=== PATIENT | female | born 1990 | race African-American/Black ===

== ENCOUNTER 2016-11-20 16:36 | Emergency (ER) | payer MEDICAID ==
--- NOTE | 2016-11-20 16:57 | ER Document Report ---
ED Medical Screen (RME) - General Stated Complaint: ABDOMINAL PAIN Mode of Arrival: Ambulatory Information source: Patient Notes: 25 y/o F presents to ED c/o right lower abd/pelvic pain over the last 2 days. Reports had positive home urine test approximately 1 week ago. LMP 10/21, . Denies fever, dysuria, vaginal bleeding or discharge. I have greeted and performed a rapid initial assessment of this patient. A comprehensive ED assessment and evaluation of the patient, analysis of test results and completion of the medical decision making process will be conducted by additional ED providers. TRAVEL OUTSIDE OF THE [place] IN LAST 30 DAYS: No - Related Data Allergies/Adverse Reactions: No Known Allergies Allergy (Verified 11/20/16 16:56) Past Medical History - Social History Chew tobacco use (# tins/day): No Frequency of alcohol use: None Drug Abuse: None Renal/ Medical History: Reports: Hx Ovarian Cysts, Hx Pelvic Inflammatory Disease. Denies: Hx Peritoneal Dialysis - Immunizations Immunizations up to date: No Hx Diphtheria, Pertussis, Tetanus Vaccination: Yes Physical Exam - General General appearance: Appears well, Alert In distress: None - Respiratory Respiratory status: No respiratory distress
[2016-11-20 17:21] LABS: ABSOLUTE BASOPHILS # (AUTO) 0.1 10^3/uL (0.0-0.2); ABSOLUTE EOSINOPHILS # (AUTO) 0.1 10^3/uL (0.0-0.6); ABSOLUTE LYMPHOCYTES (AUTO) 2.8 10^3/uL (0.5-4.7); ABSOLUTE MONOCYTES (AUTO) 0.8 10^3/uL (0.1-1.4); ABSOLUTE NEUT (AUTO) 8.4 10^3/uL (1.7-8.2); BASOPHILS % (AUTO) 0.5 % (0-2); EOSINOPHILS % (AUTO) 0.8 % (0-6); HEMATOCRIT 34.8 % (36.0-47.0); HEMOGLOBIN 11.4 g/dL (12.0-15.5); HGB HCT DIFFERENCE -0.6; LYMPHOCYTES % (AUTO) 22.9 % (13-45); MEAN CORPUSCULAR HEMOGLOBIN 25.8 pg (27.0-33.4); MEAN CORPUSCULAR HGB CONC 32.7 g/dL (32.0-36.0); MEAN CORPUSCULAR VOLUME 79 fl (80-97); MONOCYTES % (AUTO) 6.3 % (3-13); RED BLOOD COUNT 4.41 10^6/uL (3.72-5.28); RED CELL DISTRIBUTION WIDTH 15.2 % (11.5-14.0); SEGMENTED NEUTROPHILS % (AUTO) 69.5 % (42-78); WHITE BLOOD COUNT 12.1 10^3/uL (4.0-10.5)
[2016-11-20 17:33] LABS: APPEARANCE,URINE CLEAR; BILIRUBIN,URINE NEGATIVE (NEGATIVE); GLUCOSE, URINE NEGATIVE (NEGATIVE); KETONES,URINE NEGATIVE (NEGATIVE); LEUKOCYTE ESTERASE,URINE TRACE (NEGATIVE); NITRITE,URINE NEGATIVE (NEGATIVE); PROTEIN,URINE NEGATIVE (NEGATIVE); URINE SPECIFIC GRAVITY 1.028; UROBILINOGEN,URINE NEGATIVE mg/dL (<2.0)
[2016-11-20 17:43] LABS: ALANINE AMINOTRANSFERASE 21 U/L (9-52); ALBUMIN 4.4 g/dL (3.5-5.0); ALKALINE PHOSPHATASE 53 U/L (38-126); ANION GAP 12 (5-19); ASPARTATE AMINO TRANSFERASE 14 U/L (14-36); BILIRUBIN,TOTAL 0.3 mg/dL (0.2-1.3); BLOOD UREA NITROGEN 12 mg/dL (7-20); CALCIUM 9.9 mg/dL (8.4-10.2); CARBON DIOXIDE 24 mmol/L (22-30); CHLORIDE 102 mmol/L (98-107); GLUCOSE 82 mg/dL (75-110); LIPASE 349.6 U/L (23-300); POTASSIUM 4.1 mmol/L (3.6-5.0); SODIUM 137.5 mmol/L (137-145); TOTAL PROTEIN 7.9 g/dL (6.3-8.2)
[2016-11-20] MEDS ORDERED: NORMAL SALINE 1000 ML 1,000 ML IV ONE (18:18)
--- NOTE | 2016-11-20 18:35 | ER Document Report ---
ED GI/ - General Mode of Arrival: Ambulatory Information source: Patient TRAVEL OUTSIDE OF THE [place] IN LAST 30 DAYS: No - HPI Patient complains to provider of: Other - see narrative Onset: Other Quality of pain: Cramping Associated symptoms: Other - positive at home test Similar symptoms previously: No Recently seen / treated by doctor: No <NISHA TELLO - Last Filed: 11/20/16 21:38> <VILLA GONG - Last Filed: 11/20/16 22:32> - General Chief Complaint: Abdominal Pain Stated Complaint: ABDOMINAL PAIN Notes: Patient is a 25 year old female that presents to the emergency department today with complaints of a positive at home test and RLQ abdominal pain. Patient states that she recently took a test which was positive. Patient states her last menstrual period was October 21. Patient states she is dizzy. Patient denies any vaginal bleeding, vomiting, diarrhea, fevers, or urinary symptoms. (NISHA TELLO) - Related Data Allergies/Adverse Reactions: No Known Allergies Allergy (Verified 11/20/16 16:56) Past Medical History - General Information source: Patient - Social History Smoking Status: Never Smoker Cigarette use (# per day): No Chew tobacco use (# tins/day): No Frequency of alcohol use: None Drug Abuse: None Lives with: Family Family History: Reviewed & Not Pertinent, Hypertension, Malignancy Patient has suicidal ideation: No Patient has homicidal ideation: No Renal/ Medical History: Reports: Hx Ovarian Cysts, Hx Pelvic Inflammatory Disease Surgical Hx: Negative - Immunizations Immunizations up to date: No Hx Diphtheria, Pertussis, Tetanus Vaccination: Yes <NISHA TELLO - Last Filed: 11/20/16 21:38> Review of Systems - Review of Systems Constitutional: denies: Fever EENT: No symptoms reported Cardiovascular: See HPI, Dizziness Respiratory: No symptoms reported Gastrointestinal: See HPI, Abdominal pain - RLQ. denies: Diarrhea, Vomiting Genitourinary: denies: Dysuria Female Genitourinary: See HPI, . denies: Vaginal bleeding Musculoskeletal: No symptoms reported Skin: No symptoms reported Hematologic/Lymphatic: No symptoms reported Neurological/Psychological: No symptoms reported -: Yes All other systems reviewed and negative <NISHA TELLO - Last Filed: 11/20/16 21:38> Physical Exam - Vital signs Interpretation: Normal - General General appearance: Appears well, Alert - HEENT Head: Normocephalic, Atraumatic Eyes: Normal Pupils: PERRL - Respiratory Respiratory status: No respiratory distress Chest status: Nontender Breath sounds: Normal Chest palpation: Normal - Cardiovascular Rhythm: Regular Heart sounds: Normal auscultation Murmur: No - Abdominal Inspection: Normal Distension: No distension Bowel sounds: Normal Tenderness: Nontender Organomegaly: No organomegaly - Back Back: Normal, Nontender - Extremities General upper extremity: Normal inspection, Nontender, Normal color, Normal ROM , Normal temperature General lower extremity: Normal inspection, Nontender, Normal color, Normal ROM , Normal temperature, Normal weight bearing. No: Elizabeth's sign - Neurological Neuro grossly intact: Yes Cognition: Normal Orientation: AAOx4 Vicky Coma Scale Eye Opening: Spontaneous Vicky Coma Scale Verbal: Oriented Vicky Coma Scale Motor: Obeys Commands [place] Coma Scale Total: 15 Speech: Normal Motor strength normal: LUE, RUE, LLE, RLE Sensory: Normal - Psychological Associated symptoms: Normal affect, Normal mood - Skin Skin Temperature: Warm Skin Moisture: Dry Skin Color: Normal <VILLA GONG - Last Filed: 11/20/16 22:32> - Vital signs Vitals: Temp Pulse Resp BP Pulse Ox 98.3 F 96 18 124/94 H 100 11/20/16 16:56 11/20/16 16:56 11/20/16 16:56 11/20/16 16:56 11/20/16 16:56 Course - Laboratory Result Diagrams: 11/20/16 17:00 11/20/16 17:00 <NISHA TELLO - Last Filed: 11/20/16 21:38> - Laboratory Result Diagrams: 11/20/16 17:00 11/20/16 17:00 - Diagnostic Test Radiology reviewed: Reports reviewed <VILLA GONG - Last Filed: 11/20/16 22:32> - Re-evaluation Re-evalutation: 11/20/16 Patient with slightly elevated hCG. Last period was one month ago. No evidence for ectopic at this time. Blood work and urine within normal limits. 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 Return if any worsening or concerning symptoms. Understands agrees with plan. Stable for discharge. (WODOWSKI,VILLA MARVIN) - Vital Signs Vital signs: Temp Pulse Resp BP Pulse Ox 98 F 99 16 119/79 98 11/20/16 20:51 11/20/16 20:51 11/20/16 20:51 11/20/16 20:51 11/20/16 20:51 - Laboratory Laboratory results interpreted by me: 11/20/16 11/20/16 11/20/16 17:00 17:00 17:00 WBC 12.1 H Hgb 11.4 L Hct 34.8 L MCV 79 L MCH 25.8 L RDW 15.2 H Absolute Neutrophils 8.4 H Lipase 349.6 H Beta HCG, Quant 943.05 H Ur Leukocyte Esterase TRACE H Urine Ascorbic Acid 20 H Discharge <NISHA TELLO - Last Filed: 11/20/16 21:38> <VILLA GONG - Last Filed: 11/20/16 22:32> - Discharge Clinical Impression: Qualifiers: Weeks of gestation: less than 8 weeks Qualified Code(s): Z3A.01 - Less than 8 weeks gestation of Condition: Stable Disposition: HOME, SELF-CARE Instructions: (OM) Additional Instructions: Please follow-up with an MECHANICAL COMMISSIONING ENGINEER next week. Referrals: [facility] [Provider Group] - 11/25/16 Scribe Attestation: 11/20/16 22:32 I personally performed the services described in the documentation, reviewed and edited the documentation which was dictated to the scribe in my presence, and it accurately records my words and actions. (VILLA GONG) Scribe Documentation - Scribe Written by Scribe:: Yeni De Los Santos, 11/20/2016 2144 acting as scribe for :: Napoleon <NISHA TELLO - Last Filed: 11/20/16 21:38>
[2016-11-20 20:51] VITALS: BP 119/79
== END 2016-11-20 21:27 | disposition home or self-care (01) ==
LOC: ER 16:36
DX: O26.91 Pregnancy related conditions, unspecified, first trimester (principal); R10.31 Right lower quadrant pain; R42 Dizziness and giddiness; Z3A.01 Less than 8 weeks gestation of pregnancy
CPT/HCPCS: 99284; 96360; 36415; 84702; 83690; 85025; 80053; 81001; 76817; J7030

== ENCOUNTER 2016-12-02 17:32 | Emergency (ER) | payer MEDICAID ==
--- NOTE | 2016-12-02 18:09 | ER Document Report ---
ED Medical Screen (RME) - General Stated Complaint: FEVER,THROAT PAIN Time seen by provider: 18:07 Mode of Arrival: Ambulatory Information source: Patient Notes: 25-year-old female presents to ED for flulike symptoms with a sore throat and fever started this morning. Last menstrual period October 21. States she was seen November 20 and told she was 4 weeks. States she is having body aches. I have greeted and performed a rapid initial assessment of this patient. A comprehensive ED assessment and evaluation of the patient, analysis of test results and completion of medical decision making process will be conducted by an additional ED providers. TRAVEL OUTSIDE OF THE [place] IN LAST 30 DAYS: No - Related Data Allergies/Adverse Reactions: No Known Allergies Allergy (Verified 12/02/16 18:05) Past Medical History Renal/ Medical History: Reports: Hx Ovarian Cysts, Hx Pelvic Inflammatory Disease. Denies: Hx Peritoneal Dialysis - Immunizations Immunizations up to date: No Hx Diphtheria, Pertussis, Tetanus Vaccination: Yes
--- NOTE | 2016-12-02 22:35 | ER Document Report ---
ED Flu Like - General Chief Complaint: Cold Symptoms Stated Complaint: FEVER,THROAT PAIN Mode of Arrival: Ambulatory Information source: Patient Notes: 25 y/o M presents to ED c/o sore throat, body aches, and chest wall pain over the last 2 days. Reports children in home have had similar symptoms over the last week. Reports associated chills with unmeasured temperature at home. States had headache yesterday which has resolved. Reports is approximately 6 weeks , . Denies abd pain, n/v, vaginal bleeding or discharge, sob , hemoptysis. TRAVEL OUTSIDE OF THE [place] IN LAST 30 DAYS: No - HPI Onset: Yesterday Timing/Duration: Intermittent, Persistent Quality of pain: Achy Severity: Mild Pain Level: 2 Similar symptoms previously: Yes Recently seen / treated by doctor: No - Related Data Allergies/Adverse Reactions: No Known Allergies Allergy (Verified 12/02/16 18:05) Past Medical History - General Information source: Patient - Social History Smoking Status: Never Smoker Chew tobacco use (# tins/day): No Frequency of alcohol use: None Drug Abuse: None Lives with: Family Family History: Reviewed & Not Pertinent, Hypertension, Malignancy Patient has suicidal ideation: No Patient has homicidal ideation: No Renal/ Medical History: Reports: Hx Ovarian Cysts, Hx Pelvic Inflammatory Disease. Denies: Hx Peritoneal Dialysis Surgical Hx: Negative - Immunizations Hx Diphtheria, Pertussis, Tetanus Vaccination: Yes Review of Systems - Review of Systems Constitutional: See HPI EENT: See HPI Cardiovascular: No symptoms reported Respiratory: See HPI Gastrointestinal: No symptoms reported Genitourinary: No symptoms reported Female Genitourinary: No symptoms reported Musculoskeletal: No symptoms reported Skin: No symptoms reported Hematologic/Lymphatic: No symptoms reported Neurological/Psychological: No symptoms reported -: Yes All other systems reviewed and negative Physical Exam - Vital signs Vitals: Temp Pulse Resp BP Pulse Ox 98.8 F 102 H 20 125/77 100 12/02/16 17:48 12/02/16 17:48 12/02/16 17:48 12/02/16 17:48 12/02/16 17:48 Interpretation: Normal - General General appearance: Appears well, Alert In distress: None - HEENT Head: Normocephalic, Atraumatic Eyes: Normal Conjunctiva: Normal Eyelashes: Normal Pupils: PERRL Ears: Normal External canal: Normal Tympanic membrane: Normal Sinus: Normal Nasal: Normal Mouth/Lips: Normal Mucous membranes: Normal, Moist Pharynx: Erythema. No: Normal, Blood in hypopharynx, Exudate, Peritonsillar abscess, Post nasal drainage, Retropharyngeal abscess, Tonsillar hypertrophy, Uvular edema, Potential airway comprom., Other Neck: Normal. No: Anterior cervical chain, Posterior cervical chain, Lymphadenopathy, Meningismus, Subcutaneous emphysema - Respiratory Respiratory status: No respiratory distress. No: Labored, Tachypnea Chest status: Tender - mild tenderness with palpation to left upper anterior chest wall and left upper back worse when engaging left shoulder joint. No instability, crepitus, swelling, erythema, or warmth.. No: Nontender, Chest mass, Ecchymosis, No pleuritic chest pain, Pain on movement, Pain with cough, Pain with deep breathing, Wounds, Accessory muscle use, Prolonged expirations, Splinting, Other Breath sounds: Normal - CTAB. No: Rhonchi, Wheezing Chest palpation: Tender. No: Normal, Flail segment, [place] frothy sputum, Purulent sputum, Subcutaneous emphysema, Sucking chest wound, Ecchymosis, Wounds , Other - Cardiovascular Rhythm: Regular Heart sounds: Normal auscultation Murmur: No Pulses: Normal: Radial Normal capillary refill: Yes - Abdominal Inspection: Normal Distension: No distension Bowel sounds: Normal Tenderness: Nontender. No: Tender, McBurney's point, Sims's sign, Guarding, Rebound, Other Organomegaly: No organomegaly - Back Back: Normal, Nontender. No: Tender, Deformity/step-off, CVA tenderness, Vertebra tenderness, Scars, Scoliosis, Wounds, Other - Extremities General upper extremity: Normal inspection, Nontender, Normal color, Normal ROM , Normal temperature General lower extremity: Normal inspection, Nontender, Normal color, Normal ROM , Normal temperature, Normal weight bearing. No: Elizabeth's sign - Neurological Neuro grossly intact: Yes Cognition: Normal Orientation: AAOx4 Vicky Coma Scale Eye Opening: Spontaneous [place] Coma Scale Verbal: Oriented Vicky Coma Scale Motor: Obeys Commands [place] Coma Scale Total: 15 Speech: Normal Motor strength normal: LUE, RUE, LLE, RLE Sensory: Normal - Psychological Associated symptoms: Normal affect, Normal mood - Skin Skin Temperature: Warm Skin Moisture: Dry Skin Color: Normal Course - Re-evaluation Re-evalutation: 12/02/16 22:37 Patient hemodynamically stable, in no distress, afebrile, nontoxic, and appears well-hydrated. Rapid strep and influenza screen negative. Patient physical exam unremarkable with no suggestion of emergent infectious or cardiopulmonary etiology at this time. Will treat for likely uncomplicated viral illness at this time. Patient appears stable for discharge and agrees with home care, follow-up, and ED return precautions. - Vital Signs Vital signs: Temp Pulse Resp BP Pulse Ox 98.8 F 92 18 129/77 H 99 12/02/16 17:48 12/02/16 22:48 12/02/16 22:48 12/02/16 22:48 12/02/16 22:48 Discharge - Discharge Clinical Impression: Nonspecific syndrome suggestive of viral illness Condition: Stable Disposition: HOME, SELF-CARE Instructions: Acetaminophen, Chest Wall Pain ([facility]), Sore Throat ([facility]), Viral Syndrome ([facility]), Warm Packs ([facility]), Family Physicians / Practices Additional Instructions: Your rapid strep throat test and influenza screen were negative today. A culture of your throat has been obtained. If bacterial growth is noted that requires treatment with antibiotic, you will be contacted within 2 days with instructions on treatment. If you do not receive a call, please call back for results. Drink plenty of fluids, at least 2-3 liters of water per day. Continue taking a daily vitamin. Follow-up with your primary care provider this week. Return to the emergency department for any worsening symptoms or concerns. Referrals: [facility] [NO [facility]AL MD] - Follow up tomorrow
[2016-12-02 22:52] VITALS: BP 129/77
== END 2016-12-02 22:51 | disposition home or self-care (01) ==
LOC: ER 17:32
DX: B34.9 Viral infection, unspecified (principal); R50.9 Fever, unspecified; R07.0 Pain in throat; R52 Pain, unspecified; R07.89 Other chest pain; Z3A.01 Less than 8 weeks gestation of pregnancy
CPT/HCPCS: 87070; 87804; 87880; 99283

== ENCOUNTER 2017-01-11 21:42 | Emergency (ER) | payer MEDICAID ==
[2017-01-12] MEDS ORDERED: ACETAMINOPHEN 325 MG TABLET PO ONE (02:40)
[2017-01-12 03:13] LABS: APPEARANCE,URINE CLEAR; BILIRUBIN,URINE NEGATIVE (NEGATIVE); GLUCOSE, URINE NEGATIVE (NEGATIVE); KETONES,URINE NEGATIVE (NEGATIVE); LEUKOCYTE ESTERASE,URINE TRACE (NEGATIVE); NITRITE,URINE NEGATIVE (NEGATIVE); PROTEIN,URINE NEGATIVE (NEGATIVE); URINE SPECIFIC GRAVITY 1.011; UROBILINOGEN,URINE NEGATIVE mg/dL (<2.0)
--- NOTE | 2017-01-12 04:39 | ER Document Report ---
ED General Pain - General Chief Complaint: Back and L side pain, nausea Stated Complaint: LEFT PAIN ALL DOWN SIDE GOING INTO BACK/NAUSEA Notes: Patient is a 12 week 26-year-old female presents emergency Department complaining of suprapubic discomfort and nausea. Patient states she has followed with OBGYN, Has had US to confirm IUP. She states this pain is constant and worse along the left side of her belly with associated nausea. she has had this discomfort for three days. She has not taken any medication for it. She denies pyuria, hematuria, urinary frequency, urgency, vaginal pain/ discomfort/discharge/bleeding. [facility] TRAVEL OUTSIDE OF THE [place] IN LAST 30 DAYS: No - Related Data Allergies/Adverse Reactions: No Known Allergies Allergy (Verified 12/02/16 18:05) Past Medical History - Social History Smoking Status: Never Smoker Frequency of alcohol use: None Drug Abuse: None Family History: Reviewed & Not Pertinent, Hypertension, Malignancy Renal/ Medical History: Reports: Hx Ovarian Cysts, Hx Pelvic Inflammatory Disease. Denies: Hx Peritoneal Dialysis Surgical Hx: Negative - Immunizations Immunizations up to date: No Hx Diphtheria, Pertussis, Tetanus Vaccination: Yes Review of Systems - Review of Systems Gastrointestinal: See HPI -: Yes All other systems reviewed and negative Physical Exam - Vital signs Vitals: Temp Pulse Resp BP Pulse Ox 98.5 F 93 19 111/69 98 01/11/17 22:06 01/11/17 22:06 01/11/17 22:06 01/11/17 22:06 01/11/17 22:06 - Notes Notes: PHYSICAL EXAM GENERAL: Alert, interacts well. HEAD: Normocephalic, atraumatic. EYES: Pupils equal, round, and reactive to light. Extraocular movements intact. ENT: Oral mucosa moist, tongue midline. NECK: Full range of motion. Supple. Trachea midline. LUNGS: Clear to auscultation bilaterally, no wheezes, rales, or rhonchi. No respiratory distress. HEART: Regular rate and rhythm. No murmurs, gallops, or rubs. ABDOMEN: Soft, nondistended, mild tenderness in suprapubic area. No guarding, rebound, or rigidity.. Bowel sounds present in all 4 quadrants. Female exam deferred EXTREMITIES: Moves all 4 extremities spontaneously. No edema, radial and dorsalis pedis pulses 2/4 bilaterally. No cyanosis. NEUROLOGICAL: Alert and oriented x4. Normal speech. PSYCH: Normal affect, normal mood. SKIN: Warm, dry, normal turgor. No rashes or lesions noted. Course - Re-evaluation Re-evalutation: 01/12/17 07:43 Patient is a 26-year-old female presents emergency Department complaining of suprapubic pain with nausea. Patient responded well to Zofran and Tylenol. No evidence of urinary tract infection on UA. Patient asymptomatic for any concerns for bacterial vaginosis, yeast infection. Transvaginal ultrasound reveals a 12 week living IUP as well as fibroid uterus. Discussed with patient the use of Tylenol and can follow-up with OB - Vital Signs Vital signs: Temp Pulse Resp BP Pulse Ox 98.0 F 92 16 120/81 99 01/12/17 06:29 01/12/17 06:29 01/12/17 06:29 01/12/17 06:29 01/12/17 06:29 - Laboratory Laboratory results interpreted by me: 01/12/17 01/12/17 01:50 02:59 Beta HCG, Quant 06642.00 H Ur Leukocyte Esterase TRACE H Urine Ascorbic Acid 40 H - Diagnostic Test Radiology reviewed: Reports reviewed Discharge - Discharge Clinical Impression: Abdominal pain affecting Condition: Good Disposition: HOME, SELF-CARE Instructions: Abdominal Pain ([facility]), Acetaminophen Additional Instructions: Please be sure to follow up with OBGYN this week if your symptoms are not improving with [id number] remedies. Prescriptions: Ondansetron [Zofran Odt 4 mg Tablet] 1 - 2 tab PO Q4H PRN #15 tab.rapdis PRN Reason: For Nausea/Vomiting Forms: Parent Work Note, Return to Work
[2017-01-12] MEDS ORDERED: ONDANSETRON 4 MG TAB.RAPDIS PO ONE (05:07)
[2017-01-12 06:39] VITALS: BP 120/81
== END 2017-01-12 06:29 | disposition home or self-care (01) ==
LOC: ER 21:42
DX: O26.91 Pregnancy related conditions, unspecified, first trimester (principal); R10.9 Unspecified abdominal pain; R11.0 Nausea; R10.2 Pelvic and perineal pain; D25.9 Leiomyoma of uterus, unspecified; Z3A.12 12 weeks gestation of pregnancy
CPT/HCPCS: 99284; 86900; 86901; 36415; 84702; 81001; 76817; 93976; J3490; S0119

== ENCOUNTER 2017-01-13 21:29 | Inpatient (IN) | payer MEDICAID ==
[2017-01-13 22:18] LABS: ABSOLUTE BASOPHILS # (AUTO) 0.1 10^3/uL (0.0-0.2); ABSOLUTE LYMPHOCYTES (AUTO) 1.6 10^3/uL (0.5-4.7); ABSOLUTE MONOCYTES (AUTO) 0.7 10^3/uL (0.1-1.4); BASOPHILS % (AUTO) 0.4 % (0-2); EOSINOPHILS % (AUTO) 0.1 % (0-6); HEMATOCRIT 33.4 % (36.0-47.0); HGB HCT DIFFERENCE -0.4; LYMPHOCYTES % (AUTO) 10.7 % (13-45); MEAN CORPUSCULAR HEMOGLOBIN 25.3 pg (27.0-33.4); MEAN CORPUSCULAR VOLUME 77 fl (80-97); MONOCYTES % (AUTO) 4.3 % (3-13); RED BLOOD COUNT 4.35 10^6/uL (3.72-5.28); RED CELL DISTRIBUTION WIDTH 14.5 % (11.5-14.0); SEGMENTED NEUTROPHILS % (AUTO) 84.5 % (42-78); WHITE BLOOD COUNT 15.3 10^3/uL (4.0-10.5)
[2017-01-13 22:30] LABS: ALANINE AMINOTRANSFERASE 17 U/L (9-52); ALBUMIN 4.3 g/dL (3.5-5.0); ALKALINE PHOSPHATASE 56 U/L (38-126); ANION GAP 17 (5-19); ASPARTATE AMINO TRANSFERASE 17 U/L (14-36); BILIRUBIN,DIRECT 0.3 mg/dL (0.0-0.4); BILIRUBIN,TOTAL 0.8 mg/dL (0.2-1.3); BLOOD UREA NITROGEN 8 mg/dL (7-20); CARBON DIOXIDE 18 mmol/L (22-30); CHLORIDE 103 mmol/L (98-107); CREATININE RESULT 0.62 mg/dL (0.52-1.25); GLUCOSE 93 mg/dL (75-110); LIPASE 119.6 U/L (23-300); SODIUM 137.6 mmol/L (137-145)
[2017-01-14] MEDS ORDERED: ONDANSETRON HCL INJ/PF 4 MG/2 ML SDV IV ONE ×2 (00:06→02:26)
[2017-01-14] MEDS ORDERED: MORPHINE SULFATE 10 MG/ML INJ IV ONE ×2 (00:06→00:37)
[2017-01-14] MEDS ORDERED: NORMAL SALINE 1000 ML 1,000 ML IV ONE ×2 (00:07→03:06)
--- NOTE | 2017-01-14 00:09 | ER Document Report ---
ED GI/ - General Chief Complaint: Shortness Of Breath Stated Complaint: ABDOMINAL PAIN Time seen by provider: 00:05 Notes: Patient is a 26-year-old female, A3 at 12 weeks gestation by first trimester ultrasound, that comes to the emergency department for chief complaint of lower abdominal pain and nausea, she states she has had intermittent pains since Wednesday but today she had persistent worsening pain which was different. She also reports left flank pain (she points to the lower buttocks). She denies vomiting, fever, vaginal bleeding, dysuria, discharge. Patient states that she was seen by SCREEN PRINTING PASTER yesterday and told she had a fibroid in her uterus near her cervix. Patient denies any other medical history. TRAVEL OUTSIDE OF THE [place] IN LAST 30 DAYS: No - Related Data Allergies/Adverse Reactions: No Known Allergies Allergy (Verified 12/02/16 18:05) Past Medical History - General Information source: Patient - Social History Smoking Status: Never Smoker Frequency of alcohol use: None Drug Abuse: None Lives with: Family Family History: Reviewed & Not Pertinent, Hypertension, Malignancy Patient has suicidal ideation: No Patient has homicidal ideation: No Renal/ Medical History: Reports: Hx Ovarian Cysts, Hx Pelvic Inflammatory Disease. Denies: Hx Peritoneal Dialysis Surgical Hx: Negative - Immunizations Immunizations up to date: No Hx Diphtheria, Pertussis, Tetanus Vaccination: Yes Review of Systems - Review of Systems Constitutional: See HPI EENT: No symptoms reported Cardiovascular: No symptoms reported Respiratory: No symptoms reported Gastrointestinal: See HPI Genitourinary: See HPI Female Genitourinary: See HPI Musculoskeletal: No symptoms reported Skin: No symptoms reported Hematologic/Lymphatic: No symptoms reported Neurological/Psychological: No symptoms reported Physical Exam - Vital signs Vitals: Temp Pulse Resp BP Pulse Ox 99.1 F 120 H 24 H 125/76 99 01/13/17 21:53 01/13/17 21:53 01/13/17 21:53 01/13/17 21:53 01/13/17 21:53 Interpretation: Normal - General General appearance: Anxious In distress: Moderate - Patient appears to be very uncomfortable, has difficulty staying still on the bed - HEENT Head: Normocephalic, Atraumatic Eyes: Normal Pupils: PERRL - Respiratory Respiratory status: No respiratory distress Chest status: Nontender Breath sounds: Normal Chest palpation: Normal - Cardiovascular Rhythm: Regular, Tachycardia Heart sounds: Normal auscultation, S1 appreciated, S2 appreciated Murmur: No - Abdominal Inspection: Normal Distension: No distension Bowel sounds: Normal Tenderness: Tender - Patient is very tender in the mid to lower abdomen, worse in the right lower quadrant but also present in the left lower quadrant Organomegaly: No organomegaly - Back Back: Normal, Nontender, CVA tenderness - Left-sided - Extremities General upper extremity: Normal inspection, Nontender, Normal color, Normal ROM , Normal temperature General lower extremity: Normal inspection, Nontender, Normal color, Normal ROM , Normal temperature, Normal weight bearing. No: Elizabeth's sign - Neurological Neuro grossly intact: Yes Cognition: Normal Orientation: AAOx4 [place] Coma Scale Eye Opening: Spontaneous [place] Coma Scale Verbal: Oriented Vicky Coma Scale Motor: Obeys Commands [place] Coma Scale Total: 15 Speech: Normal Motor strength normal: LUE, RUE, LLE, RLE Sensory: Normal - Psychological Associated symptoms: Anxious - Anxious and somewhat tearful - Skin Skin Temperature: Warm Skin Moisture: Dry Skin Color: Normal Course - Re-evaluation Re-evalutation: Patient tachycardic, obviously in pain, pain actually appears to be the worst in the right lower quadrant on initial examination, leukocytosis of 15,000 with elevated neutrophils, chills but does not have fever. Difficult to examine patient because of her discomfort. Patient given morphine, Zofran, IV fluids. Ultrasound performed, no evidence of appendicitis, ultrasound shows enlargement fibroid uterus with an IUP with a heart beat present. On reexamination patient' s pain appears to be in the mid to left lower quadrant now, much less so in the right lower quadrant, nonspecific or suggestive of appendicitis. Easier to examine now, has obvious left-sided CVA tenderness. Urine shows bacteria, white blood cells, red blood cells. Giving dose of Rocephin. Patient denying any vaginal bleeding or discharge. Patient has recently had a pelvic exam per patient. No free fluid on ultrasound suggesting PID. Patient was discussed with Dr. Alonzo, recommends consultation with SCREEN PRINTING PASTER and admission for pyelonephritis. Discussed with Dr. Mccartney, albumin reinforced concrete inspector, she recommends that patient probably has a combination of pain from growing fibroid and from pyelonephritis , recommends that she will consult on the patient. Discussed with Dr. Lyman, patient will be admitted to the medical floor. - Vital Signs Vital signs: Temp Pulse Resp BP Pulse Ox 98.9 F 101 H 19 135/71 H 98 01/14/17 00:25 01/14/17 00:25 01/14/17 00:25 01/14/17 00:25 01/14/17 00:25 - Laboratory Result Diagrams: 01/13/17 22:00 01/13/17 22:00 Laboratory results interpreted by me: 01/13/17 01/13/17 01/14/17 22:00 22:00 01:29 WBC 15.3 H Hgb 11.0 L Hct 33.4 L MCV 77 L MCH 25.3 L RDW 14.5 H Seg Neutrophils % 84.5 H Lymphocytes % 10.7 L Absolute Neutrophils 13.0 H Carbon Dioxide 18 L Beta HCG, Quant 73647.00 H Urine Ketones 80 H Urine Blood SMALL H Ur Leukocyte Esterase LARGE H Discharge - Discharge Clinical Impression: Flank pain, Tachycardia Abdominal pain Qualifiers: Abdominal location: lower abdomen, unspecified Qualified Code(s): R10.30 - Lower abdominal pain, unspecified Fibroid uterus Qualifiers: Uterine leiomyoma location: unspecified location Qualified Code(s): D25.9 - Leiomyoma of uterus, unspecified Urinary tract infection Qualifiers: Urinary tract infection type: site unspecified Hematuria presence: without hematuria Qualified Code(s): N39.0 - Urinary tract infection, site not specified Leukocytosis Qualifiers: Leukocytosis type: unspecified Qualified Code(s): D72.829 - Elevated white blood cell count, unspecified Admitting Provider: Hospitalist Unit Admitted: Surgical Floor
[2017-01-14 01:56] LABS: APPEARANCE,URINE CLOUDY; BILIRUBIN,URINE NEGATIVE (NEGATIVE); GLUCOSE, URINE NEGATIVE (NEGATIVE); KETONES,URINE 80 mg/dL (NEGATIVE); LEUKOCYTE ESTERASE,URINE LARGE (NEGATIVE); NITRITE,URINE NEGATIVE (NEGATIVE); PROTEIN,URINE NEGATIVE (NEGATIVE); URINE SPECIFIC GRAVITY 1.009; UROBILINOGEN,URINE NEGATIVE mg/dL (<2.0)
[2017-01-14] MEDS ORDERED: CEFTRIAXONE 1 GM/D5W RTU 50 ML IV ONE (02:17)
[2017-01-14] MEDS ORDERED: DIPHENHYDRAMINE HCL 50 MG/ML VIAL IV ONE ×2 (02:26→21:30)
[2017-01-14] MEDS ORDERED: CALCIUM CARBONATE 500 MG TABLET PO PRN (05:45)
[2017-01-14] MEDS ORDERED: IPRATROPIUM/ALBUTEROL 0.5-2.5 MG/3 ML AMPUL NEB PRN (05:45)
[2017-01-14] MEDS ORDERED: ACETAMINOPHEN 325 MG TABLET PO PRN ×2 (05:46→18:58)
[2017-01-14] MEDS ORDERED: ONDANSETRON HCL INJ/PF 4 MG/2 ML SDV IV PRN (05:46)
[2017-01-14] MEDS ORDERED: ACYCLOVIR 200 MG CAPSULE PO SCH (06:00)
[2017-01-14] MEDS ORDERED: HEPARIN SOD (PORCINE) 5,000 UNIT/ML 1 ML SYRINGE SUBCUT SCH (06:00)
[2017-01-14] MEDS ORDERED: NORMAL SALINE 1000 ML 1,000 ML IV SCH (06:00)
[2017-01-14] MEDS ORDERED: CALCIUM CARBONATE 500 MG TAB.CHEW PO PRN ×2 (06:04→06:05)
[2017-01-14 06:14] LABS: ABSOLUTE LYMPHOCYTES (AUTO) 1.7 10^3/uL (0.5-4.7); ABSOLUTE MONOCYTES (AUTO) 0.6 10^3/uL (0.1-1.4); ABSOLUTE NEUT (AUTO) 8.9 10^3/uL (1.7-8.2); BASOPHILS % (AUTO) 0.3 % (0-2); EOSINOPHILS % (AUTO) 0.1 % (0-6); LYMPHOCYTES % (AUTO) 14.8 % (13-45); MEAN CORPUSCULAR HEMOGLOBIN 25.7 pg (27.0-33.4); MEAN CORPUSCULAR HGB CONC 33.2 g/dL (32.0-36.0); MEAN CORPUSCULAR VOLUME 77 fl (80-97); MONOCYTES % (AUTO) 5.5 % (3-13); RED BLOOD COUNT 3.88 10^6/uL (3.72-5.28); RED CELL DISTRIBUTION WIDTH 14.7 % (11.5-14.0); SEGMENTED NEUTROPHILS % (AUTO) 79.3 % (42-78); WHITE BLOOD COUNT 11.2 10^3/uL (4.0-10.5)
[2017-01-14] MEDS ORDERED: LACTULOSE SYRUP 20 GM/30 ML UDCUP PO ONE (06:15)
[2017-01-14] MEDS ORDERED: MINERAL OIL ENEMA 133 ML PR PRN ×2 (06:23→16:30)
[2017-01-14 06:26] LABS: ANION GAP 12 (5-19); BLOOD UREA NITROGEN 5 mg/dL (7-20); CALCIUM 9.1 mg/dL (8.4-10.2); CARBON DIOXIDE 20 mmol/L (22-30); CHLORIDE 108 mmol/L (98-107); CREATININE RESULT 0.64 mg/dL (0.52-1.25); GLUCOSE 88 mg/dL (75-110); SODIUM 139.8 mmol/L (137-145)
--- NOTE | 2017-01-14 06:34 | PDOC H&P ---
History of Present Illness Admission Date/PCP: 01/14/17 05:57 Patient complains of: Abdominal pain History of Present Illness: MAR DUKE is a 26 year old female with a past medical history of 12 weeks , complicated by miscarriage 3 and uterine fibroids. Who's had exceptional abdominal pain over a 6 day associated with nausea vomiting and at least 5 days of severe constipation. She denies dysuria malodorous urine or discharge. In the emergency room she's found to have leukocytosis and a urinalysis somewhat suggestive of urinary tract infection, ultrasound of the kidneys are reassuring and without suggestion of hydronephrosis or pyelonephritis. she started on empiric antibiotics and referred to the hospitalist for admission. Past Medical History Renal/ Medical History: Reports: Other - Uterine fibroids Hematology: Reports: Anemia Social History Information Source: Patient, Relative Lives with: Family Smoking Status: Never Smoker Frequency of Alcohol Use: None Hx Recreational Drug Use: No Hx Prescription Drug Abuse: No - Advance Directive Resuscitation Status: Full Code Family History Family History: DM, Hypertension, Malignancy Parental Family History Reviewed: Yes Children Family History Reviewed: Yes Sibling(s) Family History Reviewed.: Yes Medication/Allergy Home Medications: Hydrocodone/Acetaminophen [Vicodin 5-300 mg Tablet] 1 - 2 tab PO ASDIR PRN #15 tab 03/30/15 Oxycodone HCl/Acetaminophen [Percocet 5-325 mg Tablet] 1 - 2 tab PO ASDIR PRN # 15 tablet 04/03/15 Hydrocodone Bit/Acetaminophen [Hydrocodon-Acetaminophen 5-325] 1 each PO Q4HP PRN #15 tablet 04/16/15 Acyclovir [Zovirax 200 mg Capsule] 200 mg PO Q4H #50 capsule 06/30/15 Metronidazole 500 mg PO BID #14 tablet 06/30/15 Oxycodone HCl/Acetaminophen [Percocet 5-325 mg Tablet] 1 - 2 tab PO Q4H PRN #25 tablet 06/30/15 Metronidazole [Flagyl 500 mg Tablet] 500 mg PO Q6H #28 tablet 08/17/15 Hydrocodone/Acetaminophen [[place] 5-325 mg Tablet] 1 tab PO Q6H PRN #8 tablet 08/05 Ondansetron [Zofran Odt 4 mg Tablet] 1 - 2 tab PO Q4H PRN #15 tab.rapdis Allergies/Adverse Reactions: No Known Allergies Allergy (Verified 12/02/16 18:05) Review of Systems Constitutional: PRESENT: anorexia. ABSENT: chills, fever(s), headache(s), weight gain, weight loss Eyes: ABSENT: visual disturbances Ears: ABSENT: hearing changes Cardiovascular: ABSENT: chest pain, dyspnea on exertion, edema, orthropnea, palpitations Respiratory: ABSENT: cough, hemoptysis Gastrointestinal: PRESENT: abdominal pain, bloating, constipation, nausea. ABSENT: diarrhea, hematemesis, hematochezia, vomiting Genitourinary: ABSENT: dysuria, hematuria Musculoskeletal: ABSENT: joint swelling Integumentary: ABSENT: rash, wounds Neurological: ABSENT: abnormal gait, abnormal speech, confusion, dizziness, focal weakness, syncope Psychiatric: ABSENT: anxiety, depression, homidical ideation, suicidal ideation Endocrine: ABSENT: cold intolerance, heat intolerance, polydipsia, polyuria Hematologic/Lymphatic: ABSENT: easy bleeding, easy bruising Physical Exam Vital Signs: Temp Pulse Resp BP Pulse Ox 98.9 F 101 H 19 135/71 H 98 01/14/17 00:25 01/14/17 00:25 01/14/17 00:25 01/14/17 00:25 01/14/17 00:25 General appearance: PRESENT: cooperative, mild distress Head exam: PRESENT: atraumatic, normocephalic Eye exam: PRESENT: conjunctiva pink, EOMI, PERRLA. ABSENT: scleral icterus Ear exam: PRESENT: normal external ear exam Mouth exam: PRESENT: moist, tongue midline Neck exam: ABSENT: carotid bruit, JVD, lymphadenopathy, thyromegaly Respiratory exam: PRESENT: clear to auscultation rene. ABSENT: rales, rhonchi, wheezes Cardiovascular exam: PRESENT: RRR. ABSENT: diastolic murmur, rubs, systolic murmur Pulses: PRESENT: normal dorsalis pedis pul Vascular exam: PRESENT: normal capillary refill GI/Abdominal exam: PRESENT: firm, hypoactive bowel sounds, tenderness - Left lower quadrant pain with palpation to the sigmoid. ABSENT: distended, guarding , mass, Sims's sign, organolmegaly, rebound Rectal exam: PRESENT: deferred Extremities exam: PRESENT: full ROM. ABSENT: calf tenderness, clubbing, pedal edema Neurological exam: PRESENT: alert, awake, oriented to person, oriented to place , oriented to time, oriented to situation, CN II-XII grossly intact. ABSENT: motor sensory deficit Psychiatric exam: PRESENT: appropriate affect, normal mood. ABSENT: homicidal ideation, suicidal ideation Skin exam: PRESENT: dry, intact, warm. ABSENT: cyanosis, rash Results Laboratory Results: 01/14/17 06:02 01/14/17 06:02 WBC 11.2 H RBC 3.88 Hgb 10.0 L Hct 30.0 L MCV 77 L MCH 25.7 L MCHC 33.2 RDW 14.7 H Plt Count 186 Seg Neutrophils % 79.3 H Lymphocytes % 14.8 Monocytes % 5.5 Eosinophils % 0.1 Basophils % 0.3 Absolute Neutrophils 8.9 H Absolute Lymphocytes 1.7 Absolute Monocytes 0.6 Absolute Eosinophils 0.0 Absolute Basophils 0.0 Impressions: Obstetrics Ultrasound 01/14/17 00:20 IMPRESSION: LIVING INTRAUTERINE , at-risk due to a fibroid uterus including large lower uterine/cervical fibroids measuring 10 cm and 4.3 cm. EGA 12w 4d Trimester of : First - 0 to 13 weeks. Abdomen Ultrasound 01/14/17 00:21 IMPRESSION: As above. Renal Ultrasound 01/14/17 03:44 IMPRESSION: No acute or suspicious findings of the renal system.Known gravid uterus and fibroid uterus reported separately on Ob pelvic ultrasound from the same day. Assessment & Plan - Diagnosis (1) Fecal impaction Is this a current diagnosis for this admission?: YesPlan: This is clear by history and exam I'll avoid radiation exposure to the fetus she will receive lactulose by mouth and mineral oil enema, consider manual disimpaction if unsuccessful (2) Abdominal pain Qualifiers: Abdominal location: lower abdomen, unspecified Qualified Code(s): R10.30 - Lower abdominal pain, unspecified Is this a current diagnosis for this admission?: YesPlan: Patient be treated with narcotics which has exacerbated the issue and I will not reorder (3) Fibroid uterus Qualifiers: Uterine leiomyoma location: unspecified location Qualified Code(s): D25.9 - Leiomyoma of uterus, unspecified Is this a current diagnosis for this admission?: YesPlan: Unclear complicating factor will obtain [employer] consultation for evaluation (4) Leukocytosis Qualifiers: Leukocytosis type: unspecified Qualified Code(s): D72.829 - Elevated white blood cell count, unspecified Is this a current diagnosis for this admission?: YesPlan: Possibly urinary tract infection empiric antibiotics, though clearly the stress of severe pain and fecal impaction is a plausible cause. Will reevaluate with CBC (5) Urinary tract infection Qualifiers: Urinary tract infection type: site unspecified Hematuria presence: without hematuria Qualified Code(s): N39.0 - Urinary tract infection, site not specified Is this a current diagnosis for this admission?: YesPlan: Urine culture obtained and pending receiving empiric antibiotics and IV fluids - Time Time Spent: 50 to 70 Minutes - Inpatient Certification Medical Necessity: Need Close Monitoring Due to Risk of Patient Decompensation
[2017-01-14] MEDS ORDERED: MINERAL OIL ENEMA 133 ML PR ONE (07:00)
[2017-01-14] MEDS: CEFTRIAXONE 1 GM/D5W RTU 1 GM/50 ML RTUPB IV SCH (10:53)
--- NOTE | 2017-01-14 11:17 | PDOC CONSULTATION ---
History of Present Illness Admission Date/PCP: 01/14/17 05:46 Past Medical History Renal/ Medical History: Reports: Other - Uterine fibroids Social History Lives with: Family Smoking Status: Never Smoker Frequency of Alcohol Use: None Hx Recreational Drug Use: No Hx Prescription Drug Abuse: No - Advance Directive Resuscitation Status: Full Code Family History Family History: DM, Hypertension, Malignancy Parental Family History Reviewed: Yes Children Family History Reviewed: Yes Sibling(s) Family History Reviewed.: Yes Medication/Allergy Home Medications: Acetaminophen [Tylenol Extra Strength 500 mg Tablet] 1 tab PO Q6HP PRN 01/14/17 Allergies/Adverse Reactions: No Known Allergies Allergy (Verified 12/02/16 18:05) Physical Exam - Physical Exam Vital Signs: Temp Pulse Resp BP Pulse Ox 99.2 F 77 20 111/67 97 01/14/17 07:33 01/14/17 09:10 01/14/17 09:10 01/14/17 07:33 01/14/17 09:10 Intake & Output 01/13/17 01/14/17 01/15/17 06:59 06:59 06:59 Weight 85.9 kg General appearance: PRESENT: no acute distress, cooperative GI/Abdominal exam: PRESENT: hyperactive bowel sounds, soft - nontender Result Laboratory Results: 01/14/17 06:02 01/14/17 06:02 01/14/17 01/14/17 06:02 06:02 WBC 11.2 H RBC 3.88 Hgb 10.0 L Hct 30.0 L MCV 77 L MCH 25.7 L MCHC 33.2 RDW 14.7 H Plt Count 186 Seg Neutrophils % 79.3 H Lymphocytes % 14.8 Monocytes % 5.5 Eosinophils % 0.1 Basophils % 0.3 Absolute Neutrophils 8.9 H Absolute Lymphocytes 1.7 Absolute Monocytes 0.6 Absolute Eosinophils 0.0 Absolute Basophils 0.0 Sodium 139.8 Potassium 4.0 Chloride 108 H Carbon Dioxide 20 L Anion Gap 12 BUN 5 L Creatinine 0.64 Est GFR ( Amer) > 60 Est GFR (Non-Af Amer) > 60 Glucose 88 Calcium 9.1 Impressions: Obstetrics Ultrasound 01/14/17 00:20 IMPRESSION: LIVING INTRAUTERINE , at-risk due to a fibroid uterus including large lower uterine/cervical fibroids measuring 10 cm and 4.3 cm. EGA 12w 4d Trimester of : First - 0 to 13 weeks. Abdomen Ultrasound 01/14/17 00:21 IMPRESSION: As above. Renal Ultrasound 01/14/17 03:44 IMPRESSION: No acute or suspicious findings of the renal system.Known gravid uterus and fibroid uterus reported separately on Ob pelvic ultrasound from the same day. Assessment & Plan - Diagnosis (1) Flank pain Is this a current diagnosis for this admission?: Yes (2) Leukocytosis Qualifiers: Leukocytosis type: unspecified Qualified Code(s): D72.829 - Elevated white blood cell count, unspecified Is this a current diagnosis for this admission?: Yes (3) Abdominal pain affecting Is this a current diagnosis for this admission?: Yes - Plan Summary Plan Summary: IUP @ 12 wks, complicated UTI and fibroid uterus. D/W pt that fibroids may improve with , enlarge or remain the same. May make pains of worse but most likely with normalize. Recommend continuing with plans for enema for constipation and relief of gas pain. Thank you for allowing us to participate in the care of the patient. At this gestational age , no interventions are needed. Will follow up outpatient at scheduled appointment.
[2017-01-14] MEDS ORDERED: POLYETHYLENE GLYCOL 3350 POWDER 17 GM/1 PACKET PO PRN (16:23)
--- NOTE | 2017-01-14 16:23 | PDOC PROGRESS REPORT ---
Subjective Progress Note for:: 01/14/17 Subjective:: The patient is a 26-year-old -[place] female who is had 3 miscarriages in the past. She has large fibroid uterus and currently is 12 weeks . She has not yet been seen by CHIEF SCIENTIST. She presented to the emergency room with increasing abdominal pain. She had not had a bowel movement in the past 5 or 6 days and had developed nausea and vomiting. She had a renal ultrasound, abdominal ultrasound and OB ultrasound that were negative for anything acute. She did not have evidence of pyelonephritis. There was no urinary obstruction or evidence of stones. She was found to have evidence of a possible urinary tract infection and referred for admission. At the time of admission it was felt the patient was significantly constipated and she was given lactulose, MiraLAX and currently has received 3 enemaswith only minimal results. She has been seen by CHIEF SCIENTIST who has started her on IV fluids and recommends continuing the Rocephin for now. When I saw the patient this afternoon she is acutely uncomfortable. She states her abdominal pain has resolved however the pain is now in her rectum. She is doubled over and appears to be acutely uncomfortable. She denies fever or chills. No chest pain, shortness of breath or heart palpitations. No nausea or vomiting today. She has passed some gas but has been unable in spite of 3 enemas, lactulose and MiraLAX to have a bowel movement. She feels as if there is a large ball of stool stuck in her rectum. Physical Exam Vital Signs: Temp Pulse Resp BP Pulse Ox 98.9 F 87 20 105/59 L 96 01/14/17 15:41 01/14/17 15:41 01/14/17 15:41 01/14/17 15:41 01/14/17 15:41 Intake & Output 01/13/17 01/14/17 01/15/17 06:59 06:59 06:59 Weight 85.9 kg General appearance: PRESENT: mild distress, well-developed, well-nourished - She is extremely uncomfortable and unable to sit up straight. Head exam: PRESENT: atraumatic, normocephalic Mouth exam: PRESENT: moist, tongue midline Respiratory exam: PRESENT: clear to auscultation rene. ABSENT: rales, rhonchi, wheezes Cardiovascular exam: PRESENT: +S1, +S2, tachycardia GI/Abdominal exam: PRESENT: hyperactive bowel sounds, tenderness - She is tender to palpation in left lower quadrant. Psychiatric exam: PRESENT: anxious - She appears to be in pain Results Laboratory Results: 01/14/17 06:02 01/14/17 06:02 01/14/17 01/14/17 06:02 06:02 WBC 11.2 H RBC 3.88 Hgb 10.0 L Hct 30.0 L MCV 77 L MCH 25.7 L MCHC 33.2 RDW 14.7 H Plt Count 186 Seg Neutrophils % 79.3 H Lymphocytes % 14.8 Monocytes % 5.5 Eosinophils % 0.1 Basophils % 0.3 Absolute Neutrophils 8.9 H Absolute Lymphocytes 1.7 Absolute Monocytes 0.6 Absolute Eosinophils 0.0 Absolute Basophils 0.0 Sodium 139.8 Potassium 4.0 Chloride 108 H Carbon Dioxide 20 L Anion Gap 12 BUN 5 L Creatinine 0.64 Est GFR ( Amer) > 60 Est GFR (Non-Af Amer) > 60 Glucose 88 Calcium 9.1 Impressions: Obstetrics Ultrasound 01/14/17 00:20 IMPRESSION: LIVING INTRAUTERINE , at-risk due to a fibroid uterus including large lower uterine/cervical fibroids measuring 10 cm and 4.3 cm. EGA 12w 4d Trimester of : First - 0 to 13 weeks. Abdomen Ultrasound 01/14/17 00:21 IMPRESSION: As above. Renal Ultrasound 01/14/17 03:44 IMPRESSION: No acute or suspicious findings of the renal system.Known gravid uterus and fibroid uterus reported separately on Ob pelvic ultrasound from the same day. Assessment & Plan - Diagnosis (1) Fecal impaction Is this a current diagnosis for this admission?: YesPlan: The patient has failed 3 enemas, lactulose and MiraLAX. I am going to give the patient a SMOG (saline, mineral oil and glycerin) enema to see if we can get some results. Hopefully we can get the impaction low enough where we could manually disimpact her. I did speak to Dr. Mccartney who has no contraindication to her having more MiraLAX or lactulose. If the enema is not successful we could try MiraLAX every hour until she has a bowel movement. (2) 12 weeks gestation of Plan: This is a higher risk due to her fibroid uterus. She has been seen by CHIEF SCIENTIST who has discussed this with her. She will follow up with him as an outpatient. (3) Urinary tract infection Qualifiers: Urinary tract infection type: site unspecified Hematuria presence: without hematuria Qualified Code(s): N39.0 - Urinary tract infection, site not specified Is this a current diagnosis for this admission?: YesPlan: The patient had evidence of a urinary tract infection. She will continue IV Rocephin. This is the first day of treatment. Her urine has been sent for culture. If her culture is negative we can likely discontinue antibiotic therapy. (4) Abdominal pain Qualifiers: Abdominal location: lower abdomen, unspecified Qualified Code(s): R10.30 - Lower abdominal pain, unspecified Is this a current diagnosis for this admission?: YesPlan: Improving. The patient's pain has now migrated to her rectum. (5) Leukocytosis Qualifiers: Leukocytosis type: unspecified Qualified Code(s): D72.829 - Elevated white blood cell count, unspecified Is this a current diagnosis for this admission?: YesPlan: Possibly secondary to urinary tract infection. Certainly it could be reactive to pain. She will have a CBC drawn in the morning. (6) Fibroid uterus Qualifiers: Uterine leiomyoma location: unspecified location Qualified Code(s): D25.9 - Leiomyoma of uterus, unspecified Is this a current diagnosis for this admission?: YesPlan: Unfortunately there is nothing to do about this. Dr. Mccartney did indicate that it this in a good location within the uterus. She will follow-up with RATE QUOTING OPERATOR as an outpatient. - Time Time Spent with patient: 25-34 minutes - 25 minutes
[2017-01-14] MEDS ORDERED: GLYCERIN 99.5% (ANHYDROUS) 177 ML PR PRN (16:36)
[2017-01-14] MEDS: POLYETHYLENE GLYCOL 3350 POWDER 17 GM/1 PACKET PO PRN ×3 (19:53→21:59)
[2017-01-14 23:24] LABS: ABSOLUTE LYMPHOCYTES (AUTO) 1.4 10^3/uL (0.5-4.7); ABSOLUTE MONOCYTES (AUTO) 0.8 10^3/uL (0.1-1.4); BASOPHILS % (AUTO) 0.3 % (0-2); EOSINOPHILS % (AUTO) 0.3 % (0-6); HEMATOCRIT 29.5 % (36.0-47.0); HEMOGLOBIN 9.8 g/dL (12.0-15.5); HGB HCT DIFFERENCE -0.1; LYMPHOCYTES % (AUTO) 10.4 % (13-45); MEAN CORPUSCULAR HEMOGLOBIN 25.6 pg (27.0-33.4); MEAN CORPUSCULAR HGB CONC 33.4 g/dL (32.0-36.0); MEAN CORPUSCULAR VOLUME 77 fl (80-97); MONOCYTES % (AUTO) 6.4 % (3-13); RED BLOOD COUNT 3.84 10^6/uL (3.72-5.28); RED CELL DISTRIBUTION WIDTH 14.7 % (11.5-14.0); SEGMENTED NEUTROPHILS % (AUTO) 82.6 % (42-78); WHITE BLOOD COUNT 13.4 10^3/uL (4.0-10.5)
[2017-01-14 23:37] LABS: ANION GAP 13 (5-19); BLOOD UREA NITROGEN 6 mg/dL (7-20); CALCIUM 9.8 mg/dL (8.4-10.2); CARBON DIOXIDE 22 mmol/L (22-30); CHLORIDE 104 mmol/L (98-107); CREATININE RESULT 0.68 mg/dL (0.52-1.25); GLUCOSE 109 mg/dL (75-110); POTASSIUM 4.1 mmol/L (3.6-5.0); SODIUM 138.8 mmol/L (137-145)
[2017-01-15] MEDS: POLYETHYLENE GLYCOL 3350 POWDER 17 GM/1 PACKET PO PRN ×4 (00:31→06:02)
[2017-01-15 07:18] LABS: ABSOLUTE LYMPHOCYTES (AUTO) 1.5 10^3/uL (0.5-4.7); ABSOLUTE MONOCYTES (AUTO) 0.8 10^3/uL (0.1-1.4); ABSOLUTE NEUT (AUTO) 9.9 10^3/uL (1.7-8.2); BASOPHILS % (AUTO) 0.4 % (0-2); EOSINOPHILS % (AUTO) 0.2 % (0-6); HEMATOCRIT 29.6 % (36.0-47.0); HEMOGLOBIN 9.8 g/dL (12.0-15.5); HGB HCT DIFFERENCE -0.2; LYMPHOCYTES % (AUTO) 12.2 % (13-45); MEAN CORPUSCULAR HEMOGLOBIN 25.5 pg (27.0-33.4); MEAN CORPUSCULAR HGB CONC 33.2 g/dL (32.0-36.0); MEAN CORPUSCULAR VOLUME 77 fl (80-97); MONOCYTES % (AUTO) 6.2 % (3-13); RED BLOOD COUNT 3.86 10^6/uL (3.72-5.28); RED CELL DISTRIBUTION WIDTH 14.8 % (11.5-14.0); WHITE BLOOD COUNT 12.2 10^3/uL (4.0-10.5)
[2017-01-15 07:34] LABS: ANION GAP 14 (5-19); BLOOD UREA NITROGEN 6 mg/dL (7-20); CALCIUM 9.7 mg/dL (8.4-10.2); CARBON DIOXIDE 21 mmol/L (22-30); CHLORIDE 103 mmol/L (98-107); CREATININE RESULT 0.59 mg/dL (0.52-1.25); GLUCOSE 90 mg/dL (75-110); SODIUM 137.9 mmol/L (137-145)
[2017-01-15] MEDS ORDERED: DICYCLOMINE HCL 20 MG TABLET PO ONE (10:00)
[2017-01-15] MEDS ORDERED: TRAMADOL HCL 50 MG TABLET PO ONE (10:00)
[2017-01-15] MEDS: CEFTRIAXONE 1 GM/D5W RTU 1 GM/50 ML RTUPB IV SCH (10:04)
--- NOTE | 2017-01-15 16:06 | PDOC DISCHARGE SUMMARY ---
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 She will continue a bowel regimen at discharge (2) 12 weeks gestation of Summary: She will follow up with [facility] next week (3) Urinary tract infection Is this a current diagnosis for this admission?: YesSummary: She received 2 days of IV Rocephin. Urine culture had normal kyree and some Clare. No further treatment is needed. She is asymptomatic. (4) Rectal pain Summary: This morning the patient was having intractable rectal pain. She was given 1 dose of Bentyl and a tramadol with almost complete resolution. She is still having some pain at the time of discharge but it is much improved. She will follow up with [facility] as an outpatient. (5) Abdominal pain Is this a current diagnosis for this admission?: YesSummary: Secondary to fecal impaction. Resolved (6) Leukocytosis Is this a current diagnosis for this admission?: YesSummary: Improving. Likely reactive to fecal impaction and acute pain (7) Fibroid uterus Is this a current diagnosis for this admission?: YesSummary: The patient has a large fibroid in her uterus making this a high risk . She will follow up with [facility] next week. She has had 3 miscarriages in the past. - Additional Information Resuscitation Status: Full Code Discharge Diet: Regular Discharge Activity: Activity As Tolerated, Balance Activity w/Rest, Slowly Increase Activity Home Medications: Acetaminophen [Tylenol 325 mg Tablet] 650 mg PO Q6HP PRN tablet 01/15/17 Dicyclomine HCl [Bentyl 10 mg Capsule] 1 cap PO TID PRN #10 cap 01/15/17 Polyethylene Glycol 3350 [Miralax Powder 17 gm/Packet] 17 gm PO DAILY #1 bottle 01/15/17 Tramadol HCl 50 mg PO BIDP PRN #10 tablet 01/15/17 History of Present Illness History of Present Illness: MAR DUKE is a 26 year old female who presented to the emergency room with severe abdominal pain. Hospital Course Hospital Course: The patient is a 26-year-old -[place]ammar[place] female who is had 3 miscarriages in the past. She has large fibroid uterus and currently is 12 weeks . She presented to the emergency room with increasing abdominal pain. She had not had a bowel movement in the past 5 or 6 days and had developed nausea and vomiting. She had a renal ultrasound, abdominal ultrasound and OB ultrasound that were negative for anything acute. She did not have evidence of pyelonephritis. There was no urinary obstruction or evidence of stones. She was found to have evidence of a possible urinary tract infection and referred for admission. At the time of admission it was felt the patient was significantly constipated with fecal impaction and she was given lactulose, MiraLAX and had 2 soapsuds enemas, one mineral oil enema and her constipation was finally relieved with a smog enema. She was seen by [facility] who plans to follow her as an outpatient. This morning the patient's abdominal pain totally resolved but she was having intractable rectal pain. Her pain was so severe that she was unable to walk. She was given 1 dose of Bentyl and 1 tramadol with very good results. This afternoon the patient has been up ambulating in the halls. She is feeling much better and desires to go home. She will follow- up with [facility] next week. Physical Exam Vital Signs: Temp Pulse Resp BP Pulse Ox 98.1 F 105 H 16 119/69 100 01/15/17 11:11 01/15/17 11:11 01/15/17 11:11 01/15/17 11:11 01/15/17 11:11 Intake & Output 01/14/17 01/15/17 01/16/17 06:59 06:59 06:59 Intake Total 950 Balance 950 Weight 85.5 kg General appearance: PRESENT: no acute distress, obese, well-developed, well- nourished Head exam: PRESENT: atraumatic, normocephalic Mouth exam: PRESENT: moist, tongue midline Respiratory exam: PRESENT: clear to auscultation rene. ABSENT: rales, rhonchi, wheezes Cardiovascular exam: PRESENT: RRR. ABSENT: diastolic murmur, rubs, systolic murmur GI/Abdominal exam: PRESENT: normal bowel sounds, soft. ABSENT: distended, guarding, mass, organolmegaly, rebound, tenderness Extremities exam: PRESENT: full ROM. ABSENT: calf tenderness, clubbing, pedal edema Neurological exam: PRESENT: alert, awake, oriented to person, oriented to place , oriented to time, oriented to situation, CN II-XII grossly intact. ABSENT: motor sensory deficit Psychiatric exam: PRESENT: appropriate affect, normal mood. ABSENT: homicidal ideation, suicidal ideation Skin exam: PRESENT: dry, intact, warm. ABSENT: cyanosis, rash Results Laboratory Results: 01/15/17 06:33 01/15/17 06:33 01/14/17 01/14/17 01/15/17 23:06 23:06 06:33 WBC 13.4 H 12.2 H RBC 3.84 3.86 Hgb 9.8 L 9.8 L Hct 29.5 L 29.6 L MCV 77 L 77 L MCH 25.6 L 25.5 L MCHC 33.4 33.2 RDW 14.7 H 14.8 H Plt Count 196 191 Seg Neutrophils % 82.6 H 81.0 H Lymphocytes % 10.4 L 12.2 L Monocytes % 6.4 6.2 Eosinophils % 0.3 0.2 Basophils % 0.3 0.4 Absolute Neutrophils 11.0 H 9.9 H Absolute Lymphocytes 1.4 1.5 Absolute Monocytes 0.8 0.8 Absolute Eosinophils 0.0 0.0 Absolute Basophils 0.0 0.0 Sodium 138.8 Potassium 4.1 Chloride 104 Carbon Dioxide 22 Anion Gap 13 BUN 6 L Creatinine 0.68 Est GFR ( Amer) > 60 Est GFR (Non-Af Amer) > 60 Glucose 109 Calcium 9.8 01/15/17 06:33 WBC RBC Hgb Hct MCV MCH MCHC RDW Plt Count Seg Neutrophils % Lymphocytes % Monocytes % Eosinophils % Basophils % Absolute Neutrophils Absolute Lymphocytes Absolute Monocytes Absolute Eosinophils Absolute Basophils Sodium 137.9 Potassium 4.0 Chloride 103 Carbon Dioxide 21 L Anion Gap 14 BUN 6 L Creatinine 0.59 Est GFR ( Amer) > 60 Est GFR (Non-Af Amer) > 60 Glucose 90 Calcium 9.7 Impressions: Obstetrics Ultrasound 01/14/17 00:20 IMPRESSION: LIVING INTRAUTERINE , at-risk due to a fibroid uterus including large lower uterine/cervical fibroids measuring 10 cm and 4.3 cm. EGA 12w 4d Trimester of : First - 0 to 13 weeks. Abdomen Ultrasound 01/14/17 00:21 IMPRESSION: As above. Renal Ultrasound 01/14/17 03:44 IMPRESSION: No acute or suspicious findings of the renal system.Known gravid uterus and fibroid uterus reported separately on Ob pelvic ultrasound from the same day. Qualifiers PATEINT BEING DISCHARGED WITH ANY OF THE FOLLOWING DIAGNOSIS?: No Plan Discharge Plan: Follow up with [facility] next week Time Spent: Greater than 30 Minutes
[2017-01-15 16:30] VITALS: BP 111/67
== END 2017-01-15 21:32 | disposition home or self-care (01) | DRG 781 ==
LOC: ER 21:29 → EH 01-14 05:46 → UNDOADMIN 01-14 05:57 → EH 01-14 05:57 → 2N 01-14 07:08 → UNDODISIN 01-15 21:28
PROVIDERS: ADMIT Internal Medicine; ATTEND Internal Medicine
PROC: 3E0F73Z Introduction of Anti-inflammatory into Respiratory Tract, Via Natural or Artificial Opening (ICD-10-PCS; principal; 2017-01-14)
DX: O23.41 Unspecified infection of urinary tract in pregnancy, first trimester (principal); O26.891 Other specified pregnancy related conditions, first trimester; K56.41 Fecal impaction; Z3A.12 12 weeks gestation of pregnancy; O34.11 Maternal care for benign tumor of corpus uteri, first trimester; D25.9 Leiomyoma of uterus, unspecified; Z83.3 Family history of diabetes mellitus; Z80.9 Family history of malignant neoplasm, unspecified; Z82.49 Family history of ischemic heart disease and other diseases of the circulatory system
CPT/HCPCS: 36415; 76705; 76770; 76801; 80048; 80053; 81001; 83690; 84702; 85025; 87086; 93976; J0696; J1200; J1644; J2270; J2405; J3490; J7030

== ENCOUNTER 2017-03-05 10:56 | Emergency (ER) | payer OTHER, MEDICAID ==
[2017-03-05] MEDS ORDERED: ACETAMINOPHEN 325 MG TABLET PO ONE (11:38)
--- NOTE | 2017-03-05 11:39 | ER Document Report ---
ED Medical Screen (RME) - General Chief Complaint: OB Problem (<20wks) Stated Complaint: VAGINAL PRESSURE Time Seen by Provider: 03/05/17 11:34 Mode of Arrival: Ambulatory Information source: Patient TRAVEL OUTSIDE OF THE [place] IN LAST 30 DAYS: No - HPI Patient complains to provider of: Abdominal pain Onset: This morning Onset/Duration: Sudden Quality of pain: Achy, Sharp Severity: Moderate Pain Level: 3 Associated Symptoms: Nausea Notes: 03/05/17 11:38 Patient is a 26-year-old female who is at 3 prior miscarriages who is currently 19 weeks , presenting to the emergency room complaining of right-sided abdominal/pelvic pain which radiates into her back that started early this morning, she reports associated nausea, and white vaginal discharge, she denies any bleeding, no dysuria or hematuria, had a normal bowel movement earlier today without blood, pain started shortly after her bowel movement - Related Data Allergies/Adverse Reactions: No Known Allergies Allergy (Verified 03/05/17 11:00) Past Medical History - General Last Menstrual Period: 10/21/2016 - Social History Chew tobacco use (# tins/day): No Frequency of alcohol use: None Drug Abuse: None Renal/ Medical History: Reports: Hx Ovarian Cysts, Hx Pelvic Inflammatory Disease. Denies: Hx Peritoneal Dialysis Psychiatric Medical History: Reports: Hx Depression Surgical Hx: Negative - Immunizations Immunizations up to date: No Hx Diphtheria, Pertussis, Tetanus Vaccination: Yes Physical Exam - Vital signs Vitals: Temp Pulse Resp BP Pulse Ox 98.2 F 95 20 115/77 98 03/05/17 11:00 03/05/17 11:03/05/17 11:03/05/17 11:03/05/17 11:00 Course - Vital Signs Vital signs: Temp Pulse Resp BP Pulse Ox 98.2 F 95 20 115/77 98 03/05/17 11:00 03/05/17 11:00 03/05/17 11:03/05/17 11:00 03/05/17 11:00
[2017-03-05 11:57] LABS: ABSOLUTE EOSINOPHILS # (AUTO) 0.1 10^3/uL (0.0-0.6); ABSOLUTE LYMPHOCYTES (AUTO) 1.6 10^3/uL (0.5-4.7); ABSOLUTE MONOCYTES (AUTO) 0.4 10^3/uL (0.1-1.4); ABSOLUTE NEUT (AUTO) 9.5 10^3/uL (1.7-8.2); BASOPHILS % (AUTO) 0.3 % (0-2); EOSINOPHILS % (AUTO) 0.5 % (0-6); HEMATOCRIT 33.3 % (36.0-47.0); HEMOGLOBIN 10.5 g/dL (12.0-15.5); HGB HCT DIFFERENCE -1.8; LYMPHOCYTES % (AUTO) 13.5 % (13-45); MEAN CORPUSCULAR HEMOGLOBIN 24.8 pg (27.0-33.4); MEAN CORPUSCULAR HGB CONC 31.4 g/dL (32.0-36.0); MEAN CORPUSCULAR VOLUME 79 fl (80-97); MONOCYTES % (AUTO) 3.9 % (3-13); RED BLOOD COUNT 4.22 10^6/uL (3.72-5.28); RED CELL DISTRIBUTION WIDTH 16.6 % (11.5-14.0); SEGMENTED NEUTROPHILS % (AUTO) 81.8 % (42-78); WHITE BLOOD COUNT 11.6 10^3/uL (4.0-10.5)
[2017-03-05 12:13] LABS: ALANINE AMINOTRANSFERASE 21 U/L (9-52); ALBUMIN 4.2 g/dL (3.5-5.0); ALKALINE PHOSPHATASE 54 U/L (38-126); ANION GAP 13 (5-19); ASPARTATE AMINO TRANSFERASE 13 U/L (14-36); BILIRUBIN,DIRECT 0.3 mg/dL (0.0-0.4); BILIRUBIN,TOTAL 0.6 mg/dL (0.2-1.3); BLOOD UREA NITROGEN 7 mg/dL (7-20); CALCIUM 9.9 mg/dL (8.4-10.2); CARBON DIOXIDE 21 mmol/L (22-30); CHLORIDE 105 mmol/L (98-107); CREATININE RESULT 0.67 mg/dL (0.52-1.25); GLUCOSE 77 mg/dL (75-110); LIPASE 150.3 U/L (23-300); POTASSIUM 4.3 mmol/L (3.6-5.0); SODIUM 138.5 mmol/L (137-145); TOTAL PROTEIN 7.7 g/dL (6.3-8.2)
[2017-03-05 13:22] LABS: APPEARANCE,URINE CLOUDY; BILIRUBIN,URINE NEGATIVE (NEGATIVE); GLUCOSE, URINE NEGATIVE (NEGATIVE); KETONES,URINE 80 mg/dL (NEGATIVE); LEUKOCYTE ESTERASE,URINE LARGE (NEGATIVE); NITRITE,URINE NEGATIVE (NEGATIVE); PROTEIN,URINE 30 mg/dL (NEGATIVE); URINE SPECIFIC GRAVITY 1.023; UROBILINOGEN,URINE NEGATIVE mg/dL (<2.0)
[2017-03-05] MEDS ORDERED: CEPHALEXIN 500 MG CAPSULE PO ONE (13:41)
--- NOTE | 2017-03-05 13:54 | ER Document Report ---
ED GI/ - General Chief Complaint: OB Problem (<20wks) Stated Complaint: VAGINAL PRESSURE Time Seen by Provider: 03/05/17 11:34 Mode of Arrival: Ambulatory Information source: Patient Notes: 26-year-old female 20 weeks complaining of right low abdominal pain since this morning after BM. Started in right flank and was associated with nausea, caused her to drop to the floor. No it is intermittent in the RLQ worse with movement. No history of abdominal surgery or kidney stone. No fever or chills. TRAVEL OUTSIDE OF THE [place] IN LAST 30 DAYS: No - Related Data Allergies/Adverse Reactions: No Known Allergies Allergy (Verified 03/05/17 11:00) Past Medical History - General Information source: Patient Last Menstrual Period: 10/21/2016 - Social History Smoking Status: Never Smoker Chew tobacco use (# tins/day): No Frequency of alcohol use: None Drug Abuse: None Family History: DM, Hypertension, Malignancy Patient has suicidal ideation: No Patient has homicidal ideation: No Renal/ Medical History: Reports: Hx Ovarian Cysts, Hx Pelvic Inflammatory Disease. Denies: Hx Peritoneal Dialysis Psychiatric Medical History: Reports: Hx Depression Surgical Hx: Negative - Immunizations Immunizations up to date: No Hx Diphtheria, Pertussis, Tetanus Vaccination: Yes Review of Systems - Review of Systems Constitutional: No symptoms reported EENT: No symptoms reported Cardiovascular: No symptoms reported Respiratory: No symptoms reported Gastrointestinal: See HPI Genitourinary: No symptoms reported Female Genitourinary: No symptoms reported Musculoskeletal: No symptoms reported Skin: No symptoms reported Hematologic/Lymphatic: No symptoms reported Neurological/Psychological: No symptoms reported Physical Exam - Vital signs Vitals: Temp Pulse Resp BP Pulse Ox 98.2 F 95 20 115/77 98 03/05/17 11:00 03/05/17 11:00 03/05/17 11:00 03/05/17 11:00 03/05/17 11:00 Interpretation: Normal - General General appearance: Appears well, Alert - HEENT Head: Normocephalic, Atraumatic Eyes: Normal Pupils: PERRL Neck: Supple - Respiratory Respiratory status: No respiratory distress Chest status: Nontender Breath sounds: Normal Chest palpation: Normal - Cardiovascular Rhythm: Regular Heart sounds: Normal auscultation Murmur: No - Abdominal Inspection: Normal Distension: No distension Bowel sounds: Normal Tenderness: Tender - rlq lateral and inferior to the uterus Organomegaly: Other - gravid uterus - Back Back: Normal, Nontender. No: CVA tenderness - Extremities General upper extremity: Normal inspection, Nontender, Normal color, Normal ROM , Normal temperature General lower extremity: Normal inspection, Nontender, Normal color, Normal ROM , Normal temperature, Normal weight bearing. No: Elizabeth's sign - Neurological Neuro grossly intact: Yes Cognition: Normal Orientation: AAOx4 [place] Coma Scale Eye Opening: Spontaneous [place] Coma Scale Verbal: Oriented [place] Coma Scale Motor: Obeys Commands [place] Coma Scale Total: 15 Speech: Normal Motor strength normal: LUE, RUE, LLE, RLE Sensory: Normal - Psychological Associated symptoms: Normal affect, Normal mood - Skin Skin Temperature: Warm Skin Moisture: Dry Skin Color: Normal Course - Re-evaluation Re-evalutation: 03/05/17 13:42 U/A shows 14 WBCs and 1+ bacteria I will treat her for urinary tract infection. urine culture is pending 03/05/17 17:11 ultrasounds OK, no hydro, appendix not seen. wbc 11.6 81% neutrophils. pain very minimal after the tylenol "kicked in" 03/05/17 17:[address] Luna who is on-call for [facility]. She recommends that the patient strain her urine and if she has any gravel that comes out she can put it in a specimen cup which I will give to her. She also said to advise the patient about appendix. - Vital Signs Vital signs: Temp Pulse Resp BP Pulse Ox 98.2 F 81 16 121/88 H 100 03/05/17 17:49 03/05/17 17:49 03/05/17 17:49 03/05/17 17:49 03/05/17 17:49 - Laboratory Result Diagrams: 03/05/17 11:40 03/05/17 11:40 Laboratory results interpreted by me: 03/05/17 03/05/17 03/05/17 11:40 11:40 12:38 WBC 11.6 H Hgb 10.5 L Hct 33.3 L MCV 79 L MCH 24.8 L MCHC 31.4 L RDW 16.6 H Seg Neutrophils % 81.8 H Absolute Neutrophils 9.5 H Carbon Dioxide 21 L AST 13 L Urine Protein 30 H Urine Ketones 80 H Ur Leukocyte Esterase LARGE H Discharge - Discharge Clinical Impression: RLQ abdominal pain, viable 20 week with fibroids Condition: Good Disposition: HOME, SELF-CARE Instructions: Abdominal Pain ([facility]), Observation for Appendicitis ([facility]), Urinary Tract Infection ([facility]), Cephalexin ([facility]) Additional Instructions: warm compress to er if worse pain, vaginal bleeding, fever, vomiting strain your urine and collect into speciman cup if you get any gravel of stones in urine Please complete the patient satisfaction survey if you get one, and return it.. If you do not receive a survey, then you can go to the [facility] website, [email or web address] and place your comments about your very good care. Thank you very much. It was a pleasure being your medical provider today. Prescriptions: Cephalexin Monohydrate [Keflex 500 mg Capsule] 500 mg PO QID #28 capsule Forms: Parent Work Note Referrals: CLARK LEÓN MD [Primary Care Provider] - 03/08/17
--- NOTE | 2017-03-05 16:40 | RADIOLOGY REPORT (SQ) ---
EXAM DESCRIPTION: U/S OB LIMITED COMPLETED DATE/TIME: 03/05/2017 4:12 pm REASON FOR STUDY: right lower quadrant tender, 20 week COMPARISON: 11/20/2016 TECHNIQUE: Limited transabdominal grayscale ultrasound for evaluation of specific requested obstetri arelis parameters. LIMITATIONS: None. FINDINGS: IGNACIA: 6.9 cm. FHR: 155 beats per minute. PRESENTATION: Transverse OTHER: The previously described uterine fibroids are again identified. An anterior and fundal placen ta is identified. IMPRESSION: LIMITED OBSTETRICAL ULTRASOUND WITH MEASURED PARAMETERS DELINEATED ABOVE. Trimester of : Second trimester - 13 weeks 1 day to 27 weeks 6 days. TECHNICAL DOCUMENTATION: JOB ID: [id number] [employer]- All Rights Reserved
--- NOTE | 2017-03-05 16:46 | RADIOLOGY REPORT (SQ) ---
EXAM DESCRIPTION: U/S ABDOMEN COMPLETE W/O DOP COMPLETED DATE/TIME: 03/05/2017 4:17 pm REASON FOR STUDY: right lower quadrant tender, 20 week COMPARISON: 01/14/2017 TECHNIQUE: Dynamic and static grayscale images acquired of the abdomen and recorded on PACS. Juan Danielo sally selected color Doppler and spectral images recorded. LIMITATIONS: None. FINDINGS: PANCREAS: No masses in the head of the pancreas. The body and tail were obscured by gas. LIVER: 13.4 cm. Normal echotexture. LIVER VASCULATURE: Normal directional flow of the main portal vein and hepatic veins. GALLBLADDER: No stones. Normal wall thickness. No pericholecystic fluid. ULTRASOUND-DETECTED AGEE'S SIGN: Negative. INTRAHEPATIC DUCTS AND COMMON DUCT: Common bile duct is normal at 3 mm. INFERIOR VENA CAVA: Normal flow. AORTA: No aneurysm. RIGHT KIDNEY: Normal size, 11.2 cm. Normal echogenicity. No solid or suspicious masses. No hyd ronephrosis. No calcifications. LEFT KIDNEY: Normal size, 10.9 cm. Normal echogenicity. No solid or suspicious masses. No hydr onephrosis. No calcifications. SPLEEN: Normal size, 11.4 cm. No masses. PERITONEAL AND PLEURAL SPACES: No ascites or effusions. OTHER: No other significant finding. IMPRESSION: NORMAL ABDOMINAL ULTRASOUND. TECHNICAL DOCUMENTATION: JOB ID: [id number] [employer]- All Rights Reserved
[2017-03-05 17:50] VITALS: BP 121/88
== END 2017-03-05 17:50 | disposition home or self-care (01) ==
LOC: ER 10:56
DX: O34.12 Maternal care for benign tumor of corpus uteri, second trimester (principal); D25.9 Leiomyoma of uterus, unspecified; O26.92 Pregnancy related conditions, unspecified, second trimester; R11.0 Nausea; R10.2 Pelvic and perineal pain; Z3A.19 19 weeks gestation of pregnancy
CPT/HCPCS: 36415; 76700; 76815; 80053; 81001; 83690; 85025; 87086; 99284

== ENCOUNTER 2017-06-13 11:54 | Outpatient (CLI) | payer OTHER, MEDICAID ==
[2017-06-13 12:34] LABS: APPEARANCE,URINE CLOUDY; BILIRUBIN,URINE NEGATIVE (NEGATIVE); GLUCOSE, URINE NEGATIVE (NEGATIVE); KETONES,URINE 80 mg/dL (NEGATIVE); LEUKOCYTE ESTERASE,URINE LARGE (NEGATIVE); NITRITE,URINE NEGATIVE (NEGATIVE); PROTEIN,URINE 30 mg/dL (NEGATIVE); URINE SPECIFIC GRAVITY 1.015; UROBILINOGEN,URINE NEGATIVE mg/dL (<2.0)
[2017-06-13 12:55] LABS: URINE BARBITURATES SCREEN NEGATIVE; URINE METHADONE SCREEN NEGATIVE; URINE OPIATES LOW NEGATIVE; URINE PHENCYCLIDINE SCREEN NEGATIVE
[2017-06-13] MEDS ORDERED: DEXTROSE 5%-LACTATED RINGERS 1,000 ML IV PRN (13:28)
[2017-06-13 13:45] LABS: ABSOLUTE LYMPHOCYTES (AUTO) 1.4 10^3/uL (0.5-4.7); ABSOLUTE MONOCYTES (AUTO) 0.7 10^3/uL (0.1-1.4); ABSOLUTE NEUT (AUTO) 11.2 10^3/uL (1.7-8.2); BASOPHILS % (AUTO) 0.2 % (0-2); EOSINOPHILS % (AUTO) 0.3 % (0-6); HEMATOCRIT 27.4 % (36.0-47.0); HEMOGLOBIN 8.9 g/dL (12.0-15.5); HGB HCT DIFFERENCE -0.7; LYMPHOCYTES % (AUTO) 10.3 % (13-45); MEAN CORPUSCULAR HEMOGLOBIN 24.1 pg (27.0-33.4); MEAN CORPUSCULAR HGB CONC 32.7 g/dL (32.0-36.0); MEAN CORPUSCULAR VOLUME 74 fl (80-97); MONOCYTES % (AUTO) 5.1 % (3-13); RED CELL DISTRIBUTION WIDTH 15.3 % (11.5-14.0); SEGMENTED NEUTROPHILS % (AUTO) 84.1 % (42-78); WHITE BLOOD COUNT 13.4 10^3/uL (4.0-10.5)
[2017-06-13 14:00] LABS: ALANINE AMINOTRANSFERASE 15 U/L (9-52); ALBUMIN 3.6 g/dL (3.5-5.0); ALKALINE PHOSPHATASE 96 U/L (38-126); AMYLASE 111 U/L (30-110); ANION GAP 10 (5-19); ASPARTATE AMINO TRANSFERASE 11 U/L (14-36); BILIRUBIN,DIRECT 0.4 mg/dL (0.0-0.4); BILIRUBIN,TOTAL 0.6 mg/dL (0.2-1.3); BLOOD UREA NITROGEN 5 mg/dL (7-20); CALCIUM 9.7 mg/dL (8.4-10.2); CARBON DIOXIDE 22 mmol/L (22-30); CHLORIDE 106 mmol/L (98-107); CREATININE RESULT 0.53 mg/dL (0.52-1.25); GLUCOSE 90 mg/dL (75-110); LIPASE 182.7 U/L (23-300); POTASSIUM 3.6 mmol/L (3.6-5.0); SODIUM 138.3 mmol/L (137-145); TOTAL PROTEIN 6.8 g/dL (6.3-8.2)
--- NOTE | 2017-06-13 14:29 | RADIOLOGY REPORT (SQ) ---
EXAM DESCRIPTION: U/S ABDOMEN LIMITED W/O DOP COMPLETED DATE/TIME: 06/13/2017 1:49 pm REASON FOR STUDY: RLQ PAIN, appendix COMPARISON: None TECHNIQUE: Static and real time ibarra scale imaging performed of the right lower quadrant with additi onal compression maneuvers. LIMITATIONS: None. FINDINGS: APPENDIX: Not visualized. BOWEL: Active peristalsis with fluid in the bowel. COMPRESSION MANEUVERS: No rebound pain with compression. OTHER: No other significant finding. IMPRESSION: APPENDIX NOT IDENTIFIED. ACTIVE PERISTALSIS. TECHNICAL DOCUMENTATION: JOB ID: [id number] [employer]- All Rights Reserved
--- NOTE | 2017-06-13 14:32 | RADIOLOGY REPORT (SQ) ---
EXAM DESCRIPTION: U/S ABDOMEN LIMITED W/O DOP COMPLETED DATE/TIME: 06/13/2017 1:54 pm REASON FOR STUDY: RUQ pain, gallbladder COMPARISON: February 2017 TECHNIQUE: Dynamic and static grayscale images acquired of the abdomen and recorded on PACS. Additio nal selected color Doppler and spectral images recorded. LIMITATIONS: Study is limited due to overlying bowel gas. FINDINGS: PANCREAS: The pancreas could not be visualized due to overlying bowel gas. LIVER: No masses. Echotexture normal. LIVER VASCULATURE: Normal directional flow of the main portal vein and hepatic veins. GALLBLADDER: No gallstones are identified. There is increased echogenicity within the gallbladder aly men consistent with biliary sludge the. Normal wall thickness. No pericholecystic fluid. ULTRASOUND-DETECTED AGEE'S SIGN: Negative. INTRAHEPATIC DUCTS AND COMMON DUCT: CBD and intrahepatic ducts normal caliber. No filling defects. INFERIOR VENA CAVA: Normal flow. AORTA: No aneurysm. RIGHT KIDNEY: Normal size. Normal echogenicity. No solid or suspicious masses. No hydronephrosis. No calcifications. PERITONEAL AND RIGHT PLEURAL SPACE: No ascites or effusions. OTHER: No other significant findings. IMPRESSION: No gallstones are identified. Findings consistent with biliary sludge. Other findings as noted above TECHNICAL DOCUMENTATION: JOB ID: [id number] [employer]- All Rights Reserved
--- NOTE | 2017-06-13 14:33 | Non Stress Test Report ---
Non Stress Test Datetime Report Generated by CPN: 06/13/2017 14:33 DEMOGRAPHIC Test Number: 1 EGA NST: 33.4 INDICATION Indication for Study: Ordered by Provider MONITORING Monitor Explained: Monitor Explained; Test Explained; Patient Verbalized Understanding Time on Monitor: 06/13/2017 12:02 Time off Monitor: 06/13/2017 13:08 NST Duration: 66 NST INTERVENTIONS NST Interventions: None Physician Notified NST: Dr. Bib BABY A: [id number] BABY A Movement : Present Contraction Frequency : Irreg FHR Baseline : 135 Accelerations : 15X15 Decelerations : None Variability : Moderate 6-25bpm NST Review: Meets Criteria for Reactive NST NST Review and Verified By : Roscoe Mcneil RN NSCharity Results: Reactive NST REPORT Report Trigger: Send Report
[2017-06-13] MEDS ORDERED: CEFTRIAXONE 1 GM/D5W RTU 1 GM/50 ML RTUPB IV ONE ×2 (14:59→15:00)
[2017-06-13] MEDS ORDERED: HYDROXYZINE PAMOATE 50 MG CAPSULE ONE (15:38)
[2017-06-13] MEDS ORDERED: OXYCODONE-ACETAMINOPHEN 5-325 MG TABLET ONE (15:38)
[2017-06-13] MEDS ORDERED: HYDROXYZINE PAMOATE 50 MG CAPSULE PO ONE (16:00)
[2017-06-13] MEDS ORDERED: OXYCODONE-ACETAMINOPHEN 5-325 MG TABLET PO ONE (16:00)
== END 2017-06-13 17:17 | disposition home or self-care (01) ==
LOC: LC 11:54
PROVIDERS: ATTEND Specialist
PROC: 4A1HXCZ Monitoring of Products of Conception, Cardiac Rate, External Approach (ICD-10-PCS; principal; 2017-06-13)
DX: O26.893 Other specified pregnancy related conditions, third trimester (principal); O23.43 Unspecified infection of urinary tract in pregnancy, third trimester; R10.31 Right lower quadrant pain; Z3A.33 33 weeks gestation of pregnancy
CPT/HCPCS: 59025; 36415; 87086; 82150; 83690; 85025; 80053; 81001; 80307; 76705; J0696

== ENCOUNTER 2017-07-21 05:03 | Inpatient (IN) | payer OTHER, MEDICAID ==
[2017-07-20 11:54] LABS: ABSOLUTE LYMPHOCYTES (AUTO) 1.3 10^3/uL (0.5-4.7); ABSOLUTE MONOCYTES (AUTO) 0.5 10^3/uL (0.1-1.4); ABSOLUTE NEUT (AUTO) 7.7 10^3/uL (1.7-8.2); BASOPHILS % (AUTO) 0.2 % (0-2); EOSINOPHILS % (AUTO) 0.2 % (0-6); HEMATOCRIT 26.2 % (36.0-47.0); HEMOGLOBIN 8.3 g/dL (12.0-15.5); HGB HCT DIFFERENCE -1.3; LYMPHOCYTES % (AUTO) 13.8 % (13-45); MEAN CORPUSCULAR HEMOGLOBIN 22.5 pg (27.0-33.4); MEAN CORPUSCULAR HGB CONC 31.5 g/dL (32.0-36.0); MEAN CORPUSCULAR VOLUME 71 fl (80-97); MONOCYTES % (AUTO) 5.3 % (3-13); RED BLOOD COUNT 3.68 10^6/uL (3.72-5.28); RED CELL DISTRIBUTION WIDTH 16.2 % (11.5-14.0); SEGMENTED NEUTROPHILS % (AUTO) 80.5 % (42-78); WHITE BLOOD COUNT 9.6 10^3/uL (4.0-10.5)
[2017-07-20 11:56] LABS: APPEARANCE,URINE CLEAR; BILIRUBIN,URINE NEGATIVE (NEGATIVE); GLUCOSE, URINE NEGATIVE (NEGATIVE); KETONES,URINE NEGATIVE (NEGATIVE); LEUKOCYTE ESTERASE,URINE MODERATE (NEGATIVE); NITRITE,URINE NEGATIVE (NEGATIVE); PROTEIN,URINE NEGATIVE (NEGATIVE); URINE SPECIFIC GRAVITY 1.014; UROBILINOGEN,URINE NEGATIVE mg/dL (<2.0)
[2017-07-20 12:10] LABS: URINE BARBITURATES SCREEN NEGATIVE; URINE METHADONE SCREEN NEGATIVE; URINE OPIATES LOW NEGATIVE; URINE PHENCYCLIDINE SCREEN NEGATIVE
[~2017-07-21 05:03] MED LIST: CEFAZOLIN 1 GM/D5W RTU 1 GM/50 ML RTUPB IV PRN; RINGERS SOLUTION,LACTATED 1,000 ML IV PRN
[2017-07-21] MEDS: LACTATED RINGERS 1000 ML IV PRN ×2 (06:32→21:10)
[2017-07-21] MEDS ORDERED: MIDAZOLAM 2 MG/2 ML INJ ONE (07:38)
[2017-07-21] MEDS ORDERED: PROPOFOL INJ 200 MG/20 ML VIAL IV ONE (07:38)
[2017-07-21] MEDS ORDERED: OXYTOCIN 10 UNIT/ML VIAL ONE (07:38)
[2017-07-21] MEDS ORDERED: FENTANYL CITRATE INJ/PF 100 MCG/2 ML AMPUL ONE ×2 (07:38→10:22)
[2017-07-21] MEDS ORDERED: EPHEDRINE SULFATE INJ 50 MG/1 ML AMPULE ONE (07:38)
[2017-07-21] MEDS ORDERED: MORPHINE SULFATE 10 MG/ML INJ IV PRN (08:49)
[2017-07-21] MEDS ORDERED: MEPERIDINE HCL/PF INJ 25 MG/1 ML DISP.SYRIN IV PRN (08:49)
[2017-07-21] MEDS ORDERED: PROMETHAZINE HCL INJ 25 MG/1 ML VIAL IV PRN ×2 (08:49→10:05)
[2017-07-21] MEDS ORDERED: DIPHENHYDRAMINE HCL 50 MG/ML VIAL IV PRN (08:49)
[2017-07-21] MEDS ORDERED: ONDANSETRON HCL INJ/PF 4 MG/2 ML SDV IV PRN (08:49)
[2017-07-21] MEDS ORDERED: FENTANYL CITRATE INJ/PF 100 MCG/2 ML AMPUL IV PRN ×2 (08:49)
[2017-07-21] MEDS ORDERED: ONDANSETRON HCL INJ/PF 4 MG/2 ML SDV ONE (09:33)
[2017-07-21] MEDS ORDERED: KETOROLAC TROMETHAMINE INJ/PF 30 MG/1 ML SDV ONE (09:58)
[2017-07-21] MEDS ORDERED: ACETAMINOPHEN 100 ML IV ONE (09:58)
[2017-07-21] MEDS ORDERED: MORPHINE SULFATE 10 MG/ML INJ IM PRN (10:05)
[2017-07-21] MEDS ORDERED: ACETAMINOPHEN 100 ML IV PRN (10:05)
[2017-07-21] MEDS ORDERED: OXYTOCIN/NORMAL SALINE 20 UNIT/1,000 ML RTUINJ IV PRN (10:05)
[2017-07-21] MEDS ORDERED: ACETAMINOPHEN 325 MG TABLET PO PRN (10:05)
[2017-07-21] MEDS ORDERED: OXYCODONE-ACETAMINOPHEN 5-325 MG TABLET PO PRN ×2 (10:05)
[2017-07-21] MEDS ORDERED: DIPH/PERTUSS(ACELL)/TETANUS VAC/PF 0.5 ML SYR (>=10YO) IM PRN (10:05)
[2017-07-21] MEDS ORDERED: MEASLES,MUMPS&RUBELLA VACC/PF 0.5 ML VIAL SUBCUT PRN (10:05)
[2017-07-21] MEDS: FENTANYL CITRATE INJ/PF 100 MCG/2 ML AMPUL IV PRN ×2 (10:35→11:11)
--- NOTE | 2017-07-21 10:58 | OPERATIVE REPORT E ---
Operative Report NAME: MAR MURCIA : 1990 AGE: 26Y DATE OF SURGERY: 07/21/2017 ROOM: 225 PREOPERATIVE DIAGNOSIS: IUP AT 39 WEEKS, BREECH PRESENTATION, MULTIPLE FIBROID UTERUS. POSTOPERATIVE DIAGNOSIS: IUP AT 39 WEEKS, BREECH PRESENTATION, MULTIPLE FIBROID UTERUS. OPERATION: Low transverse hysterotomy section. SURGEON: CLARK LEÓN M.D. ANESTHESIA: Spinal by David Godoy M.D. FINDINGS: A male infant in double-footling breech presentation, 's of 8 and 9, weight 7 pounds 10 ounces. Multiple uterine fibroids, the largest being approximately 10 cm in the posterior lower uterine segment, another 8.5 cm in the anterior lower segment, as well as a 5.5 cm fibroid in the left anterior body of the uterus as well as in the left fundal, another 10 cm *------* of the left fundus, right fundus contained at least 2 fibroids that measured approximately 5 to 6 cm there, one most notably closest to the broad ligament, another one in the right anterior lower uterine segment as well, with multiple venous dilations noted in the anterior aspect of the uterus as well. COMPLICATIONS: None. ESTIMATED BLOOD LOSS: 600 mL. SPECIMENS REMOVED: None. PROCEDURE: The patient was taken to the operating room, prepared and draped in normal sterile fashion in supine position with a leftward tilt. Transverse skin incision was made with a scalpel and carried through to the underlying layer of fascia with the same scalpel. The fascia was excised in the midline and extended laterally with Fiore's. The fascia was then dissected from the rectus muscle sharply with Fiore's and the rectus muscle was divided. The preperitoneal cavity was then entered bluntly with surgeon finger fracture and a bladder blade was inserted. This allowed for palpation and some visualization of the uterus and number of fibroids that were present. We also noted immediately the enlarged venous dilations on the anterior aspect of the lower uterine segment. A site was selected for hysterotomy and this was nicked carefully with a scalpel and this was extended with finger fracture in an upward motion in order to avoid the venous dilations. The feet were palpated and grasped at the ankles of both feet and these were delivered without difficulty up to the level of the scapula where the arms were then swept using the Pinard maneuver and the maxilla was pressed to facilitate head flexion and delivery of the . A double nuchal was unwrapped from the neck at this time. The nose and mouth were suctioned with a suction bulb, the cord was clamped and cut, and the infant was handed off to waiting kennel technician. The cord blood was collected. The placenta was removed manually. I then proceeded with exteriorizing the uterus which I did in order to fully examine the uterus to determine if any myomectomy needed to be performed at this time, however, the fibroids were all extremely enlarged and most of them were encompassing the myometrium. I felt that at this time a myomectomy of any of these fibroids would not be safe as the patient was stable and there was no excessive bleeding. I did not want to further facilitate further bleeding by attempting a myomectomy at this time, therefore, the hysterotomy was closed in a running locked fashion with 0 Monocryl. A second layer of the same suture was used in an imbricating fashion to ensure hemostasis. The uterus was then carefully returned to the abdomen. The peritoneal cavity was cleared of clots and debris. The hysterotomy was reinspected and found to be hemostatic and the peritoneal cavity was watched for hemostasis as well and found to be so. The rectus muscles and peritoneum was then reapproximated with two stitches of 2-0 chromic using a mattress technique. The fascia was closed with 0 Vicryl. The subcutaneous layer was closed with plain catgut, and the skin was closed with 4-0 Vicryl. The patient tolerated the procedure well. Sponge, lap, and needle counts were correct x2, and the patient was taken to recovery in stable condition. DICTATING PHYSICIAN: CLARK LEÓN M.D. [id number] PHY#: [id number] ID: [id number] JOB#: [id number] ACCT: [id number] cc:CLARK LEÓN M.D. >
[2017-07-21] MEDS ORDERED: SIMETHICONE 80 MG TAB.CHEW ONE (11:23)
[2017-07-21] MEDS ORDERED: HYDROMORPHONE HCL 30 MG/60 ML RTUINJ IV PRN (14:15)
[2017-07-21] MEDS: KETOROLAC TROMETHAMINE INJ/PF 30 MG/1 ML SDV IV SCH ×2 (14:45→21:10)
[2017-07-21] MEDS: DOCUSATE SODIUM 100 MG CAPSULE PO SCH (18:14)
[2017-07-21] MEDS ORDERED: RINGERS SOLUTION,LACTATED 500 ML IV ONE (20:30)
[2017-07-22] MEDS: KETOROLAC TROMETHAMINE INJ/PF 30 MG/1 ML SDV IV SCH (06:03)
[2017-07-22 07:50] LABS: HEMATOCRIT 20.2 % (36.0-47.0); HGB HCT DIFFERENCE -0.4; MEAN CORPUSCULAR HEMOGLOBIN 23.2 pg (27.0-33.4); MEAN CORPUSCULAR HGB CONC 32.5 g/dL (32.0-36.0); MEAN CORPUSCULAR VOLUME 71 fl (80-97); RED BLOOD COUNT 2.83 10^6/uL (3.72-5.28); RED CELL DISTRIBUTION WIDTH 16.3 % (11.5-14.0); WHITE BLOOD COUNT 8.4 10^3/uL (4.0-10.5)
[2017-07-22 07:57] LABS: HEMOGLOBIN 6.6 g/dL (12.0-15.5)
--- NOTE | 2017-07-22 09:55 | PDOC PROGRESS REPORT ---
Subjective-OB Subjective: Post Delivery Day: 26 year old. Denies any needs at this time Doing well, pain from fibroids under control, bleeding moderate, voiding, OOB without issues, feels tired Physical Exam (OB) Vital Signs: Temp Pulse Resp BP Pulse Ox 98.7 F 89 15 141/83 H 98 07/22/17 08:42 07/22/17 08:42 07/22/17 08:42 07/22/17 08:42 07/22/17 08:42 Intake & Output 07/21/17 07/22/17 07/23/17 06:59 06:59 06:59 Intake Total 1550 Output Total 1250 650 Balance 300 -650 Weight 81.6 kg - PIH/Pre-Eclampsia Clonus: Negative - Dressing Removed: No Incision: Dressing, Well Approximated Closure Type: Sutures - Lochia Lochia Amount: Scant < 10 ml Lochia Color: Rubra/Red - Abdomen Description: Tender, Soft, Round Hernia Present: No Fundal Description: Firm, Midline, Non-Midline Describe if Not Midline: slightly to left Fundal Height: u/u - u/2 Objective-Diagnostic Laboratory: 07/22/17 07:04 07/22/17 07:04 WBC 8.4 RBC 2.83 L Hgb 6.6 L Hct 20.2 L MCV 71 L MCH 23.2 L MCHC 32.5 RDW 16.3 H Plt Count 136 L Assessment and Plan(PN) - Assessment and Plan (1) Anemia affecting Qualifiers: Trimester: unspecified trimester Qualified Code(s): O99.019 - Anemia complicating , unspecified trimester Is this a current diagnosis for this admission?: Yes (2) Delivery by section of full-term infant Is this a current diagnosis for this admission?: Yes (3) Fibroid uterus Qualifiers: Uterine leiomyoma location: unspecified location Qualified Code(s): D25.9 - Leiomyoma of uterus, unspecified Is this a current diagnosis for this admission?: Yes - Time Spent with Patient Time with patient: Less than 15 minutes Medications reviewed and adjusted accordingly: Yes - Disposition Anticipated Discharge: Home Within: within 24 hours - stop OPCA pump, Dilaudid po or IV
[2017-07-22] MEDS: DOCUSATE SODIUM 100 MG CAPSULE PO SCH ×2 (10:27→18:21)
[2017-07-22] MEDS: PRENATAL VITAMIN W-O CA NO5/FE FUMARATE/FA CAPSULE PO SCH (10:37)
[2017-07-22] MEDS: HYDROMORPHONE HCL 2 MG TABLET PO PRN ×3 (12:28→22:41)
[2017-07-22] MEDS: SIMETHICONE 80 MG TAB.CHEW PO PRN ×2 (14:00→22:08)
[2017-07-22] MEDS: IBUPROFEN 800 MG TABLET PO SCH ×2 (14:01→21:52)
[2017-07-23] MEDS ORDERED: ZOLPIDEM TARTRATE 5 MG TABLET ONE (00:43)
[2017-07-23] MEDS: IBUPROFEN 800 MG TABLET PO SCH ×4 (03:50→20:42)
[2017-07-23] MEDS: HYDROMORPHONE HCL 2 MG TABLET PO PRN ×4 (06:30→23:40)
[2017-07-23] MEDS: DOCUSATE SODIUM 100 MG CAPSULE PO SCH ×2 (09:54→17:27)
[2017-07-23] MEDS: PRENATAL VITAMIN W-O CA NO5/FE FUMARATE/FA CAPSULE PO SCH (09:55)
[2017-07-23] MEDS ORDERED: FERROUS SULFATE 325 MG TABLET PO ONE (11:15)
[2017-07-23] MEDS ORDERED: ASCORBIC ACID 500 MG TABLET PO ONE (11:15)
--- NOTE | 2017-07-23 13:35 | PDOC PROGRESS REPORT ---
Subjective-OB Subjective: Post Delivery Day:#2 reports light bleeding, , tolerating diet, voiding without difficulty. not passing gas, not using BARGEMAN. reports upper back pain. Physical Exam (OB) Vital Signs: Temp Pulse Resp BP Pulse Ox 98.5 F 113 H 16 120/89 H 99 07/23/17 11:30 07/23/17 11:30 07/23/17 11:30 07/23/17 11:30 07/23/17 11:30 Intake & Output 07/22/17 07/23/17 07/24/17 06:59 06:59 06:59 Intake Total 1550 375 240 Output Total 1250 650 Balance 300 -275 240 - Dressing Removed: No Incision: Dressing - dressing intact - Abdomen Description: Soft, Round Fundal Description: Firm, Midline Describe if Not Midline: slightly to left Fundal Height: u/u - u/2 - Extremities Lower extremities: Elizabeth's sign - neg Objective-Diagnostic Laboratory: 07/22/17 07:04 Assessment and Plan(PN) - Time Spent with Patient Medications reviewed and adjusted accordingly: Yes - Disposition Anticipated Discharge: Home
[2017-07-23] MEDS ORDERED: FERROUS SULFATE 325 MG TABLET PO SCH (18:00)
[2017-07-23] MEDS ORDERED: ASCORBIC ACID 500 MG TABLET PO SCH (18:00)
[2017-07-23] MEDS: FERROUS SULFATE 325 MG TABLET PO SCH (20:41)
[2017-07-23] MEDS: ASCORBIC ACID 500 MG TABLET PO SCH (20:41)
[2017-07-24] MEDS: IBUPROFEN 800 MG TABLET PO SCH ×4 (04:00→21:33)
[2017-07-24 06:14] LABS: ABSOLUTE EOSINOPHILS # (AUTO) 0.1 10^3/uL (0.0-0.6); ABSOLUTE LYMPHOCYTES (AUTO) 1.2 10^3/uL (0.5-4.7); ABSOLUTE MONOCYTES (AUTO) 0.4 10^3/uL (0.1-1.4); BASOPHILS % (AUTO) 0.3 % (0-2)
[2017-07-24 06:23] LABS: MEAN CORPUSCULAR VOLUME 72 fl (80-97)
[2017-07-24 06:24] LABS: EOSINOPHILS % (AUTO) 1.4 % (0-6); HEMATOCRIT 19.3 % (36.0-47.0); LYMPHOCYTES % (AUTO) 13.3 % (13-45); MEAN CORPUSCULAR HEMOGLOBIN 22.6 pg (27.0-33.4); MEAN CORPUSCULAR HGB CONC 31.6 g/dL (32.0-36.0); MONOCYTES % (AUTO) 4.7 % (3-13); RED CELL DISTRIBUTION WIDTH 16.6 % (11.5-14.0); SEGMENTED NEUTROPHILS % (AUTO) 80.3 % (42-78); WHITE BLOOD COUNT 8.7 10^3/uL (4.0-10.5)
[2017-07-24 06:26] LABS: HEMOGLOBIN 6.1 g/dL (12.0-15.5)
[2017-07-24] MEDS: HYDROMORPHONE HCL 2 MG TABLET PO PRN ×3 (07:19→18:05)
[2017-07-24] MEDS: DOCUSATE SODIUM 100 MG CAPSULE PO SCH ×2 (09:21→18:13)
[2017-07-24] MEDS: PRENATAL VITAMIN W-O CA NO5/FE FUMARATE/FA CAPSULE PO SCH (09:21)
--- NOTE | 2017-07-24 12:39 | PDOC PROGRESS REPORT ---
Subjective-OB Subjective: Post Delivery Day: 26 year old. Symptomatic with anemia-having headaches, SOB, dizziness and fatigue. c/w Dr Garaz, and much discussion about the R/B/A of blood tx with pt , she decided to go forward with blood transfusion today. reports eating, drinking, voiding, passing gas without difficulty. Physical Exam (OB) Vital Signs: Temp Pulse Resp BP Pulse Ox 98.6 F 101 H 18 147/97 H 99 07/24/17 08:43 07/24/17 08:43 07/24/17 08:43 07/24/17 08:43 07/24/17 08:43 Intake & Output 07/23/17 07/24/17 07/25/17 06:59 06:59 05:59 Intake Total 375 480 Output Total 650 Balance -275 480 - PIH/Pre-Eclampsia Headache: Present - intermittent Epigastric Pain: No Visual Changes: No - Dressing Removed: Yes - opsite Incision: Well Approximated - Abdomen Description: Tender, Soft, Round Hernia Present: No Fundal Description: Firm, Midline Describe if Not Midline: slightly to left Fundal Height: 1/u - 2/u > 4/u*- Describe: Pt refused fundal massage - Extremities Lower extremities: Elizabeth's sign - neg Objective-Diagnostic Laboratory: 07/24/17 05:44 07/24/17 05:44 WBC 8.7 RBC 2.70 L Hgb 6.1 L Hct 19.3 L MCV 72 L MCH 22.6 L MCHC 31.6 L RDW 16.6 H Plt Count 163 Seg Neutrophils % 80.3 H Lymphocytes % 13.3 Monocytes % 4.7 Eosinophils % 1.4 Basophils % 0.3 Absolute Neutrophils 7.0 Absolute Lymphocytes 1.2 Absolute Monocytes 0.4 Absolute Eosinophils 0.1 Absolute Basophils 0.0 Assessment and Plan(PN) - Time Spent with Patient Time with patient: 15-25 minutes Medications reviewed and adjusted accordingly: Yes - Disposition Anticipated Discharge: Home Within: within 48 hours
[2017-07-24] MEDS ORDERED: ACETAMINOPHEN 325 MG TABLET PO PRN (12:42)
[2017-07-24] MEDS ORDERED: NORMAL SALINE 250 ML IV PRN ×2 (12:42)
[2017-07-24] MEDS ORDERED: DIPHENHYDRAMINE HCL 25 MG CAPSULE PO PRN (12:42)
[2017-07-24] MEDS: FERROUS SULFATE 325 MG TABLET PO SCH ×2 (13:56→21:33)
[2017-07-24] MEDS: ASCORBIC ACID 500 MG TABLET PO SCH ×2 (13:56→21:32)
[2017-07-24] MEDS: SIMETHICONE 80 MG TAB.CHEW PO PRN (15:42)
[2017-07-24] MEDS ORDERED: LABETALOL HCL INJ 20 MG/4 ML DISP.SYRIN IV ONE (19:45)
[2017-07-24 20:39] LABS: ALANINE AMINOTRANSFERASE 32 U/L (9-52); ALBUMIN 3.1 g/dL (3.5-5.0); ALKALINE PHOSPHATASE 85 U/L (38-126); ANION GAP 10 (5-19); ASPARTATE AMINO TRANSFERASE 30 U/L (14-36); BILIRUBIN,DIRECT 0.4 mg/dL (0.0-0.4); BILIRUBIN,TOTAL 1.2 mg/dL (0.2-1.3); BLOOD UREA NITROGEN 10 mg/dL (7-20); CALCIUM 8.9 mg/dL (8.4-10.2); CARBON DIOXIDE 26 mmol/L (22-30); CHLORIDE 103 mmol/L (98-107); CREATININE RESULT 0.67 mg/dL (0.52-1.25); GLUCOSE 91 mg/dL (75-110); LDH 693 U/L (313-618); POTASSIUM 3.8 mmol/L (3.6-5.0); SODIUM 139.4 mmol/L (137-145); TOTAL PROTEIN 5.7 g/dL (6.3-8.2)
[2017-07-24] MEDS: LABETALOL HCL 200 MG TABLET PO SCH (21:34)
[2017-07-24 22:26] LABS: APPEARANCE,URINE CLEAR; BILIRUBIN,URINE NEGATIVE (NEGATIVE); GLUCOSE, URINE NEGATIVE (NEGATIVE); KETONES,URINE NEGATIVE (NEGATIVE); LEUKOCYTE ESTERASE,URINE TRACE (NEGATIVE); NITRITE,URINE NEGATIVE (NEGATIVE); PROTEIN,URINE 30 mg/dL (NEGATIVE); URINE SPECIFIC GRAVITY 1.013; UROBILINOGEN,URINE NEGATIVE mg/dL (<2.0)
[2017-07-24] MEDS: ZOLPIDEM TARTRATE 5 MG TABLET PO PRN (23:32)
[2017-07-25] MEDS: HYDROMORPHONE HCL 2 MG TABLET PO PRN ×3 (01:30→09:29)
[2017-07-25] MEDS: IBUPROFEN 800 MG TABLET PO SCH ×4 (03:53→20:57)
[2017-07-25] MEDS: LABETALOL HCL 200 MG TABLET PO SCH ×3 (06:49→22:50)
[2017-07-25 07:13] LABS: ABSOLUTE EOSINOPHILS # (AUTO) 0.1 10^3/uL (0.0-0.6); ABSOLUTE LYMPHOCYTES (AUTO) 1.2 10^3/uL (0.5-4.7); ABSOLUTE MONOCYTES (AUTO) 0.4 10^3/uL (0.1-1.4); ABSOLUTE NEUT (AUTO) 6.8 10^3/uL (1.7-8.2); BASOPHILS % (AUTO) 0.3 % (0-2); EOSINOPHILS % (AUTO) 1.6 % (0-6); HEMATOCRIT 26.5 % (36.0-47.0); HGB HCT DIFFERENCE -0.1; LYMPHOCYTES % (AUTO) 13.6 % (13-45); MEAN CORPUSCULAR HEMOGLOBIN 24.7 pg (27.0-33.4); MEAN CORPUSCULAR HGB CONC 33.1 g/dL (32.0-36.0); MEAN CORPUSCULAR VOLUME 75 fl (80-97); MONOCYTES % (AUTO) 4.9 % (3-13); RED BLOOD COUNT 3.55 10^6/uL (3.72-5.28); RED CELL DISTRIBUTION WIDTH 18.1 % (11.5-14.0); SEGMENTED NEUTROPHILS % (AUTO) 79.6 % (42-78); WHITE BLOOD COUNT 8.5 10^3/uL (4.0-10.5)
[2017-07-25 07:14] LABS: HEMOGLOBIN 8.8 g/dL (12.0-15.5)
[2017-07-25] MEDS: NIFEDIPINE 30 MG TAB.ER.24 PO SCH (09:28)
[2017-07-25] MEDS: DOCUSATE SODIUM 100 MG CAPSULE PO SCH ×2 (09:28→17:50)
[2017-07-25] MEDS: PRENATAL VITAMIN W-O CA NO5/FE FUMARATE/FA CAPSULE PO SCH (09:30)
[2017-07-25 09:56] LABS: ALANINE AMINOTRANSFERASE 36 U/L (9-52); ALBUMIN 3.4 g/dL (3.5-5.0); ALKALINE PHOSPHATASE 94 U/L (38-126); ANION GAP 11 (5-19); ASPARTATE AMINO TRANSFERASE 27 U/L (14-36); BILIRUBIN,DIRECT 0.3 mg/dL (0.0-0.4); BILIRUBIN,TOTAL 1.1 mg/dL (0.2-1.3); BLOOD UREA NITROGEN 8 mg/dL (7-20); CALCIUM 9.1 mg/dL (8.4-10.2); CARBON DIOXIDE 25 mmol/L (22-30); CHLORIDE 107 mmol/L (98-107); CREATININE RESULT 0.61 mg/dL (0.52-1.25); GLUCOSE 76 mg/dL (75-110); LDH 734 U/L (313-618); POTASSIUM 3.9 mmol/L (3.6-5.0); SODIUM 143.4 mmol/L (137-145); TOTAL PROTEIN 6.3 g/dL (6.3-8.2)
[2017-07-25] MEDS ORDERED: OXYCODONE-ACETAMINOPHEN 5-325 MG TABLET PO PRN (09:59)
--- NOTE | 2017-07-25 10:06 | Progress Note ---
Provider Note Provider Note: pt with worsening BPs despite starting labetolol 200mg at 0700, at 0945 Bp 174/ 103, pt denies MYERS/visual changes/RUQ pain. c/w Dr Mccartney, will start procardia 30mg XL po daily and obtain Pre-e labs. Dr mccartney states she will see pt. this infomation conveyed to pt who agrees with plan. pt is not moving much due to pain. encouraged to move and SCDs ordered while in bed.-late entry 0945 kodi alexander cnm
--- NOTE | 2017-07-25 11:11 | PDOC PROGRESS REPORT ---
Subjective Progress Note for:: 07/25/17 Subjective:: pt indicates feeling better except for abdominal and back pain since the c/ section. Denies PreE ROS. Had transfusion yesterday. Physical Exam - Physical Exam Vital Signs: Temp Pulse Resp BP Pulse Ox 98.2 F 97 18 152/96 H 99 07/25/17 03:56 07/25/17 03:56 07/25/17 03:56 07/25/17 03:56 07/25/17 03:56 Intake & Output 07/24/17 07/25/17 07/26/17 07:59 06:59 06:59 Intake Total Balance General appearance: PRESENT: no acute distress GI/Abdominal exam: PRESENT: soft, tenderness - c/w post operative period. incision c/d/intact Result Laboratory Results: 07/25/17 07:00 07/25/17 09:24 07/24/17 07/24/17 07/24/17 13:06 19:50 22:01 WBC RBC Hgb Hct MCV MCH MCHC RDW Plt Count Seg Neutrophils % Lymphocytes % Monocytes % Eosinophils % Basophils % Absolute Neutrophils Absolute Lymphocytes Absolute Monocytes Absolute Eosinophils Absolute Basophils Sodium 139.4 Potassium 3.8 Chloride 103 Carbon Dioxide 26 Anion Gap 10 BUN 10 Creatinine 0.67 Est GFR ( Amer) > 60 Est GFR (Non-Af Amer) > 60 Glucose 91 Uric Acid Calcium 8.9 Total Bilirubin 1.2 AST 30 ALT 32 Alkaline Phosphatase 85 Total Protein 5.7 L Albumin 3.1 L Urine Color YELLOW Urine Appearance CLEAR Urine pH 7.0 Ur Specific [place] 1.013 Urine Protein 30 H Urine Glucose (UA) NEGATIVE Urine Ketones NEGATIVE Urine Blood LARGE H Urine Nitrite NEGATIVE Ur Leukocyte Esterase TRACE H Urine WBC (Auto) 9 Urine RBC (Auto) 156 Blood Type O POSITIVE Antibody Screen NEGATIVE 07/25/17 07/25/17 07:00 09:24 WBC 8.5 RBC 3.55 L Hgb 8.8 L D Hct 26.5 L MCV 75 L MCH 24.7 L MCHC 33.1 RDW 18.1 H Plt Count 199 Seg Neutrophils % 79.6 H Lymphocytes % 13.6 Monocytes % 4.9 Eosinophils % 1.6 Basophils % 0.3 Absolute Neutrophils 6.8 Absolute Lymphocytes 1.2 Absolute Monocytes 0.4 Absolute Eosinophils 0.1 Absolute Basophils 0.0 Sodium 143.4 Potassium 3.9 Chloride 107 Carbon Dioxide 25 Anion Gap 11 BUN 8 Creatinine 0.61 Est GFR ( Amer) > 60 Est GFR (Non-Af Amer) > 60 Glucose 76 Uric Acid 5.0 Calcium 9.1 Total Bilirubin 1.1 AST 27 ALT 36 Alkaline Phosphatase 94 Total Protein 6.3 Albumin 3.4 L Urine Color Urine Appearance Urine pH Ur Specific [place] Urine Protein Urine Glucose (UA) Urine Ketones Urine Blood Urine Nitrite Ur Leukocyte Esterase Urine WBC (Auto) Urine RBC (Auto) Blood Type Antibody Screen Assessment & Plan - Diagnosis (1) hypertension Is this a current diagnosis for this admission?: Yes Plan: d/w patient regarding elevated BPs. will get labs and monitor bps. discussed the possibility of needing magnesium sulfate if indicative of PreE. voiced understanding - Inpatient Certification Based on my medical assessment, after consideration of the patient's comorbidities, presenting symptoms, or acuity I expect that the services needed warrant INPATIENT care.: Yes I certify that my determination is in accordance with my understanding of Medicare's requirements for reasonable and necessary INPATIENT services [42 CFR 412.3e].: Yes Medical Necessity: Need Close Monitoring Due to Risk of Patient Decompensation, Need for Pain Control
[2017-07-25] MEDS: OXYCODONE-ACETAMINOPHEN 5-325 MG TABLET PO PRN ×2 (12:25→17:52)
[2017-07-25] MEDS: FERROUS SULFATE 325 MG TABLET PO SCH ×2 (12:25→20:57)
[2017-07-25] MEDS: ASCORBIC ACID 500 MG TABLET PO SCH ×2 (12:25→20:57)
[2017-07-25 14:46] LABS: URINE CREATININE 202.2 mg/dL (16-327); URINE PROTEIN 45.9 mg/dL (<12)
[2017-07-26] MEDS: IBUPROFEN 800 MG TABLET PO SCH ×2 (02:20→09:30)
[2017-07-26] MEDS: ZOLPIDEM TARTRATE 5 MG TABLET PO PRN (02:28)
[2017-07-26] MEDS: LABETALOL HCL 200 MG TABLET PO SCH (06:07)
[2017-07-26 08:55] VITALS: BP 131/81
--- NOTE | 2017-07-26 09:15 | PDOC DISCHARGE SUMMARY ---
Final Diagnosis Discharge Date: 07/26/17 - Final Diagnosis (1) Gestational [-induced] hypertension without significant proteinuria , complicating childbirth Is this a current diagnosis for this admission?: Yes (2) Anemia affecting Is this a current diagnosis for this admission?: Yes (3) Delivery by section of full-term infant Is this a current diagnosis for this admission?: Yes (4) Fibroid uterus Is this a current diagnosis for this admission?: Yes Discharge Data - Discharge Medication Home Medications: Vit/Iron Fum/Folic AC [ Tablet] 1 tab PO DAILY 06/13/17 Ascorbic Acid [Vitamin C 500 mg Tablet] 500 mg PO BID@1300,2100 #60 tablet 07/26 Docusate Sodium [Colace 100 mg Capsule] 100 mg PO BID #60 capsule 07/26/17 Ferrous Sulfate [Feosol 325 mg Tablet] 325 mg PO BID@1300,2100 #60 tablet Ibuprofen [Motrin 800 mg Tablet] 800 mg PO Q8 #60 tablet 07/26/17 Labetalol HCl [Normodyne 200 mg Tablet] 200 mg PO Q8 #90 tablet 07/26/17 Nifedipine [Procardia XL 30 mg Tablet] 30 mg PO DAILY #30 tab.er.24 07/26/17 Oxycodone HCl/Acetaminophen [Percocet 5-325 mg Tablet] 2 tab PO Q4HP PRN #30 tablet 07/26/17 Gestational Age: 39 Reason(s) for Admission: Ceasarean Section-Primary, Group B Strep Positive Procedures: NST Intrapartum Procedure(s): : Low Cervical, Transverse - Data Baby 1 Male at 1 minute: 8 at 5 minutes: 9 Weight: 3.459 kg Home with Mother: Yes Complications: No - Diagnosis Test Laboratory: Temp Pulse Resp BP Pulse Ox 98.2 F 92 18 131/81 H 100 07/26/17 08:00 07/26/17 08:00 07/26/17 08:00 07/26/17 08:00 07/26/17 08:00 07/20/17 07/20/17 07/22/17 11:10 11:13 07:04 RBC 3.68 L 2.83 L Hgb 8.3 L 6.6 L Hct 26.2 L 20.2 L Urine Opiates Screen NEGATIVE 07/24/17 07/25/17 05:44 07:00 RBC 2.70 L 3.55 L Hgb 6.1 L 8.8 L D Hct 19.3 L 26.5 L Urine Opiates Screen - Discharge information/Instructions Discharge Activity: Activity As Tolerated, Balance Activity w/Rest, No Driving, No Lifting Over 10 Pounds, No Lifting/Push/Pulling, Pelvic Rest, No tub bath Discharge Diet: Regular Disposition: HOME, SELF-CARE Follow up with: [facility] in: 1, Weeks - incision and bp check, sent home on labetalol and procardia
[2017-07-26] MEDS: NIFEDIPINE 30 MG TAB.ER.24 PO SCH (09:30)
[2017-07-26] MEDS: DOCUSATE SODIUM 100 MG CAPSULE PO SCH (09:31)
[2017-07-26] MEDS: OXYCODONE-ACETAMINOPHEN 5-325 MG TABLET PO PRN (09:31)
[2017-07-26] MEDS: PRENATAL VITAMIN W-O CA NO5/FE FUMARATE/FA CAPSULE PO SCH (09:34)
[2017-07-26] MEDS: FERROUS SULFATE 325 MG TABLET PO SCH (12:50)
[2017-07-26] MEDS: ASCORBIC ACID 500 MG TABLET PO SCH (12:50)
--- NOTE | 2017-08-19 11:28 | PDOC DELIVERY SUMMARY ---
Delivery Summary - Maternal Hx : V Hx Para: 0 Hx Total # of Abortions (Sponateous & Elective): 3 REMI: 07/28/17 Gestational Age: 39 Risk Factors: Other - large uterine fibroids: see Op note for details Ruptured Membranes: AROM Time of Rupture: 08:33 Fluids: Clear - Delivery Presentation: Breech Heart Rate Monitoring: Done Pre-Operatively Support Person Present: Yes Location: OR : Scheduled, Primary Delivery of Placenta Date: 07/21/17 Delivery of Placenta Time: 08:36 - Medications Type of Anesthesia:: Spinal - Assess and Care Baby 1 Male Delivery of Date: 07/21/17 Delivery of Time: 08:34 at 1 minute: 8 at 5 minutes: 9 Preprinted Number On Band: [id number] Infant Skin to Skin: Yes Skin to Skin (Mins): 7 To Nursery At: 08:46 Mode of Transport: Bassinet Infant Delivery Weight: 3,385 Infant Delivery Length: 19.5 in - Delivery Personnel Sr Vice President: DR MALCOLM Hernández RN: CARYL MACIAS RN RN: MODESTO HOLT MD: CLARK LEÓN
--- NOTE | 2017-08-19 12:55 | DISCHARGE SUMMARY E ---
Discharge Summary NAME: MAR MURCIA : 1990 AGE: 26Y ADMITTED: 07/21/2017 DISCHARGED: 07/26/2017 ADDENDUM: This is in response to query in regards to the anemia diagnosis for this patient. I am classifying the anemia affecting as more of a chronic anemia, and we can also add the diagnosis of uteromegaly and a diagnosis multiple large leiomyoma. Again, this is an addendum to her discharge summary in regards to the diagnosis of anemia, and classifying that as more of a chronic anemia, due to her large leiomyoma. DICTATING PHYSICIAN: CLARK LEÓN M.D. [id number] PHY#: [id number] ID: [id number] JOB#: [id number] ACCT: [id number] cc:CLARK LEÓN M.D. > MTDD
== END 2017-07-26 13:15 | disposition home or self-care (01) | DRG 766 ==
LOC: EEVIPCON 05:03 → 2S 05:03
PROVIDERS: ADMIT Obstetrics & Gynecology; ATTEND Obstetrics & Gynecology
PROC: 4A1HXCZ Monitoring of Products of Conception, Cardiac Rate, External Approach (ICD-10-PCS; 2017-07-21)
PROC: 10D00Z1 Extraction of Products of Conception, Low, Open Approach (ICD-10-PCS; principal; 2017-07-21 07:45)
PROC: 30233N1 Transfusion of Nonautologous Red Blood Cells into Peripheral Vein, Percutaneous Approach (ICD-10-PCS; 2017-07-24)
PROC: 3E0234Z Introduction of Serum, Toxoid and Vaccine into Muscle, Percutaneous Approach (ICD-10-PCS; 2017-07-26)
DX: O32.8XX0 Maternal care for other malpresentation of fetus, not applicable or unspecified (principal); O69.81X0 Labor and delivery complicated by cord around neck, without compression, not applicable or unspecified; O13.4 Gestational [pregnancy-induced] hypertension without significant proteinuria, complicating childbirth; O34.13 Maternal care for benign tumor of corpus uteri, third trimester; O99.02 Anemia complicating childbirth; D64.9 Anemia, unspecified; O99.214 Obesity complicating childbirth; E66.9 Obesity, unspecified; O99.824 Streptococcus B carrier state complicating childbirth; D25.2 Subserosal leiomyoma of uterus; D25.0 Submucous leiomyoma of uterus; D25.1 Intramural leiomyoma of uterus; Z37.0 Single live birth; Z3A.39 39 weeks gestation of pregnancy; Z68.31 Body mass index [BMI] 31.0-31.9, adult; Z23 Encounter for immunization
CPT/HCPCS: 1961; 36415; 36430; 59025; 80053; 80307; 81001; 82570; 83615; 84156; 84550; 85025; 85027; 86850; 86900; 86901; 86920; 90715; 94799; J0131; J0690; J1170; J1885; J2250; J2270; J2405; J2590; J2704; J3010; J3490; J7120; P9016

== ENCOUNTER 2017-10-22 13:43 | Emergency (ER) | payer OTHER, MEDICAID ==
[2017-10-22] MEDS ORDERED: IBUPROFEN 800 MG TABLET PO ONE (14:03)
--- NOTE | 2017-10-22 14:17 | ER Document Report ---
ED General - General Chief Complaint: Headache Stated Complaint: HEADACHE Time Seen by Provider: 10/22/17 14:03 Notes: 26-year-old female patient to the emergency department complaining of right- sided patient is 3 months . States that she started a workout plan recently. Has been doing a lot of push-ups. Pain in the right side of the chest. Sometimes it shoots down her right arm. Denies any shortness of breath. Occasional headache. TRAVEL OUTSIDE OF THE [place] IN LAST 30 DAYS: No - HPI Onset: Yesterday Onset/Duration: Gradual, Worse Quality of pain: Achy, Sharp Severity: Moderate Pain Level: 2 Associated symptoms: None Exacerbated by: Movement - What is that vomit - Related Data Allergies/Adverse Reactions: No Known Allergies Allergy (Verified 10/22/17 13:44) Past Medical History - General Information source: Patient - Social History Smoking Status: Never Smoker Cigarette use (# per day): No Frequency of alcohol use: None Drug Abuse: None Lives with: Family, Spouse/Significant other Family History: DM, Hypertension, Malignancy Patient has suicidal ideation: No Patient has homicidal ideation: No - Past Medical History Cardiac Medical History: Reports: Hx Hypertension - gestational Renal/ Medical History: Denies: Hx Kidney Stones, Hx Ovarian Cysts, Hx Peritoneal Dialysis, Hx Pelvic Inflammatory Disease Malignancy Medical History: Denies: Hx Breast Cancer, Hx Cervical Cancer, Hx Ovarian Cancer GI Medical History: Denies: Hx Gastroesophageal Reflux Disease, Hx Hiatal Hernia , Hx Ulcer Psychiatric Medical History: Denies: Hx Depression Infectious Medical History: Denies: Hx HIV Past Surgical History: Reports: Hx Section - Immunizations Immunizations up to date: No Hx Diphtheria, Pertussis, Tetanus Vaccination: Yes Review of Systems - Review of Systems Constitutional: denies: Chills, Diaphoresis, Fever, Malaise, Weakness EENT: denies: Eye pain, Eye discharge, Blurred vision, Tearing, Throat pain, Difficulty swallowing, Throat swelling, Mouth swelling Cardiovascular: Chest pain, Palpitations, Heart racing. denies: Orthopnea, Dyspnea, Syncope, Dizziness, Lightheaded, Edema Respiratory: denies: Cough, Hurts to breathe, Short of breath, Wheezing Gastrointestinal: denies: Abdominal pain, Diarrhea, Nausea, Vomiting, Constipation - In the ER today Genitourinary: denies: Burning, Dysuria, Discharge, Frequency - this time a year do not think from now on I am going to take a vacation in a month Female Genitourinary: denies: , Vaginal bleeding, Vaginal odor, Painful intercourse - The Musculoskeletal: See HPI. denies: Back pain, Joint pain Skin: denies: Lesions, Rash Hematologic/Lymphatic: denies: Blood clots, Easy bleeding, Easy bruising Neurological/Psychological: Headaches. denies: Confusion, Lost consciousness, Numbness Physical Exam - Vital signs Vitals: Temp Pulse Resp BP Pulse Ox 98.9 F 105 H 16 143/97 H 95 10/22/17 13:50 10/22/17 13:50 10/22/17 13:50 10/22/17 13:50 10/22/17 13:50 Interpretation: Tachycardic - General General appearance: Appears well, Alert - HEENT Head: Normocephalic, Atraumatic Eyes: Normal Pupils: PERRL - Respiratory Respiratory status: No respiratory distress Chest status: Nontender Breath sounds: Normal Chest palpation: Normal - Cardiovascular Rhythm: Tachycardia Heart sounds: Normal auscultation Murmur: No Notes: Palpation of the anterior intercostal space on the right at the origin of the pectoralis muscles and at the sternum where the ribs meet also reproduces the pain symptoms that patient has complaining of. - Abdominal Inspection: Normal Distension: No distension Bowel sounds: Normal Tenderness: Nontender Organomegaly: No organomegaly - Back Back: Normal, Nontender - Extremities General upper extremity: Normal inspection, Nontender, Normal color, Normal ROM , Normal temperature General lower extremity: Normal inspection, Nontender, Normal color, Normal ROM , Normal temperature, Normal weight bearing. No: Elizabeth's sign - Neurological Neuro grossly intact: Yes Cognition: Normal Orientation: AAOx4 Vicky Coma Scale Eye Opening: Spontaneous [place] Coma Scale Verbal: Oriented Vicky Coma Scale Motor: Obeys Commands [place] Coma Scale Total: 15 Speech: Normal Motor strength normal: LUE, RUE, LLE, RLE Sensory: Normal - Psychological Associated symptoms: Normal affect, Normal mood - Skin Skin Temperature: Warm Skin Moisture: Dry Skin Color: Normal Course - Re-evaluation Re-evalutation: 10/22/17 14:54 We will get a chest x-ray and EKG. Will get some basic lab work on her at this time. Patient is approximately 3 months . Denies any leg pain but will add d-dimer as patient has tachycardia and she states that her heart has been racing a little bit with this chest pain. 10/22/17 15:33 D-dimer is elevated. Will proceed with CTA of the chest at this time. 10/22/17 16:46 No obvious pulmonary embolism but does show a right upper lobe infiltrate consistent with pneumonia. Will add QuantiFERON gold test for TB just to be safe. Will start on azithromycin at this time. Advise good close follow-up. - Vital Signs Vital signs: Temp Pulse Resp BP Pulse Ox 98.9 F 105 H 16 143/97 H 95 10/22/17 13:50 10/22/17 13:50 10/22/17 13:50 10/22/17 13:50 10/22/17 13:50 - Laboratory Result Diagrams: 10/22/17 14:30 10/22/17 14:30 Laboratory results interpreted by me: 10/22/17 10/22/17 10/22/17 14:30 14:30 14:30 Hgb 10.8 L Hct 32.3 L MCV 79 L MCH 26.3 L RDW 16.2 H D-Dimer 1.03 H AST 13 L - EKG Interpretation by Me EKG shows normal: Sinus rhythm, [place], Intervals, QRS Complexes, ST-T Waves Discharge - Discharge Clinical Impression: Right upper lobe pneumonia Qualifiers: Pneumonia type: due to unspecified organism Qualified Code(s): J18.1 - Lobar pneumonia, unspecified organism Condition: Good Disposition: HOME, SELF-CARE Instructions: Pneumonia ([facility]) Additional Instructions: It does appear that you have a pneumonia. We are giving you antibiotics at this time. You will need to get plenty of rest. If you develop worsening chest pain, shortness of breath, high fevers or any worsening symptoms please return immediately. It is very important that you follow-up with a regular doctor on Wednesday or return to the emergency department if getting worse over the weekend. Prescriptions: Azithromycin 250 mg PO DAILY 9 Days #9 tablet Forms: Return to Work
--- NOTE | 2017-10-22 14:58 | RADIOLOGY REPORT (SQ) ---
EXAM DESCRIPTION: CHEST PA/LAT COMPLETED DATE/TIME: 10/22/2017 2:50 pm REASON FOR STUDY: right sided chest pain COMPARISON: Two-view chest 07/21/2014 EXAM PARAMETERS: NUMBER OF VIEWS: two views TECHNIQUE: Digital Frontal and Lateral radiographic views of the chest acquired. RADIATION DOSE: NA LIMITATIONS: none FINDINGS: LUNGS AND PLEURA: No opacities, masses or pneumothorax. No pleural effusion. MEDIASTINUM AND HILAR STRUCTURES: No masses or contour abnormalities. HEART AND VASCULAR STRUCTURES: Heart normal size. No evidence for failure. BONES: No acute findings. HARDWARE: None in the chest. OTHER: No other significant finding. IMPRESSION: NO SIGNIFICANT RADIOGRAPHIC FINDING IN THE CHEST. TECHNICAL DOCUMENTATION: JOB ID: [id number] [employer]- All Rights Reserved
[2017-10-22 15:00] LABS: ABSOLUTE EOSINOPHILS # (AUTO) 0.1 10^3/uL (0.0-0.6); ABSOLUTE LYMPHOCYTES (AUTO) 1.5 10^3/uL (0.5-4.7); ABSOLUTE MONOCYTES (AUTO) 0.5 10^3/uL (0.1-1.4); BASOPHILS % (AUTO) 0.5 % (0-2); EOSINOPHILS % (AUTO) 1.6 % (0-6); HEMATOCRIT 32.3 % (36.0-47.0); HEMOGLOBIN 10.8 g/dL (12.0-15.5); LYMPHOCYTES % (AUTO) 18.4 % (13-45); MEAN CORPUSCULAR HEMOGLOBIN 26.3 pg (27.0-33.4); MEAN CORPUSCULAR HGB CONC 33.5 g/dL (32.0-36.0); MEAN CORPUSCULAR VOLUME 79 fl (80-97); MONOCYTES % (AUTO) 6.2 % (3-13); PLATELET COUNT 200 10^3/uL (150-450); RED BLOOD COUNT 4.11 10^6/uL (3.72-5.28); RED CELL DISTRIBUTION WIDTH 16.2 % (11.5-14.0); SEGMENTED NEUTROPHILS % (AUTO) 73.3 % (42-78); TOTAL CELLS COUNTED % (AUTO) 100 %; WHITE BLOOD COUNT 8.2 10^3/uL (4.0-10.5)
[2017-10-22 15:15] LABS: ALANINE AMINOTRANSFERASE 16 U/L (9-52); ALBUMIN 4.4 g/dL (3.5-5.0); ALKALINE PHOSPHATASE 47 U/L (38-126); ANION GAP 11 (5-19); ASPARTATE AMINO TRANSFERASE 13 U/L (14-36); BILIRUBIN,DIRECT 0.4 mg/dL (0.0-0.4); BILIRUBIN,TOTAL 0.4 mg/dL (0.2-1.3); BLOOD UREA NITROGEN 12 mg/dL (7-20); CARBON DIOXIDE 27 mmol/L (22-30); CHLORIDE 106 mmol/L (98-107); GLUCOSE 89 mg/dL (75-110); POTASSIUM 3.8 mmol/L (3.6-5.0); SODIUM 143.5 mmol/L (137-145); TOTAL PROTEIN 7.6 g/dL (6.3-8.2)
[2017-10-22 15:31] LABS: FREE T4 (FREE THYROXINE) 1.22 ng/dL (0.78-2.19)
[2017-10-22 15:45] LABS: THYROID STIMULATING HORMONE 1.2 uIU/mL (0.47-4.68)
--- NOTE | 2017-10-22 16:24 | RADIOLOGY REPORT (SQ) ---
EXAM DESCRIPTION: CTA CHEST COMPLETED DATE/TIME: 10/22/2017 4:07 pm REASON FOR STUDY: right chest pain and elevated d-dimer with tachy COMPARISON: None. TECHNIQUE: CT scan of the chest performed using helical scanning technique with dynamic intravenous contrast injection. Images reviewed with lung, soft tissue and bone windows. Reconstructed coronal and sagittal MPR images reviewed. Additional 3 dimensional post-processing performed to develop Maximal Intensity Projection images (AK P). All images stored on PACS. All CT scanners at this facility use dose modulation, iterative reconstruction, and/or weight based d osing when appropriate to reduce radiation dose to as low as reasonably achievable (ALARA). [facility]: Dose Right [facility]: CareDose [facility]: Dose Right [facility]: Teradose 4D [facility]: Detectent CONTRAST TYPE AND DOSE: contrast/concentration: Isovue 370.00 mg/ml; Total Contrast Delivered: 69.0 ml; Total Saline Delivered: 90.0 ml Contrast bolus adequate for pulmonary arteries and aorta. RENAL FUNCTION: BUN 12 creatinine 0.83. RADIATION DOSE: CT Rad equipment meets quality standard of care and radiation dose reduction techniq ues were employed. CTDIvol: 14.3 - 19.8 mGy. DLP: 533 mGy-cm. . LIMITATIONS: None. FINDINGS: LUNGS AND PLEURA: Focal infiltrate in the anteromedial right upper lobe. Lungs otherwise clear. No pleural effusion. No pneumothorax. AORTA AND GREAT VESSELS: No aneurysm. No dissection. HEART: No pericardial effusion. No significant coronary artery calcifications. PULMONARY ARTERIES: No emboli visualized in the main pulmonary arteries or the segmental branches. HILAR AND MEDIASTINAL STRUCTURES: No identified masses or abnormal nodes. HARDWARE: None in the chest. UPPER ABDOMEN: No significant findings. Limited exam. THYROID AND OTHER SOFT TISSUES: No masses. No adenopathy. BONES: No acute or significant finding. 3D MIPS: Confirm above findings. OTHER: No other significant finding. IMPRESSION: 1. NORMAL CTA OF THE CHEST. NO PULMONARY EMBOLI. 2. FOCAL INFILTRATE IN THE ANTEROMEDIAL RIGHT UPPER LOBE CONSISTENT WITH PNEUMONIA. COMMENT: Quality ID # [id number]: Final reports with documentation of one or more dose reduction techniques (e.g., Automated exposure control, adjustment of the mA and/or kV according to patient size, use of iterative reconstruction technique) TECHNICAL DOCUMENTATION: JOB ID: [id number]- All Rights Reserved
[2017-10-22] MEDS ORDERED: AZITHROMYCIN 250 MG TABLET PO ONE (16:45)
[2017-10-22 16:50] VITALS: BP 146/96
--- NOTE | 2017-10-22 18:28 | EKG REPORT ---
SEVERITY:- ABNORMAL ECG - SINUS RHYTHM PROBABLE LEFT ATRIAL ABNORMALITY BORDERLINE Q WAVES IN INFERIOR LEADS INFERIOR Q WAVES, PROBABLY NORMAL VARIATION : Confirmed by: Rober Rodriguez MD 22-Oct-2017 18:27:44
== END 2017-10-22 17:19 | disposition home or self-care (01) ==
LOC: ER 13:43 → EEVIPCON 13:43 → ER 17:19
DX: J18.1 Lobar pneumonia, unspecified organism (principal); R51 Headache
CPT/HCPCS: 36415; 71046; 71275; 80053; 84439; 84443; 84703; 85025; 85379; 86480; 93005; 93010; 99285

== ENCOUNTER 2018-08-27 19:11 | Emergency (ER) | payer OTHER, MEDICAID ==
--- NOTE | 2018-08-27 20:02 | ER Document Report ---
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 The patient's blood type is O+. She states she was seen in women's health care a few weeks ago and had an ultrasound in clinic and states that there were twin gestations and then she is approximately 12 weeks . She denies any significant abdominal pain at this time. Patient states she was doing light exercise (walking in place) and it was after she finished that she started experiencing the bleeding. Other than some cramping, she denies any significant pain. TRAVEL OUTSIDE OF THE [place] IN LAST 30 DAYS: No - HPI Onset: Just prior to arrival Onset/Duration: Gradual Quality of pain: No pain Associated symptoms: None. denies: Chest pain, Nausea, Vomiting, Shortness of breath Exacerbated by: Denies Relieved by: Denies Similar symptoms previously: Yes Recently seen / treated by doctor: Yes - Related Data Allergies/Adverse Reactions: No Known Allergies Allergy (Verified 10/22/17 13:44) Past Medical History - General Information source: Patient - Social History Smoking Status: Never Smoker Cigarette use (# per day): No Chew tobacco use (# tins/day): No Frequency of alcohol use: None Drug Abuse: None Lives with: Family Family History: DM, Hypertension, Malignancy Patient has suicidal ideation: No Patient has homicidal ideation: No - Past Medical History Cardiac Medical History: Reports: Hx Hypertension - gestational Renal/ Medical History: Denies: Hx Kidney Stones, Hx Ovarian Cysts, Hx Peritoneal Dialysis, Hx Pelvic Inflammatory Disease Malignancy Medical History: Denies: Hx Breast Cancer, Hx Cervical Cancer, Hx Ovarian Cancer GI Medical History: Denies: Hx Gastroesophageal Reflux Disease, Hx Hiatal Hernia , Hx Ulcer Psychiatric Medical History: Denies: Hx Depression Infectious Medical History: Denies: Hx HIV Past Surgical History: Reports: Hx Section - Immunizations Immunizations up to date: No Hx Diphtheria, Pertussis, Tetanus Vaccination: Yes Review of Systems - Review of Systems Constitutional: denies: Chills, Fever EENT: No symptoms reported Cardiovascular: denies: Chest pain, Palpitations, Heart racing Respiratory: No symptoms reported Gastrointestinal: No symptoms reported Genitourinary: See HPI Female Genitourinary: See HPI Musculoskeletal: No symptoms reported Skin: No symptoms reported Hematologic/Lymphatic: No symptoms reported Neurological/Psychological: No symptoms reported Physical Exam - Vital signs Vitals: Temp Pulse Resp BP Pulse Ox 99.4 F 125 H 20 131/81 H 98 08/27/18 19:19 08/27/18 19:19 08/27/18 19:19 08/27/18 19:19 08/27/18 19:19 Notes: Physical exam: GENERAL: Is alert and oriented x3, no acute distress HEAD: Atraumatic, normocephalic. EYES: Pupils equal round and reactive to light, extraocular movements intact, sclera anicteric, conjunctiva are normal. ENT: TMs normal, nares patent, oropharynx clear without exudates. Moist mucous membranes. NECK: Normal range of motion, supple without obvious mass or JVD. LUNGS: Breath sounds clear to auscultation bilaterally and equal. No wheezes rales or rhonchi. HEART: Regular rate and rhythm without murmurs, rubs or gallops. ABDOMEN: Soft, normoactive bowel sounds. No tenderness to palpation. No guarding, no rebound. No masses appreciated. Vaginal: Deferred for ultrasound EXTREMITIES: Normal range of motion, no pitting or edema. No clubbing or cyanosis. NEUROLOGICAL: Cranial nerves II through XII grossly intact. Normal speech, moving all extremities. PSYCH: Normal mood, normal affect. SKIN: Warm, Dry, normal turgor, no rashes or lesions noted. Course - Vital Signs Vital signs: Temp Pulse Resp BP Pulse Ox 99.4 F 125 H 20 131/81 H 98 08/27/18 19:19 08/27/18 19:19 08/27/18 19:19 08/27/18 19:19 08/27/18 19:19 - Laboratory Result Diagrams: 08/27/18 20:00 08/27/18 20:00 Laboratory results interpreted by me: 08/27/18 08/27/18 20:00 20:00 WBC 10.7 H Hgb 11.2 L Hct 32.2 L Absolute Neutrophils 8.4 H Creatinine 0.51 L Beta HCG, Quant 391511.00 H - Diagnostic Test Radiology reviewed: Image reviewed, Reports reviewed - Ultrasound shows a viable twin week gestations Discharge - Discharge Clinical Impression: Vaginal bleeding in early Condition: Stable Disposition: HOME, SELF-CARE Additional Instructions: As we discussed, the ultrasound showed 2 viable 12-week gestation babies with good heartbeat. Given the bleeding in your history, I would avoid all strenuous activity. I do want you up and walking around, want you to avoid heavy lifting, exercise. 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 Bring a copy of today's ultrasound report, lab work as well as the ultrasound itself. Return to the emergency room for worsening bleeding, pain or any concerns or getting worse. Referrals: CLARK LEÓN MD [Primary Care Provider] - Follow up as needed
[2018-08-27 20:13] LABS: ABSOLUTE EOSINOPHILS # (AUTO) 0.1 10^3/uL (0.0-0.6); ABSOLUTE LYMPHOCYTES (AUTO) 1.5 10^3/uL (0.5-4.7); ABSOLUTE MONOCYTES (AUTO) 0.7 10^3/uL (0.1-1.4); ABSOLUTE NEUT (AUTO) 8.4 10^3/uL (1.7-8.2); BASOPHILS % (AUTO) 0.4 % (0-2); EOSINOPHILS % (AUTO) 0.8 % (0-6); HEMATOCRIT 32.2 % (36.0-47.0); HEMOGLOBIN 11.2 g/dL (12.0-15.5); LYMPHOCYTES % (AUTO) 14.4 % (13-45); MEAN CORPUSCULAR HEMOGLOBIN 28.8 pg (27.0-33.4); MEAN CORPUSCULAR HGB CONC 34.8 g/dL (32.0-36.0); MEAN CORPUSCULAR VOLUME 83 fl (80-97); MONOCYTES % (AUTO) 6.7 % (3-13); PLATELET COUNT 196 10^3/uL (150-450); RED BLOOD COUNT 3.89 10^6/uL (3.72-5.28); RED CELL DISTRIBUTION WIDTH 13.4 % (11.5-14.0); SEGMENTED NEUTROPHILS % (AUTO) 77.7 % (42-78); TOTAL CELLS COUNTED % (AUTO) 100 %; WHITE BLOOD COUNT 10.7 10^3/uL (4.0-10.5)
[2018-08-27 20:32] LABS: ANION GAP 12 (5-19); BLOOD UREA NITROGEN 8 mg/dL (7-20); CALCIUM 9.7 mg/dL (8.4-10.2); CARBON DIOXIDE 22 mmol/L (22-30); CHLORIDE 105 mmol/L (98-107); GLUCOSE 103 mg/dL (75-110); POTASSIUM 3.9 mmol/L (3.6-5.0); SODIUM 139.1 mmol/L (137-145)
--- NOTE | 2018-08-27 21:15 | RADIOLOGY REPORT (SQ) ---
EXAM DESCRIPTION: US LESS THAN 14 WEEKS COMPLETED DATE/TME: 08/27/2018 19:58 CLINICAL HISTORY: 27 years, Female, vag bleed COMPARISON: None. TECHNIQUE: LIMITATIONS: None. FINDINGS: There is a live 12 week 4 day diamniotic twin . Both fetuses showed good cardiac activity. There is a normal amount of amniotic fluid in both gestational sacs. No evidence of hemorrhage. The cervix measures 4 cm in length and is closed. There are uterine fibroids, the 2 largest measuring 6.8 and 5.1 cm respectively. IMPRESSION: Live twin . Uterine fibroids. Follow-up ultrasound is recommended to monitor fibroid size. copyright 2010 [employer]- All Rights Reserved
[2018-08-27 23:10] VITALS: BP 120/71
== END 2018-08-27 23:10 | disposition home or self-care (01) ==
LOC: ER 19:11
DX: O20.9 Hemorrhage in early pregnancy, unspecified (principal); O30.001 Twin pregnancy, unspecified number of placenta and unspecified number of amniotic sacs, first trimester; O26.891 Other specified pregnancy related conditions, first trimester; R25.2 Cramp and spasm; Z3A.12 12 weeks gestation of pregnancy
CPT/HCPCS: 36415; 76801; 80048; 84702; 85025; 99284

== ENCOUNTER 2018-09-06 18:54 | Emergency (ER) | payer OTHER, MEDICAID ==
--- NOTE | 2018-09-06 19:36 | ER Document Report ---
ED Medical Screen (RME) - General Chief Complaint: Dizziness Stated Complaint: VOMIT W/BLOOD,DIZZINESS Time Seen by Provider: 09/06/18 19:33 Information source: Patient, Relative Notes: 27-year-old female at approximately 14 weeks gestation per last menstrual period which patient reports to be May 31, 2018 presents with complaint of sudden onset of blood streaked emesis, abdominal pain after vomiting and rectal pressure. I have greeted and performed a rapid initial assessment of this patient. A comprehensive ED assessment and evaluation of the patient, analysis of test results and completion of medical decision making process we will be contacted by additional ED providers. PHYSICAL EXAMINATION: Vital signs reviewed-tachycardic afebrile GENERAL: Well-appearing, well-nourished and in no acute distress. LUNGS: No respiratory distress Musculoskeletal: Normal range of motion NEUROLOGICAL: Normal speech, normal gait. PSYCH: Normal mood, normal affect. SKIN: Warm, Dry, normal turgor, no rashes or lesions noted. TRAVEL OUTSIDE OF THE [place] IN LAST 30 DAYS: No - HPI Onset: Just prior to arrival Onset/Duration: Sudden Quality of pain: Pressure Associated Symptoms: Abdominal pain, Nausea, Vomiting Exacerbated by: Denies Relieved by: Denies Similar symptoms previously: No Recently seen / treated by doctor: Yes - Related Data Smoking: Non-smoker Frequency of alcohol use: None Drug Abuse: None Allergies/Adverse Reactions: No Known Allergies Allergy (Verified 10/22/17 13:44) Past Medical History - Past Medical History Cardiac Medical History: Reports: Hx Hypertension - gestational Denies: Hx Heart Attack Renal/ Medical History: Denies: Hx Kidney Stones, Hx Ovarian Cysts, Hx Peritoneal Dialysis, Hx Pelvic Inflammatory Disease Malignancy Medical History: Denies: Hx Breast Cancer, Hx Cervical Cancer, Hx Ovarian Cancer GI Medical History: Denies: Hx Gastroesophageal Reflux Disease, Hx Hiatal Hernia , Hx Ulcer Psychiatric Medical History: Denies: Hx Depression Infectious Medical History: Denies: Hx HIV Past Surgical History: Reports: Hx Section - Immunizations Immunizations up to date: No Hx Diphtheria, Pertussis, Tetanus Vaccination: Yes History of Influenza Vaccine for 06/2017 - 11/2017 Season: No Physical Exam - Vital signs Vitals: Temp Pulse Resp BP Pulse Ox 98.7 F 104 H 16 123/73 97 09/06/18 19:18 12/18/18 19:18 09/06/18 19:18 09/06/18 19:18 18 19:18 Course - Vital Signs Vital signs: Temp Pulse Resp BP Pulse Ox 98.7 F 104 H 16 123/73 97 09/06/18 19:18 1818 19:18 18 19:18 09/06/18 19:18 09/06/18 19:18
[2018-09-06 20:06] LABS: ABSOLUTE BASOPHILS # (AUTO) 0.1 10^3/uL (0.0-0.2); ABSOLUTE EOSINOPHILS # (AUTO) 0.1 10^3/uL (0.0-0.6); ABSOLUTE LYMPHOCYTES (AUTO) 1.9 10^3/uL (0.5-4.7); ABSOLUTE MONOCYTES (AUTO) 0.6 10^3/uL (0.1-1.4); ABSOLUTE NEUT (AUTO) 13.6 10^3/uL (1.7-8.2); BASOPHILS % (AUTO) 0.4 % (0-2); EOSINOPHILS % (AUTO) 0.4 % (0-6); HEMATOCRIT 33.9 % (36.0-47.0); HEMOGLOBIN 11.6 g/dL (12.0-15.5); LYMPHOCYTES % (AUTO) 11.6 % (13-45); MEAN CORPUSCULAR HEMOGLOBIN 28.4 pg (27.0-33.4); MEAN CORPUSCULAR HGB CONC 34.2 g/dL (32.0-36.0); MEAN CORPUSCULAR VOLUME 83 fl (80-97); MONOCYTES % (AUTO) 3.7 % (3-13); PLATELET COUNT 235 10^3/uL (150-450); RED BLOOD COUNT 4.08 10^6/uL (3.72-5.28); RED CELL DISTRIBUTION WIDTH 13.3 % (11.5-14.0); SEGMENTED NEUTROPHILS % (AUTO) 83.9 % (42-78); TOTAL CELLS COUNTED % (AUTO) 100 %; WHITE BLOOD COUNT 16.2 10^3/uL (4.0-10.5)
[2018-09-06 20:10] LABS: APPEARANCE,URINE SLIGHTLY-CLOUDY; BILIRUBIN,URINE NEGATIVE (NEGATIVE); COLOR,URINE YELLOW; GLUCOSE, URINE NEGATIVE (NEGATIVE); KETONES,URINE 80 mg/dL (NEGATIVE); LEUKOCYTE ESTERASE,URINE NEGATIVE (NEGATIVE); NITRITE,URINE NEGATIVE (NEGATIVE); PROTEIN,URINE 30 mg/dL (NEGATIVE); URINE SPECIFIC GRAVITY 1.025; UROBILINOGEN,URINE NEGATIVE mg/dL (<2.0)
[2018-09-06 20:25] LABS: ALANINE AMINOTRANSFERASE < 6 U/L (9-52); ALBUMIN 4.3 g/dL (3.5-5.0); ALKALINE PHOSPHATASE 49 U/L (38-126); ANION GAP 11 (5-19); ASPARTATE AMINO TRANSFERASE 13 U/L (14-36); BILIRUBIN,DIRECT 0.2 mg/dL (0.0-0.4); BILIRUBIN,TOTAL 0.5 mg/dL (0.2-1.3); BLOOD UREA NITROGEN 8 mg/dL (7-20); CALCIUM 10.3 mg/dL (8.4-10.2); CARBON DIOXIDE 24 mmol/L (22-30); CHLORIDE 101 mmol/L (98-107); GLUCOSE 92 mg/dL (75-110); POTASSIUM 3.9 mmol/L (3.6-5.0); SODIUM 136.1 mmol/L (137-145); TOTAL PROTEIN 7.8 g/dL (6.3-8.2)
[2018-09-06] MEDS ORDERED: NORMAL SALINE 1000 ML 1,000 ML IV ONE (20:41)
--- NOTE | 2018-09-06 20:41 | ER Document Report ---
ED General - General Chief Complaint: Dizziness Stated Complaint: VOMIT W/BLOOD,DIZZINESS Time Seen by Provider: 09/06/18 19:33 Mode of Arrival: Ambulatory Information source: Patient Notes: This is a 27-year-old female with fibroids and multiple miscarriages who is currently in second trimester with twin gestations who states she felt warm, nauseated and lightheadedness and then had a forceful vomit. She states there was some blood specks towards the end of the vomit. Since that time, she actually states she is improved. She denies any nausea or abdominal pain at this time. TRAVEL OUTSIDE OF THE [place] IN LAST 30 DAYS: No - HPI Onset: Just prior to arrival Onset/Duration: Sudden Quality of pain: No pain Severity: None Pain Level: Denies Associated symptoms: Nausea, Vomiting, Other - Lightheadedness. denies: Chest pain, Fever, Shortness of breath Exacerbated by: Denies Relieved by: Denies Similar symptoms previously: No Recently seen / treated by doctor: Yes - Related Data Allergies/Adverse Reactions: No Known Allergies Allergy (Verified 10/22/17 13:44) Past Medical History - General Information source: Patient, Relative - Social History Smoking Status: Never Smoker Cigarette use (# per day): No Chew tobacco use (# tins/day): No Frequency of alcohol use: None Drug Abuse: None Lives with: Family Family History: DM, Hypertension, Malignancy Patient has suicidal ideation: No Patient has homicidal ideation: No - Past Medical History Cardiac Medical History: Reports: Hx Hypertension - gestational Denies: Hx Heart Attack Renal/ Medical History: Denies: Hx Kidney Stones, Hx Ovarian Cysts, Hx Peritoneal Dialysis, Hx Pelvic Inflammatory Disease Malignancy Medical History: Denies: Hx Breast Cancer, Hx Cervical Cancer, Hx Ovarian Cancer GI Medical History: Denies: Hx Gastroesophageal Reflux Disease, Hx Hiatal Hernia , Hx Ulcer Psychiatric Medical History: Denies: Hx Depression Infectious Medical History: Denies: Hx HIV Past Surgical History: Reports: Hx Section - Immunizations Immunizations up to date: No Hx Diphtheria, Pertussis, Tetanus Vaccination: Yes Review of Systems - Review of Systems Constitutional: denies: Chills, Fever EENT: No symptoms reported Cardiovascular: No symptoms reported Respiratory: No symptoms reported Gastrointestinal: See HPI Genitourinary: No symptoms reported Female Genitourinary: No symptoms reported Musculoskeletal: No symptoms reported Skin: No symptoms reported Hematologic/Lymphatic: No symptoms reported Neurological/Psychological: No symptoms reported Physical Exam - Vital signs Vitals: Temp Pulse Resp BP Pulse Ox 98.7 F 104 H 16 123/73 97 09/06/18 19:18 18 19:18 18 19:18 09/06/18 19:18 09/06/18 19:18 Notes: Physical exam: GENERAL: Patient is alert and oriented x3, no acute distress HEAD: Atraumatic, normocephalic. EYES: Pupils equal round and reactive to light, extraocular movements intact, sclera anicteric, conjunctiva are normal. ENT: TMs normal, nares patent, oropharynx clear without exudates. Moist mucous membranes. NECK: Normal range of motion, supple without obvious mass or JVD. LUNGS: Breath sounds clear to auscultation bilaterally and equal. No wheezes rales or rhonchi. HEART: Regular rate and rhythm without murmurs, rubs or gallops. ABDOMEN: consistent with second trimester . Soft, normoactive bowel sounds. No tenderness to palpation. No guarding, no rebound. EXTREMITIES: Normal range of motion, no pitting or edema. No clubbing or cyanosis. NEUROLOGICAL: Cranial nerves II through XII grossly intact. Normal speech, moving all extremities. PSYCH: Normal mood, normal affect. SKIN: Warm, Dry, normal turgor, no rashes or lesions noted. Course - Re-evaluation Re-evalutation: 09/07/18 00:19 Note: Patient was observed several hours in the ER. She was given IV fluids. She has not required IV antiemetics. The ultrasound shows good heartbeat both twins and the cervix is closed. Plan is supportive at this time. I think the patient had a vasovagal episode followed by an episode of forceful vomiting with a little bit of gastric or esophageal irritation. Her physical exam has been essentially unremarkable. And she is remained comfortable for the time that she is been here. Her vital signs are good. - Vital Signs Vital signs: Temp Pulse Resp BP Pulse Ox 98.0 F 100 20 111/70 100 09/06/18 23:06 09/06/18 23:06 09/06/18 23:06 09/06/18 23:06 09/06/18 23:06 - Laboratory Result Diagrams: 09/06/18 19:53 09/06/18 19:53 Laboratory results interpreted by me: 09/06/1818 09/06/18 19:53 19:53 19:53 WBC 16.2 H Hgb 11.6 L Hct 33.9 L Seg Neutrophils % 83.9 H Lymphocytes % 11.6 L Absolute Neutrophils 13.6 H Sodium 136.1 L Calcium 10.3 H AST 13 L ALT < 6 L TSH < 0.01 L Beta HCG, Quant 310659.00 H Urine Protein Urine Ketones Urine Ascorbic Acid 09/06/18 19:53 WBC Hgb Hct Seg Neutrophils % Lymphocytes % Absolute Neutrophils Sodium Calcium AST ALT TSH Beta HCG, Quant Urine Protein 30 H Urine Ketones 80 H Urine Ascorbic Acid 20 H Discharge - Discharge Clinical Impression: Vasovagal episode, Vomiting, UTI Condition: Stable Disposition: HOME, SELF-CARE Additional Instructions: As we discussed, the ultrasound of the twins look good. Your blood work looks stable. As we discussed, 1 of your thyroid test was low but the other 2 tests were normal: So they will recheck it in the next month as planned. Your urine test did show some white cells so we are going to treat you for a mild urine infection. We did send a urine culture. Return to the emergency room for worsening vomiting, worsening nausea, any abdominal pain or any concerns or getting worse. Follow-up with your OB doctor as planned. Prescriptions: Cephalexin Monohydrate [Keflex 500 mg Capsule] 500 mg PO Q6H 5 Days capsule
[2018-09-06 20:42] LABS: FREE T3 4.45 pg/mL (2.77-5.27); FREE T4 (FREE THYROXINE) 1.98 ng/dL (0.78-2.19)
--- NOTE | 2018-09-06 20:49 | RADIOLOGY REPORT (SQ) ---
EXAM DESCRIPTION: U/S 14782 + EACH ADDIT GEST COMPLETED DATE/TIME: 09/06/2018 8:30 pm REASON FOR STUDY: Abdominal pain with twin COMPARISON: 08/27/2018 TECHNIQUE: Limited transvaginal grayscale ultrasound for evaluation of specific requested obstetrica l parameters. LIMITATIONS: None. FINDINGS: CERVICAL LENGTH: 4.8 cm Closed. Twin a: FHR: 168 beats per minute. Estimated gestational age 15 weeks 0 days PRESENTATION: Breech. PLACENTA: Anterior ANATOMY: Not assessed Twin b: FHR: 168 beats per minute. Estimated gestational age 15 weeks 3 days PRESENTATION: Transverse. PLACENTA: Posterior ANATOMY: Not assessed OTHER: Fibroids. The largest is 6.1 x 4.3 x 5.9 cm. Additional measures 3.3 x 3.7 x 4.1 cm Enlarged left ovary. 5.4 x 4.1 x 4.2 cm. No focal masses. IMPRESSION: LIMITED OBSTETRICAL ULTRASOUND WITH MEASURED PARAMETERS DELINEATED ABOVE. Trimester of : Second trimester - 13 weeks 1 day to 27 weeks 6 days. TECHNICAL DOCUMENTATION: JOB ID: [id number] [employer]- All Rights Reserved Reading location - IP/workstation name: [email or web address]
[2018-09-06 20:56] LABS: THYROID STIMULATING HORMONE < 0.01 uIU/mL (0.47-4.68)
[2018-09-06 23:07] VITALS: BP 111/70
== END 2018-09-06 23:10 | disposition home or self-care (01) ==
LOC: ER 18:54
DX: O23.42 Unspecified infection of urinary tract in pregnancy, second trimester (principal); O30.002 Twin pregnancy, unspecified number of placenta and unspecified number of amniotic sacs, second trimester; R42 Dizziness and giddiness; R55 Syncope and collapse; R11.0 Nausea
CPT/HCPCS: 99284; 36415; 84439; 84702; 84443; 85025; 80053; 81001; 84481; 76810; J7030

== ENCOUNTER 2018-09-20 02:20 | Inpatient (IN) | payer OTHER, MEDICAID ==
--- NOTE | 2018-09-20 02:41 | ER Document Report ---
ED GI/ - General Chief Complaint: Hip Pain Stated Complaint: ABDOMINAL PAIN,HIP/BUTT PAIN Time Seen by Provider: 09/20/18 02:41 Mode of Arrival: Stretcher Information source: Patient, Relative Notes: Patient is a 27-year-old female at 4 months estimated gestational age who presents with sudden onset abdominal pain. Patient reports 2 previous episodes of vaginal bleeding during this , has been obtaining care and reports her last ultrasound approximately 2-1/2 weeks ago was "normal." This pain is an aching sensation that is intermittently sharp and throbbing, present in the lower abdomen with some radiation to the rectum and lower back, no active vaginal bleeding or discharge. Patient denies having similar symptoms in the past. Of note, she does not remember what symptoms preceded her 5 previous miscarriages. TRAVEL OUTSIDE OF THE [place] IN LAST 30 DAYS: No - HPI Patient complains to provider of: Abdominal pain, Pelvic pain, . No: Vaginal discharge, Vaginal pain Onset: Just prior to arrival Timing/Duration: Sudden, Constant Quality of pain: Achy, Stabbing, Throbbing Severity at maximum: Severe Severity in ED: Severe Pain Level: 5 Context: . denies: Recent trauma Location: Pelvis, Rectal Vaginal bleeding (Compared to normal period): None Menstrual period history: : 7 Para: 1 OB ultrasound done: Yes vitamins taken: Yes Sexual history: Active Associated symptoms: None Exacerbated by: Movement Relieved by: Denies Similar symptoms previously: No Recently seen / treated by doctor: No - Related Data Allergies/Adverse Reactions: No Known Allergies Allergy (Verified 10/22/17 13:44) Past Medical History - General Information source: Patient, Relative - Social History Smoking Status: Unknown if Ever Smoked Chew tobacco use (# tins/day): No Frequency of alcohol use: None Drug Abuse: None Lives with: Family Family History: DM, Hypertension, Malignancy Patient has suicidal ideation: No Patient has homicidal ideation: No - Past Medical History Cardiac Medical History: Reports: Hx Hypertension - gestational Denies: Hx Heart Attack Pulmonary Medical History: Reports: None EENT Medical History: Reports: None Neurological Medical History: Reports: None Endocrine Medical History: Reports: None Renal/ Medical History: Denies: Hx Kidney Stones, Hx Ovarian Cysts, Hx Peritoneal Dialysis, Hx Pelvic Inflammatory Disease Malignancy Medical History: Reports: None. Denies: Hx Breast Cancer, Hx Cervical Cancer, Hx Ovarian Cancer GI Medical History: Reports: None. Denies: Hx Gastroesophageal Reflux Disease, Hx Hiatal Hernia, Hx Ulcer Musculoskeletal Medical History: Reports None Skin Medical History: Reports None Psychiatric Medical History: Reports: None Denies: Hx Depression Traumatic Medical History: Reports: None Infectious Medical History: Reports: None. Denies: Hx HIV Surgical Hx: Negative Past Surgical History: Reports: Hx Section - Immunizations Immunizations up to date: No Hx Diphtheria, Pertussis, Tetanus Vaccination: Yes Review of Systems - Review of Systems Constitutional: No symptoms reported EENT: No symptoms reported Cardiovascular: No symptoms reported Respiratory: No symptoms reported Gastrointestinal: See HPI, Abdominal pain Genitourinary: No symptoms reported Female Genitourinary: See HPI, . denies: Vaginal discharge, Vaginal bleeding Musculoskeletal: No symptoms reported Skin: No symptoms reported Hematologic/Lymphatic: No symptoms reported Neurological/Psychological: No symptoms reported -: Yes All other systems reviewed and negative Physical Exam - Vital signs Vitals: Temp Pulse Resp BP Pulse Ox 97.6 F 113 H 20 126/75 H 100 09/20/18 02:37 09/20/18 02:37 09/20/18 02:37 09/20/18 02:37 09/20/18 02:37 Interpretation: Normal - Notes Notes: Well-appearing in no acute distress - General General appearance: Appears well, Alert - HEENT Head: Normocephalic, Atraumatic Eyes: Normal Pupils: PERRL - Respiratory Respiratory status: No respiratory distress Chest status: Nontender Breath sounds: Normal Chest palpation: Normal - Cardiovascular Rhythm: Regular Heart sounds: Normal auscultation Murmur: No - Abdominal Inspection: Normal Distension: No distension Bowel sounds: Normal Tenderness: Tender - Moderate tenderness throughout the lower abdomen and pelv ic/suprapubic area. No: Guarding, Rebound Organomegaly: No organomegaly - Rectal Notes: Deferred - Genitourinary Notes: Deferred - Back Back: Normal, Nontender - Extremities General upper extremity: Normal inspection, Nontender, Normal color, Normal ROM, Normal temperature General lower extremity: Normal inspection, Nontender, Normal color, Normal ROM, Normal temperature, Normal weight bearing. No: Elizabeth's sign - Neurological Neuro grossly intact: Yes Cognition: Normal Orientation: AAOx4 Tatum Coma Scale Eye Opening: Spontaneous Tatum Coma Scale Verbal: Oriented Tatum Coma Scale Motor: Obeys Commands Tatum Coma Scale Total: 15 Speech: Normal Motor strength normal: LUE, RUE, LLE, RLE Sensory: Normal - Psychological Associated symptoms: Normal affect, Normal mood - Skin Skin Temperature: Warm Skin Moisture: Dry Skin Color: Normal Course - Re-evaluation Re-evalutation: 09/20/18 03:53 Patient appears uncomfortable but is easily able to roll when stating she feels nauseated. Will obtain labs with beta hCG quantitative as well as OB ultrasound and reassess. 09/20/18 06:32 Labs indicate elevated white blood cell count, otherwise unremarkable. Urine is still pending. Plan is to await urinalysis and reassess the patient. Dr. Yu has been given signout on the patient. - Vital Signs Vital signs: Temp Pulse Resp BP Pulse Ox 97.6 F 113 H 25 H 129/81 H 97 09/20/18 02:37 09/20/18 02:37 09/20/18 05:01 09/20/18 05:01 09/20/18 05:01 - Laboratory Result Diagrams: 09/20/18 04:45 09/20/18 04:45 Laboratory results interpreted by me: 09/20/18 09/20/18 04:45 04:45 WBC 18.7 H RBC 3.56 L Hgb 9.9 L Hct 29.3 L Seg Neutrophils % 91.5 H Lymphocytes % 6.2 L Monocytes % 2.2 L Absolute Neutrophils 17.1 H Sodium 136.7 L AST 11 L Beta HCG, Quant 82583.00 H - Diagnostic Test Radiology reviewed: Reports reviewed - Transfer of Care Care transferred to following provider: Dr. Yu Notes: 09/20/18 06:33 Await urinalysis and reassess the patient. Discharge - Discharge Clinical Impression: Abdominal pain during Qualifiers: Trimester: second trimester Qualified Code(s): O26.892 - Other specified related conditions, second trimester; R10.9 - Unspecified abdominal pain Condition: Good
[2018-09-20] MEDS ORDERED: NORMAL SALINE 1000 ML 1,000 ML IV ONE ×2 (03:21→08:20)
[2018-09-20 04:55] LABS: ABSOLUTE LYMPHOCYTES (AUTO) 1.2 10^3/uL (0.5-4.7); ABSOLUTE MONOCYTES (AUTO) 0.4 10^3/uL (0.1-1.4); ABSOLUTE NEUT (AUTO) 17.1 10^3/uL (1.7-8.2); BASOPHILS % (AUTO) 0.1 % (0-2); HEMATOCRIT 29.3 % (36.0-47.0); HEMOGLOBIN 9.9 g/dL (12.0-15.5); LYMPHOCYTES % (AUTO) 6.2 % (13-45); MEAN CORPUSCULAR HEMOGLOBIN 27.7 pg (27.0-33.4); MEAN CORPUSCULAR HGB CONC 33.7 g/dL (32.0-36.0); MEAN CORPUSCULAR VOLUME 82 fl (80-97); MONOCYTES % (AUTO) 2.2 % (3-13); PLATELET COUNT 220 10^3/uL (150-450); RED BLOOD COUNT 3.56 10^6/uL (3.72-5.28); RED CELL DISTRIBUTION WIDTH 13.7 % (11.5-14.0); SEGMENTED NEUTROPHILS % (AUTO) 91.5 % (42-78); TOTAL CELLS COUNTED % (AUTO) 100 %; WHITE BLOOD COUNT 18.7 10^3/uL (4.0-10.5)
--- NOTE | 2018-09-20 05:04 | RADIOLOGY REPORT (SQ) ---
Ultrasound follow-up on 09/20/2018 at 3:51 AM CLINICAL INDICATION: Generalized abdominal pain COMPARISON: 09/06/2018 FINDINGS: Multiple sonographic images are obtained throughout the pelvis by transabdominal approach only, both transverse and sagittal images are obtained. Twin living intrauterine pregnancies are again identified. Lobulated heterogeneous uterus is consistent with uterine fibroids. Baby A: Positive cardiac activity is noted with heart rate of 158 bpm. Fetus is in breech presentation. Placenta is anterior in location with no evidence of placenta previa or abruption. Adequate amniotic fluid is noted. Estimated gestational age by measurements is an approximate 16 week gestation. Estimated weight is 132 g +/- 20 grams. Baby B: Positive cardiac activity is noted with heart rate of 160 bpm. Fetus is in cephalic presentation. Placenta is anterior in location with no evidence of placenta previa or abruption. Adequate amniotic fluid is noted. Estimated gestational age by measurements is an approximate 17 week three day gestation. Estimated weight is 203 g +/- 30 grams. IMPRESSION: Twin living intrauterine fetuses as above. No gross acute abnormality noted.
[2018-09-20 05:11] LABS: ALANINE AMINOTRANSFERASE 9 U/L (9-52); ALBUMIN 3.8 g/dL (3.5-5.0); ALKALINE PHOSPHATASE 48 U/L (38-126); ANION GAP 10 (5-19); ASPARTATE AMINO TRANSFERASE 11 U/L (14-36); BILIRUBIN,DIRECT 0.1 mg/dL (0.0-0.4); BILIRUBIN,TOTAL 0.3 mg/dL (0.2-1.3); BLOOD UREA NITROGEN 7 mg/dL (7-20); CALCIUM 9.4 mg/dL (8.4-10.2); CARBON DIOXIDE 23 mmol/L (22-30); CHLORIDE 104 mmol/L (98-107); GLUCOSE 108 mg/dL (75-110); LIPASE 142.5 U/L (23-300); POTASSIUM 3.6 mmol/L (3.6-5.0); SODIUM 136.7 mmol/L (137-145); TOTAL PROTEIN 6.9 g/dL (6.3-8.2)
[2018-09-20] MEDS ORDERED: ACETAMINOPHEN 325 MG TABLET PO ONE ×2 (06:21→11:44)
[2018-09-20 06:50] LABS: APPEARANCE,URINE CLEAR; BILIRUBIN,URINE NEGATIVE (NEGATIVE); COLOR,URINE YELLOW; GLUCOSE, URINE NEGATIVE (NEGATIVE); KETONES,URINE 20 mg/dL (NEGATIVE); LEUKOCYTE ESTERASE,URINE NEGATIVE (NEGATIVE); NITRITE,URINE NEGATIVE (NEGATIVE); PROTEIN,URINE NEGATIVE (NEGATIVE); URINE SPECIFIC GRAVITY 1.009; UROBILINOGEN,URINE NEGATIVE mg/dL (<2.0)
[2018-09-20 07:05] LABS: URINE AMPHETAMINES SCREEN NEGATIVE; URINE BARBITURATES SCREEN NEGATIVE; URINE BENZODIAZEPINES SCREEN NEGATIVE; URINE COCAINE SCREEN NEGATIVE; URINE MARIJUANA (THC) SCREEN NEGATIVE; URINE METHADONE SCREEN NEGATIVE; URINE PHENCYCLIDINE SCREEN NEGATIVE
[2018-09-20] MEDS ORDERED: FENTANYL CITRATE INJ/PF 100 MCG/2 ML AMPUL IV ONE (08:19)
--- NOTE | 2018-09-20 08:24 | ER Document Report ---
ED General - General Chief Complaint: Hip Pain Stated Complaint: ABDOMINAL PAIN,HIP/BUTT PAIN Time Seen by Provider: 09/20/18 02:41 Mode of Arrival: Stretcher Notes: with 5 miscarriages presents with acute abdominal pain lower radiating up intermittent but severe associated with shortness of breath when it comes. Seen by overnight provider, however credit to me for chart and critical care. 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 Currently pain with twins at 16 weeks under the care of Dr. Mccartney here in [place]. TRAVEL OUTSIDE OF THE [place] IN LAST 30 DAYS: No - Related Data Allergies/Adverse Reactions: No Known Allergies Allergy (Verified 10/22/17 13:44) Past Medical History - General Information source: Patient, Relative - Social History Smoking Status: Never Smoker Chew tobacco use (# tins/day): No Frequency of alcohol use: None Drug Abuse: None Lives with: Family Family History: DM, Hypertension, Malignancy Patient has suicidal ideation: No Patient has homicidal ideation: No - Past Medical History Cardiac Medical History: Reports: Hx Hypertension - gestational Denies: Hx Heart Attack Pulmonary Medical History: Reports: None EENT Medical History: Reports: None Neurological Medical History: Reports: None Endocrine Medical History: Reports: None Renal/ Medical History: Denies: Hx Kidney Stones, Hx Ovarian Cysts, Hx Peritoneal Dialysis, Hx Pelvic Inflammatory Disease Malignancy Medical History: Reports: None. Denies: Hx Breast Cancer, Hx Cervical Cancer, Hx Ovarian Cancer GI Medical History: Reports: None. Denies: Hx Gastroesophageal Reflux Disease, Hx Hiatal Hernia, Hx Ulcer Musculoskeletal Medical History: Reports None Skin Medical History: Reports None Psychiatric Medical History: Reports: None Denies: Hx Depression Traumatic Medical History: Reports: None Infectious Medical History: Reports: None. Denies: Hx HIV Surgical Hx: Negative Past Surgical History: Reports: Hx Section - Immunizations Immunizations up to date: No Hx Diphtheria, Pertussis, Tetanus Vaccination: Yes Review of Systems - Review of Systems Notes: REVIEW OF SYSTEMS GEN: Denies fever, chills, weight loss ENT: Denies sore throat, nasal discharge, ear pain EYES: Denies blurry vision, eye pain, discharge CV: Denies chest pain, palpitations, edema RESP: Denies cough, shortness of breath, wheezing GI: Dental pain. No bleeding no loss of fluid no discharge. MSK: Denies joint pain/swelling, edema, SKIN: Denies rash, skin lesions LYMPH: Denies swollen glands/lymph nodes NEURO: Denies headache, focal weakness or numbness, dizziness PSYCH: Denies depression, suicidal or homicidal ideation PHYSICAL EXAMINATION General: Pain acute distress Head: Atraumatic, normocephalic ENT: Mouth normal, oropharynx moist, no exudates or tonsillar enlargement Eyes: Conjunctiva normal, pupils equal, lids normal Neck: No JVD, supple, no guarding CVS: Normal rate, regular rhythm, no murmurs Resp: No resp distress, equal and normal breath sounds bilaterally GI: Firm abdomen gravid with tenderness throughout and guarding Ext: No deformities, no edema, normal range of motion in upper and lower ext Back: No CVA or midline TTP Skin: No rash, warm Lymphatic: No lymphadeopathy noted Neuro: Awake, alert. Face symmetric. GCS 15. Physical Exam - Vital signs Vitals: Temp Pulse Resp BP Pulse Ox 97.6 F 113 H 20 126/75 H 100 09/20/18 02:37 09/20/18 02:37 09/20/18 02:37 09/20/18 02:37 09/20/18 02:37 Course - Re-evaluation Re-evalutation: 09/20/18 08:30 High risk female with acute abdominal pain and uterine contractions or peritoneal signs on my exam at approximately 8:20 AM. Signed out by night provider pending urine. Marked leukocytosis is present, ultrasound is reassuring of both fetuses. I am concerned for labor chorioamnionitis or acute abdominal pain cause such as appendicitis or cholecystitis. I discussed with Dr. Mccartney who would like the patient set up to OB. For computer purposes she was discharged from the system however she will be transferred under the care of Dr. Mccartney. I gave her more fluids and fentanyl. She was reassessed prior to transfer and is stable to be brought upstairs. - Vital Signs Vital signs: Temp Pulse Resp BP Pulse Ox 97.6 F 113 H 22 H 127/81 H 100 09/20/18 02:37 09/20/18 02:37 09/20/18 07:01 09/20/18 07:00 09/20/18 07:01 - Laboratory Result Diagrams: 09/20/18 04:45 09/20/18 04:45 Laboratory results interpreted by me: 09/20/18 09/20/18 09/20/18 04:45 04:45 06:32 WBC 18.7 H RBC 3.56 L Hgb 9.9 L Hct 29.3 L Seg Neutrophils % 91.5 H Lymphocytes % 6.2 L Monocytes % 2.2 L Absolute Neutrophils 17.1 H Sodium 136.7 L AST 11 L Beta HCG, Quant 13014.00 H Urine Ketones 20 H Critical Care Note - Critical Care Note Total time excluding time spent on procedures (mins): 31 Comments: The above patient is critically ill. Not including procedures, but including direct re-evaluations, speaking with patient and/or consultants, interpreting results, and documenting, I spent the total amount of minute listed listed above on critical care time Discharge - Discharge Clinical Impression: Abdominal pain during Qualifiers: Trimester: second trimester Qualified Code(s): O26.892 - Other specified related conditions, second trimester Condition: Critical Disposition: LABOR CHECK Admitting Provider: [facility] Unit Admitted: Labor and Delivery Additional Instructions: Please note that you are not being discharged. You are being transferred to [facility] under the care of Dr. Mccartney but for computer purposes we must print you discharge instructions. He will be personally escorted to the [facility].
[2018-09-20 09:04] LABS: BACTERIA (WET MOUNT) 3+ BACTERIA SEEN; EPITHELIALS (WET MOUNT) 3+ EPITHELIALS SEEN; RBCS (WET MOUNT) RARE RBCS SEEN; T.VAGINALIS (WET MOUNT) NO TRICHOMONAS SEEN; WBCS (WET MOUNT) 1+ WBCS SEEN; YEAST (WET MOUNT) NO YEAST SEEN
[2018-09-20] MEDS ORDERED: CEFTRIAXONE INJ 1000 MG VIAL IM ONE ×2 (10:00→13:00)
--- NOTE | 2018-09-20 10:07 | RADIOLOGY REPORT (SQ) ---
EXAM DESCRIPTION: CT ABD/PELVIS WITH IV ONLY COMPLETED DATE/TIME: 09/20/2018 9:48 am REASON FOR STUDY: Concern for appendicitis in , MRI unavailable COMPARISON: 04/16/2015 TECHNIQUE: CT scan of the abdomen and pelvis performed using helical scanning technique with dynamic intravenous contrast injection. No oral contrast. Images reviewed with lung, soft tissue, and bone windows. Reconstructed coronal and sagittal MPR images reviewed. Delayed images for evaluation of the urinary system also acquired. All images stored on PACS. All CT scanners at this facility use dose modulation, iterative reconstruction, and/or weight based d osing when appropriate to reduce radiation dose to as low as reasonably achievable (ALARA). [facility]: Dose Right [facility]: CareDose [facility]: Dose Right [facility]: Teradose 4D [facility]: My COI CONTRAST TYPE AND DOSE: contrast/concentration: Isovue 350.00 mg/ml; Total Contrast Delivered: 88.0 ml; Total Saline Delivered: 52.9 ml RENAL FUNCTION: None required. The patient is less than 50 years old. RADIATION DOSE: CT Rad equipment meets quality standard of care and radiation dose reduction techniq ues were employed. CTDIvol: 11.4 - 15.9 mGy. DLP: 1455 mGy-cm.. LIMITATIONS: None. FINDINGS: LOWER CHEST: No significant findings. No nodules or infiltrates. LIVER: Normal size. No masses. No dilated ducts. SPLEEN: Normal size. No focal lesions. PANCREAS: No masses. No significant calcifications. No adjacent inflammation or peripancreatic fluid collections. Pancreatic duct not dilated. GALLBLADDER: No identified stones by CT criteria. No inflammatory changes to suggest cholecystitis. ADRENAL GLANDS: No significant masses or asymmetry. RIGHT KIDNEY AND URETER: No solid masses. No significant calcifications. No hydronephrosis or hyd roureter. LEFT KIDNEY AND URETER: No solid masses. No significant calcifications. No hydronephrosis or hydr oureter. AORTA AND VESSELS: No aneurysm. No dissection. Renal arteries, SMA, celiac without stenosis. RETROPERITONEUM: No retroperitoneal adenopathy, hemorrhage or masses. BOWEL AND PERITONEAL CAVITY: No masses or inflammatory changes. Moderate volume ascites. APPENDIX: The normal appendix is seen anterior to the right kidney. PELVIS: Gravid uterus. There are multiple large, heterogeneous uterine fibroids in keeping with find ings of prior CT. ABDOMINAL WALL: No masses. No hernias. BONES: No significant or acute findings. OTHER: No other significant finding. IMPRESSION: 1. Moderate volume ascites, of uncertain origin. There are no evident inflammatory fin dings within the abdomen. 2. Normal appendix. 3. Gravid uterus. 4. Multiple large, heterogeneous uterine fibroids, in keeping with findings of prior CT dated 2014. TECHNICAL DOCUMENTATION: JOB ID: [id number] Quality ID # [id number]: Final reports with documentation of one or more dose reduction techniques (e.g., Au tomated exposure control, adjustment of the mA and/or kV according to patient size, use of iterative reconstruction technique) 2010 [employer]- All Rights Reserved Reading location - IP/workstation name: [email or web address]
--- NOTE | 2018-09-20 11:54 | RADIOLOGY REPORT (SQ) ---
EXAM DESCRIPTION: U/S OB LIMITED COMPLETED DATE/TIME: 09/20/2018 11:05 am REASON FOR STUDY: cervical length COMPARISON: Same day ultrasound TECHNIQUE: Limited transvaginal grayscale ultrasound for evaluation of specific requested obstetrica l parameters. LIMITATIONS: None. FINDINGS: CERVICAL LENGTH: 3.3 cm Closed. IMPRESSION: Cervical length 3.3 cm. Please see prior same day ultrasound examination for more detai led examination. Trimester of : Second trimester - 13 weeks 1 day to 27 weeks 6 days. TECHNICAL DOCUMENTATION: JOB ID: [id number] [employer]- All Rights Reserved Reading location - IP/workstation name: [email or web address]
--- NOTE | 2018-09-20 12:19 | PDOC H&P ---
History of Present Illness History of Present Illness: MAR MURCIA is a 27 year old female @ approx 16 wks EGA with twin gestation. Presented to ER this AM with worsening abdominal pain that began acutely yesterday afternoon. Has had full workup and has negative appy on CT. Sono is reassuring with CL of 3.3. Has known fibroids (please see my operative note from 07/21/2017 for details.) Past Medical History Cardiac Medical History: Reports: Hypertension - gestational Denies: Myocardial Infarction Pulmonary Medical History: Reports: None EENT Medical History: Reports: None Neurological Medical History: Reports: None Endocrine Medical History: Reports: None Malignancy Medical History: Reports: None Denies: Breast Cancer, Cervical Cancer, Ovarian Cancer GI Medical History: Reports: None Denies: Gastroesophageal Reflux Disease, Hiatal Hernia Musculoskeltal Medical History: Reports: None Skin Medical History: Reports: None Psychiatric Medical History: Reports: None Denies: Depression Traumatic Medical History: Reports: None Infectious Medical History: Reports: None Denies: HIV Past Surgical History Past Surgical History: Reports: Section Social History Lives with: Family Smoking Status: Never Smoker Frequency of Alcohol Use: None Hx Recreational Drug Use: No Hx Prescription Drug Abuse: No Family History Family History: DM, Hypertension, Malignancy Parental Family History Reviewed: Yes Children Family History Reviewed: Yes Sibling(s) Family History Reviewed.: Yes Medication/Allergy Home Medications: Multivitamin with Minerals [Hair, Skin and Nails] 1 tab PO DAILY 09/20/18 Pnv No.95/Ferrous Fum/Folic AC [ Vitamin Tablet] 1 tab PO DAILY 09/20/18 Allergies/Adverse Reactions: No Known Allergies Allergy (Verified 10/22/17 13:44) Physical Exam - Physical Exam Vital Signs: Temp Pulse Resp BP Pulse Ox 97.6 F 113 H 15 114/78 100 09/20/18 02:37 09/20/18 02:37 09/20/18 11:05 09/20/18 11:05 09/20/18 11:05 Intake & Output 09/19/18 09/20/18 09/21/18 06:59 06:59 06:59 Intake Total 1000 1000 Balance 1000 1000 Weight 77.111 kg General appearance: PRESENT: cooperative, mild distress Head exam: PRESENT: atraumatic GI/Abdominal exam: PRESENT: soft, tenderness - diffuse - Gynecological Exam Labia: normal Urethra: normal Introitus: normal Perineum: normal Vagina: normal Cervix: normal Cervix: normal - Obstetrical Exam External Genitalia: normal Vagina: normal Dilation (cm): 0 Effacement (%): 0 Fundal Height: 1/u - 2/u Tender: Yes - diffuse Adhexa: normal Result Laboratory Results: 09/20/18 04:45 09/20/18 04:45 09/20/18 09/20/18 09/20/18 04:45 04:45 06:32 WBC 18.7 H RBC 3.56 L Hgb 9.9 L Hct 29.3 L MCV 82 MCH 27.7 MCHC 33.7 RDW 13.7 Plt Count 220 Seg Neutrophils % 91.5 H Lymphocytes % 6.2 L Monocytes % 2.2 L Eosinophils % 0.0 Basophils % 0.1 Absolute Neutrophils 17.1 H Absolute Lymphocytes 1.2 Absolute Monocytes 0.4 Absolute Eosinophils 0.0 Absolute Basophils 0.0 Sodium 136.7 L Potassium 3.6 Chloride 104 Carbon Dioxide 23 Anion Gap 10 BUN 7 Creatinine 0.52 Est GFR ( Amer) > 60 Est GFR (Non-Af Amer) > 60 Glucose 108 Calcium 9.4 Total Bilirubin 0.3 AST 11 L ALT 9 Alkaline Phosphatase 48 Total Protein 6.9 Albumin 3.8 Lipase 142.5 Urine Color YELLOW Urine Appearance CLEAR Urine pH 6.0 Ur Specific [place] 1.009 Urine Protein NEGATIVE Urine Glucose (UA) NEGATIVE Urine Ketones 20 H Urine Blood NEGATIVE Urine Nitrite NEGATIVE Ur Leukocyte Esterase NEGATIVE Urine WBC (Auto) 6 Urine RBC (Auto) 0 Impressions: Obstetrics Ultrasound 09/20/18 03:20 IMPRESSION: Twin living intrauterine fetuses as above. No gross acute abnormality noted. Abdomen/Pelvis CT 09/20/18 08:50 IMPRESSION: 1. Moderate volume ascites, of uncertain origin. There are no evident inflammatory findings within the abdomen. 2. Normal appendix. 3. Gravid uterus. 4. Multiple large, heterogeneous uterine fibroids, in keeping with findings of prior CT dated 2014. Assessment & Plan - Diagnosis (1) Abdominal pain during Qualifiers: Trimester: second trimester Qualified Code(s): O26.892 - Other specified related conditions, second trimester; R10.9 - Unspecified abdominal pain Is this a current diagnosis for this admission?: Yes (2) Abdominal pain Is this a current diagnosis for this admission?: Yes (3) Fibroid uterus Qualifiers: Uterine leiomyoma location: intramural and subserous Qualified Code(s): D25.1 - Intramural leiomyoma of uterus; D25.2 - Subserosal leiomyoma of uterus Is this a current diagnosis for this admission?: Yes (4) Twin gestation in second trimester Qualifiers: Multiple gestation type: dichorionic and diamniotic Qualified Code(s): O30.042 - Twin , dichorionic/diamniotic, second trimester - Time Time Spent: 30 to 50 Minutes Critical Time spent with patient: 15-24 minutes Medications reviewed and adjusted accordingly: Yes Anticipated discharge: Home Within: within 24 hours - Inpatient Certification Based on my medical assessment, after consideration of the patient's comorbidities, presenting symptoms, or acuity I expect that the services needed warrant INPATIENT care.: Yes I certify that my determination is in accordance with my understanding of Medicare's requirements for reasonable and necessary INPATIENT services [42 CFR 412.3e].: Yes Medical Necessity: Need for Pain Control, Need for IV Antibiotics - Plan Summary Plan Summary: will admit for indomethecin initiation and observation. Explained to pt that if indeed fibrooids are degenerating as they seem to be on CT scan that there is no treatment that will completely address pain. Pt's cervical length is reassuring and does not appear to be a concern for delivery or miscarriage at this time. However, pt and her both counseled that twin gestation with or without fibroids in the uterus do have higher risk of miscarriage. Indomethecin is NSAID that can be used with caution up to 32 weeks of gestation. Pt will need to keep her follow up with [facility] in [place] next week for further assessment of the .
[2018-09-20] MEDS ORDERED: CEFTRIAXONE INJ 1000 MG VIAL IM SCH (12:30)
[2018-09-20] MEDS ORDERED: SUCRALFATE 1 GM TABLET PO SCH (12:30)
[2018-09-20] MEDS ORDERED: LIDOCAINE HCL 1% INJ (FOR 1 GM VIAL) INJ ONE (13:00)
[2018-09-20] MEDS ORDERED: LIDOCAINE HCL 1% INJ (FOR 1 GM VIAL) INJ SCH (13:00)
[2018-09-20] MEDS ORDERED: INDOMETHACIN SODIUM TRIHYDRATE IV SCH (14:00)
[2018-09-20] MEDS ORDERED: MORPHINE SULFATE 10 MG/ML INJ ONE (14:09)
[2018-09-20] MEDS: RINGERS SOLUTION,LACTATED 1,000 ML IV PRN ×2 (14:16→20:43)
[2018-09-20] MEDS ORDERED: MORPHINE SULFATE 10 MG/ML INJ IV ONE (15:00)
[2018-09-20] MEDS: INDOMETHACIN 25 MG CAPSULE PO SCH ×2 (15:06→17:34)
[2018-09-20] MEDS: CEFTRIAXONE 1 GM/D5W RTU 1 GM/50 ML RTUPB IV SCH (17:34)
[2018-09-21 01:07] LABS: CHLAM PCR NOT DETECTED (NOT DETECT); GON PCR NOT DETECTED (NOT DETECT)
[2018-09-21] MEDS: INDOMETHACIN 25 MG CAPSULE PO SCH ×5 (01:24→23:13)
[2018-09-21] MEDS: CEFTRIAXONE 1 GM/D5W RTU 1 GM/50 ML RTUPB IV SCH ×2 (07:21→17:38)
[2018-09-21 08:09] LABS: HEMOGLOBIN 8.5 g/dL (12.0-15.5); MEAN CORPUSCULAR HEMOGLOBIN 27.8 pg (27.0-33.4); MEAN CORPUSCULAR HGB CONC 34.1 g/dL (32.0-36.0); MEAN CORPUSCULAR VOLUME 82 fl (80-97); PLATELET COUNT 192 10^3/uL (150-450); RED BLOOD COUNT 3.06 10^6/uL (3.72-5.28); RED CELL DISTRIBUTION WIDTH 13.7 % (11.5-14.0); WHITE BLOOD COUNT 10.9 10^3/uL (4.0-10.5)
--- NOTE | 2018-09-21 09:51 | PDOC PROGRESS REPORT ---
Subjective Progress Note for:: 09/21/18 Subjective:: pt c/o stomach pain and does not want to go home today Reason For Visit: ABDOMINAL PAIN DURING Physical Exam - Physical Exam Vital Signs: Temp Pulse Resp BP Pulse Ox 99.3 F 96 14 111/64 98 09/21/18 08:12 09/21/18 08:12 09/21/18 08:12 09/21/18 08:12 09/21/18 08:12 Intake & Output 09/20/18 09/21/18 09/22/18 06:59 06:59 06:59 Intake Total 1000 2055 Balance 1000 2055 Weight 77.111 kg 78 kg General appearance: PRESENT: no acute distress GI/Abdominal exam: PRESENT: soft - Gynecological Exam Labia: normal Urethra: normal Introitus: normal Perineum: normal Vagina: normal Cervix: normal Cervix: normal - Obstetrical Exam External Genitalia: normal Vagina: normal Adhexa: normal Result Laboratory Results: 09/21/18 07:15 09/20/18 04:45 09/21/18 07:15 WBC 10.9 H RBC 3.06 L Hgb 8.5 L Hct 25.0 L MCV 82 MCH 27.8 MCHC 34.1 RDW 13.7 Plt Count 192 Impressions: Obstetrics Ultrasound 09/20/18 03:20 IMPRESSION: Twin living intrauterine fetuses as above. No gross acute abnormality noted. Abdomen/Pelvis CT 09/20/18 08:50 IMPRESSION: 1. Moderate volume ascites, of uncertain origin. There are no evident inflammatory findings within the abdomen. 2. Normal appendix. 3. Gravid uterus. 4. Multiple large, heterogeneous uterine fibroids, in keeping with findings of prior CT dated 2014. Assessment & Plan - Plan Summary Plan Summary: continue with expectant management and indomethacin for pain D/C in am if stable
[2018-09-21] MEDS: RINGERS SOLUTION,LACTATED 1,000 ML IV PRN ×2 (13:12→23:18)
[2018-09-22] MEDS: INDOMETHACIN 25 MG CAPSULE PO SCH ×4 (06:24→23:52)
[2018-09-22] MEDS: CEFTRIAXONE 1 GM/D5W RTU 1 GM/50 ML RTUPB IV SCH ×2 (06:25→17:43)
[2018-09-22] MEDS: RINGERS SOLUTION,LACTATED 1,000 ML IV PRN (14:23)
[2018-09-23] MEDS: RINGERS SOLUTION,LACTATED 1,000 ML IV PRN ×2 (02:04→09:45)
--- NOTE | 2018-09-23 03:52 | PDOC PROGRESS REPORT ---
Subjective Progress Note for:: 09/22/18 Subjective:: pain improved from admission, doing well, ambulating, tolerating po without difficulty Reason For Visit: ABDOMINAL PAIN DURING Physical Exam - Physical Exam Vital Signs: Temp Pulse Resp BP Pulse Ox 97.9 F 100 16 116/70 99 09/22/18 20:41 09/22/18 20:41 09/22/18 20:41 09/22/18 20:41 09/22/18 20:41 Intake & Output 09/21/18 09/22/18 09/23/18 06:59 06:59 06:59 Intake Total 2055 3500 2570 Balance 2055 3500 2570 Weight 78 kg 78 kg General appearance: PRESENT: no acute distress, well-developed, well-nourished Head exam: PRESENT: atraumatic, normocephalic Respiratory exam: PRESENT: clear to auscultation rene, symmetrical, unlabored Cardiovascular exam: PRESENT: RRR. ABSENT: diastolic murmur, rubs, systolic murmur Pulses: PRESENT: normal carotid pulses Vascular exam: PRESENT: normal capillary refill GI/Abdominal exam: PRESENT: normal bowel sounds, soft, other - fibroid uterus. ABSENT: distended, guarding, mass, organolmegaly, rebound, tenderness Rectal exam: PRESENT: deferred Extremities exam: PRESENT: full ROM. ABSENT: calf tenderness, clubbing, pedal edema Neurological exam: PRESENT: alert Psychiatric exam: PRESENT: appropriate affect, normal mood. ABSENT: homicidal ideation, suicidal ideation Skin exam: PRESENT: dry, intact, warm. ABSENT: cyanosis, rash - Gynecological Exam Labia: normal Urethra: normal Introitus: normal Perineum: normal Vagina: normal Cervix: normal Cervix: normal - Obstetrical Exam External Genitalia: normal Vagina: normal Adhexa: normal Result Laboratory Results: 09/21/18 07:15 09/20/18 04:45 Impressions: Obstetrics Ultrasound 09/20/18 03:20 IMPRESSION: Twin living intrauterine fetuses as above. No gross acute abnormality noted. Abdomen/Pelvis CT 09/20/18 08:50 IMPRESSION: 1. Moderate volume ascites, of uncertain origin. There are no evident inflammatory findings within the abdomen. 2. Normal appendix. 3. Gravid uterus. 4. Multiple large, heterogeneous uterine fibroids, in keeping with findings of prior CT dated 2014. Status: Imported from PACS Assessment & Plan - Diagnosis (1) Abdominal pain during Qualifiers: Trimester: second trimester Qualified Code(s): O26.892 - Other specified related conditions, second trimester; R10.9 - Unspecified abdominal pain Is this a current diagnosis for this admission?: Yes Plan: Doing well, pain much better, Known significantly enlarged fibroid uterus with twin . reviewed with patient plan for continue scheduled indocin thoughout the night and then if continues to do well then will discharge home tomorrow. - Time Time Spent with patient: 15-24 minutes Smoking Cessation Education: 3 to 10 minutes Medications reviewed and adjusted accordingly: Yes Anticipated discharge: Home Within: within 24 hours
[2018-09-23] MEDS ORDERED: NALBUPHINE HCL INJ 10 MG/1 ML AMPULE INJ ONE (04:00)
[2018-09-23] MEDS ORDERED: NALBUPHINE HCL INJ 10 MG/1 ML AMPULE ONE (04:06)
[2018-09-23] MEDS: CEFTRIAXONE 1 GM/D5W RTU 1 GM/50 ML RTUPB IV SCH (06:39)
[2018-09-23] MEDS ORDERED: ONDANSETRON HCL INJ/PF 4 MG/2 ML SDV ONE (06:47)
[2018-09-23] MEDS: INDOMETHACIN 25 MG CAPSULE PO SCH ×2 (08:03→13:36)
--- NOTE | 2018-09-23 11:39 | PDOC DISCHARGE SUMMARY ---
General - Admit/Disc Date/PCP Admission Date/Primary Care Provider: 09/20/18 12:42 Discharge Date: 09/23/18 - Discharge Diagnosis (1) Twin gestation in second trimester Is this a current diagnosis for this admission?: Yes (2) Uterine fibroids affecting in second trimester Is this a current diagnosis for this admission?: Yes - Additional Information Resuscitation Status: Full Code Discharge Diet: Regular Discharge Activity: Activity As Tolerated, Balance Activity w/Rest Home Medications: Multivitamin with Minerals [Hair, Skin and Nails] 1 tab PO DAILY 09/20/18 Pnv No.95/Ferrous Fum/Folic AC [ Vitamin Tablet] 1 tab PO DAILY 09/20/18 History of Present Illness Patient complains of: Pain History of Present Illness: MAR MURCIA is a 27 year old female She presents with twins and uterine fibroids with some pains in the belly. Hospital Course Hospital Course: She was admitted and treated with indocin. A [facility] appt has also been made. She is doing much better today and is ready to go home. Follow up next week in the office. Physical Exam - Physical Exam Vital Signs: Temp Pulse Resp BP Pulse Ox 99.0 F 115 H 18 118/76 98 09/23/18 04:24 09/23/18 04:24 09/23/18 04:24 09/23/18 04:24 09/23/18 04:24 Intake & Output 09/22/18 09/23/18 09/24/18 06:59 06:59 06:59 Intake Total 3500 3770 1010 Balance 3500 3770 1010 Weight 78 kg General appearance: PRESENT: no acute distress, well-developed, well-nourished - Gynecological Exam Labia: normal Urethra: normal Introitus: normal Perineum: normal Vagina: normal Cervix: normal Cervix: normal - Obstetrical Exam External Genitalia: normal Vagina: normal Adhexa: normal Result Laboratory Results: 09/21/18 07:15 09/20/18 04:45 Impressions: Obstetrics Ultrasound 09/20/18 03:20 IMPRESSION: Twin living intrauterine fetuses as above. No gross acute abnormality noted. Abdomen/Pelvis CT 09/20/18 08:50 IMPRESSION: 1. Moderate volume ascites, of uncertain origin. There are no evident inflammatory findings within the abdomen. 2. Normal appendix. 3. Gravid uterus. 4. Multiple large, heterogeneous uterine fibroids, in keeping with findings of prior CT dated 2014. Plan Discharge Plan: Home with follow up next week. Plan MFM followup. Time Spent: Less than 30 Minutes
[2018-09-23 12:53] VITALS: BP 104/64
== END 2018-09-23 14:48 | disposition home or self-care (01) | DRG 833 ==
LOC: ER 02:20 → EH 12:42 → 2N 13:34
PROVIDERS: ADMIT Obstetrics & Gynecology; ATTEND Obstetrics & Gynecology
PROC: 4A1HXCZ Monitoring of Products of Conception, Cardiac Rate, External Approach (ICD-10-PCS; principal; 2018-09-20)
PROC: 3E02340 Introduction of Influenza Vaccine into Muscle, Percutaneous Approach (ICD-10-PCS; 2018-09-23)
DX: O34.12 Maternal care for benign tumor of corpus uteri, second trimester (principal); D25.1 Intramural leiomyoma of uterus; D25.2 Subserosal leiomyoma of uterus; R10.9 Unspecified abdominal pain; Z3A.16 16 weeks gestation of pregnancy; O30.042 Twin pregnancy, dichorionic/diamniotic, second trimester; Z23 Encounter for immunization
CPT/HCPCS: 36415; 74177; 76805; 76810; 76815; 80053; 80307; 81001; 83690; 84702; 85025; 85027; 87210; 87491; 87591; 90471; 90686; 96361; 96374; 99291; G0008; J0696; J2270; J2300; J2405; J3010; J3490; J7030; J7120

== ENCOUNTER 2018-11-19 20:39 | Outpatient (CLI) | payer OTHER, MEDICAID ==
[2018-11-19] MEDS ORDERED: MAGNESIUM SULFATE 4 GM/100 ML RTUPB IV ONE ×3 (21:22→21:50)
[2018-11-19] MEDS ORDERED: MAGNESIUM SULFATE 20 GM/500 ML RTUINJ IV ONE (21:22)
[2018-11-19] MEDS ORDERED: BETAMET ACET/BETAMET NA INJ 6 MG/1 ML ONE (21:25)
[2018-11-19] MEDS ORDERED: AMPICILLIN SOD INJ 2 GM VIAL ONE (21:25)
[2018-11-19] MEDS ORDERED: AMPICILLIN SOD INJ 1 GM VIAL ONE (21:25)
[2018-11-19 21:30] LABS: APPEARANCE,URINE CLEAR; BILIRUBIN,URINE NEGATIVE (NEGATIVE); COLOR,URINE YELLOW; GLUCOSE, URINE NEGATIVE (NEGATIVE); KETONES,URINE NEGATIVE (NEGATIVE); LEUKOCYTE ESTERASE,URINE NEGATIVE (NEGATIVE); NITRITE,URINE NEGATIVE (NEGATIVE); PROTEIN,URINE NEGATIVE (NEGATIVE); URINE SPECIFIC GRAVITY 1.013; UROBILINOGEN,URINE NEGATIVE mg/dL (<2.0)
[2018-11-19] MEDS ORDERED: MAGNESIUM SULFATE 20 GM/500 ML RTUINJ IV PRN (21:37)
[2018-11-19] MEDS ORDERED: AMPICILLIN SOD INJ 1 GM VIAL IV ONE (21:38)
[2018-11-19 21:41] LABS: URINE AMPHETAMINES SCREEN NEGATIVE; URINE BARBITURATES SCREEN NEGATIVE; URINE BENZODIAZEPINES SCREEN NEGATIVE; URINE COCAINE SCREEN NEGATIVE; URINE MARIJUANA (THC) SCREEN NEGATIVE; URINE METHADONE SCREEN NEGATIVE; URINE PHENCYCLIDINE SCREEN NEGATIVE
--- NOTE | 2018-11-19 21:46 | PDOC TRANSFER SUMMARY ---
General Admission Date: 11/19/18 Transfer Date: 11/19/18 Accepting Facility: [facility] Accepting Physician: Dr Rosa Resuscitation Status: Full Code - Transfer Diagnosis (1) contractions Is this a current diagnosis for this admission?: Yes (2) Abdominal pain during Is this a current diagnosis for this admission?: Yes (3) Uterine fibroids affecting in second trimester Is this a current diagnosis for this admission?: Yes - Transfer Medications Home Medications: Multivitamin with Minerals [Hair, Skin and Nails] 1 tab PO DAILY 09/20/18 Pnv No.95/Ferrous Fum/Folic AC [ Vitamin Tablet] 1 tab PO DAILY 09/20/18 - Allergies Allergies/Adverse Reactions: No Known Allergies Allergy (Verified 10/22/17 13:44) Hospital Course Hospital Course: The pt is a 27 yo now at 25 wks coming in with very severe contractions starting at 4 pm today. She was with di/di twins but one of the twins has in utero earlier in . Physical Exam General appearance: PRESENT: severe distress Head exam: PRESENT: atraumatic, normocephalic Neck exam: ABSENT: carotid bruit, JVD, lymphadenopathy, thyromegaly Cardiovascular exam: PRESENT: RRR. ABSENT: diastolic murmur, rubs, systolic murmur Pulses: PRESENT: normal dorsalis pedis pul GI/Abdominal exam: PRESENT: other - gravid Gentrourinary exam: PRESENT: other - The cervix appears closed and is without leaking Extremities exam: PRESENT: full ROM. ABSENT: calf tenderness, clubbing, pedal edema Neurological exam: PRESENT: alert, awake, oriented to person, oriented to place, oriented to time, oriented to situation, CN II-XII grossly intact. ABSENT: motor sensory deficit Results Impressions: Sono shows adequate fluid and the baby is in footling breech position. The placenta is anterior. Plan Discharge Plan: Plan transfer to tertiary care. We will start on Mg SO4, steroids and antibiotics.
[2018-11-19] MEDS ORDERED: BETAMET ACET/BETAMET NA INJ 6 MG/1 ML IM ONE (21:57)
[2018-11-19] MEDS ORDERED: RINGERS SOLUTION,LACTATED 1,000 ML IV PRN (22:05)
[2018-11-19] MEDS ORDERED: RINGERS SOLUTION,LACTATED 1,000 ML IV ONE (22:05)
== END 2018-11-19 23:43 | disposition short-term general hospital (02) ==
LOC: LC 20:39
PROVIDERS: ATTEND Obstetrics & Gynecology
PROC: 4A1HXCZ Monitoring of Products of Conception, Cardiac Rate, External Approach (ICD-10-PCS; principal; 2018-11-19)
DX: O60.02 Preterm labor without delivery, second trimester (principal); O36.4XX0 Maternal care for intrauterine death, not applicable or unspecified; O30.042 Twin pregnancy, dichorionic/diamniotic, second trimester; O34.12 Maternal care for benign tumor of corpus uteri, second trimester; D25.9 Leiomyoma of uterus, unspecified; Z3A.25 25 weeks gestation of pregnancy
CPT/HCPCS: 59025; 94760; 96372; 81001; 80307; J3475 ×2; J0290; J0702

== ENCOUNTER 2018-12-15 06:40 | Outpatient (CLI) | payer OTHER, MEDICAID ==
[2018-12-15 07:36] LABS: APPEARANCE,URINE CLEAR; BILIRUBIN,URINE NEGATIVE (NEGATIVE); COLOR,URINE YELLOW; GLUCOSE, URINE NEGATIVE (NEGATIVE); KETONES,URINE NEGATIVE (NEGATIVE); LEUKOCYTE ESTERASE,URINE NEGATIVE (NEGATIVE); NITRITE,URINE NEGATIVE (NEGATIVE); PROTEIN,URINE NEGATIVE (NEGATIVE); URINE SPECIFIC GRAVITY 1.013; UROBILINOGEN,URINE NEGATIVE mg/dL (<2.0)
[2018-12-15 08:02] LABS: URINE AMPHETAMINES SCREEN NEGATIVE; URINE BARBITURATES SCREEN NEGATIVE; URINE BENZODIAZEPINES SCREEN NEGATIVE; URINE COCAINE SCREEN NEGATIVE; URINE MARIJUANA (THC) SCREEN NEGATIVE; URINE METHADONE SCREEN NEGATIVE; URINE PHENCYCLIDINE SCREEN NEGATIVE
== END 2018-12-15 08:42 | disposition home or self-care (01) ==
LOC: LC 06:40
PROVIDERS: ATTEND Obstetrics & Gynecology
PROC: 4A1HXCZ Monitoring of Products of Conception, Cardiac Rate, External Approach (ICD-10-PCS; principal; 2018-12-15)
DX: O47.03 False labor before 37 completed weeks of gestation, third trimester (principal); Z3A.28 28 weeks gestation of pregnancy
CPT/HCPCS: 80307; 81001

== ENCOUNTER → 2019-01-23 | Outpatient (CLI) | payer OTHER, MEDICAID ==
[2019-01-23 16:52] LABS: HEMATOCRIT 29.2 % (36.0-47.0); HEMOGLOBIN 9.4 g/dL (12.0-15.5); MEAN CORPUSCULAR HEMOGLOBIN 24.2 pg (27.0-33.4); MEAN CORPUSCULAR VOLUME 76 fl (80-97); PLATELET COUNT 190 10^3/uL (150-450); RED BLOOD COUNT 3.86 10^6/uL (3.72-5.28); RED CELL DISTRIBUTION WIDTH 16.7 % (11.5-14.0); WHITE BLOOD COUNT 10.9 10^3/uL (4.0-10.5)
[2019-01-23 17:08] LABS: ASPARTATE AMINO TRANSFERASE 11 U/L (14-36); URIC ACID 3.4 mg/dL (2.5-6.2)
[2019-01-23 17:13] LABS: UR PRO/CREAT RATIO RESULT 0.2 mg/mg (0.0-0.2); URINE CREATININE 58.3 mg/dL (16-327); URINE PROTEIN 13.6 mg/dL (<12)
== END ==
LOC: OD 15:06
PROVIDERS: ATTEND Registered Nurse Women's Health Care, Ambulatory
DX: O16.3 Unspecified maternal hypertension, third trimester (principal); Z3A.00 Weeks of gestation of pregnancy not specified
CPT/HCPCS: 36415; 82565; 82570; 83615; 84156; 84450; 84550; 85027

== ENCOUNTER 2019-01-26 17:17 | Outpatient (CLI) | payer OTHER, MEDICAID | END 2019-01-26 19:29 | disposition home or self-care (01) | LOC: LC 17:17 | PROVIDERS: ATTEND Obstetrics & Gynecology | PROC: 4A1HXCZ Monitoring of Products of Conception, Cardiac Rate, External Approach (ICD-10-PCS; principal; 2019-01-26) | DX: Z34.93 Encounter for supervision of normal pregnancy, unspecified, third trimester (principal); Z3A.34 34 weeks gestation of pregnancy | CPT/HCPCS: 59025 ==

== ENCOUNTER 2019-03-05 16:32 | Emergency (ER) | payer OTHER, MEDICAID ==
--- NOTE | 2019-03-05 17:02 | ER Document Report ---
ED Medical Screen (RME) - General Chief Complaint: Post Problem Stated Complaint: POST OP COMPLICATIONS Time Seen by Provider: 03/05/19 16:55 Primary Care Provider: MICA WERNER NP [Primary Care Provider] - Follow up as needed Mode of Arrival: Wheelchair Information source: Patient Notes: Patient presents emergency department with report of recent March 01. Reports she was discharged with Percocet and ibuprofen. She has been taking those medications since she left. She reports increased pain cannot get comfortable. Also reports legs are tingling. Also reports pain with void, back pain, lightheaded. Reports her flow is normal. Reports her incision looks the same. No signs of infection no drainage. Patient is not breast- feeding. Patient did received blood transfusion during her admission. No complaints of fever vomiting or diarrhea. I have greeted and performed a rapid initial assessment of this patient. A com prehensive ED assessment and evaluation of the patient, analysis of test results and completion of the medical decision making process will be conducted by additional ED providers. Dictation of this chart was performed using voice recognition software; therefore, there may be some unintended grammatical errors. TRAVEL OUTSIDE OF THE [place] 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 Infectious Medical History: Denies: Hx HIV Past Surgical History: Reports: Hx Section - Immunizations Immunizations up to date: No Hx Diphtheria, Pertussis, Tetanus Vaccination: Yes History of Influenza Vaccine for 06/2017 - 11/2017 Season: Yes Influenza Administration Date for 06/2017 - 11/2017 Season: 06/20/18 Physical Exam - Vital signs Vitals: Temp Pulse Resp BP Pulse Ox 98.5 F 86 16 145/94 H 97 03/05/19 16:40 03/05/19 16:40 03/05/19 16:40 03/05/19 16:40 03/05/19 16:40 Course - Vital Signs Vital signs: Temp Pulse Resp BP Pulse Ox 98.5 F 86 16 145/94 H 97 03/05/19 16:40 03/05/19 16:40 03/05/19 16:40 03/05/19 16:40 03/05/19 16:40 Doctor's Discharge - Discharge Referrals: MICA WERNER, WARPER CREELER [Primary Care Provider] - Follow up as needed
[2019-03-05 17:31] LABS: ABSOLUTE BASOPHILS # (AUTO) 0.1 10^3/uL (0.0-0.2); ABSOLUTE EOSINOPHILS # (AUTO) 0.1 10^3/uL (0.0-0.6); ABSOLUTE LYMPHOCYTES (AUTO) 1.4 10^3/uL (0.5-4.7); ABSOLUTE MONOCYTES (AUTO) 0.5 10^3/uL (0.1-1.4); ABSOLUTE NEUT (AUTO) 6.9 10^3/uL (1.7-8.2); BASOPHILS % (AUTO) 0.6 % (0-2); EOSINOPHILS % (AUTO) 1.3 % (0-6); HEMATOCRIT 28.6 % (36.0-47.0); HEMOGLOBIN 9.4 g/dL (12.0-15.5); LYMPHOCYTES % (AUTO) 15.3 % (13-45); MEAN CORPUSCULAR HEMOGLOBIN 25.9 pg (27.0-33.4); MEAN CORPUSCULAR VOLUME 79 fl (80-97); MONOCYTES % (AUTO) 5.7 % (3-13); PLATELET COUNT 230 10^3/uL (150-450); RED BLOOD COUNT 3.64 10^6/uL (3.72-5.28); RED CELL DISTRIBUTION WIDTH 17.6 % (11.5-14.0); SEGMENTED NEUTROPHILS % (AUTO) 77.1 % (42-78); TOTAL CELLS COUNTED % (AUTO) 100 %; WHITE BLOOD COUNT 8.9 10^3/uL (4.0-10.5)
[2019-03-05 17:46] LABS: APPEARANCE,URINE CLEAR; BILIRUBIN,URINE NEGATIVE (NEGATIVE); COLOR,URINE YELLOW; GLUCOSE, URINE NEGATIVE (NEGATIVE); KETONES,URINE NEGATIVE (NEGATIVE); LEUKOCYTE ESTERASE,URINE NEGATIVE (NEGATIVE); NITRITE,URINE NEGATIVE (NEGATIVE); PROTEIN,URINE NEGATIVE (NEGATIVE); URINE SPECIFIC GRAVITY 1.023; UROBILINOGEN,URINE NEGATIVE mg/dL (<2.0)
[2019-03-05 17:48] LABS: ALANINE AMINOTRANSFERASE 23 U/L (9-52); ALBUMIN 3.7 g/dL (3.5-5.0); ALKALINE PHOSPHATASE 78 U/L (38-126); ANION GAP 9 (5-19); ASPARTATE AMINO TRANSFERASE 20 U/L (14-36); BILIRUBIN,DIRECT 0.2 mg/dL (0.0-0.4); BILIRUBIN,TOTAL 0.4 mg/dL (0.2-1.3); BLOOD UREA NITROGEN 11 mg/dL (7-20); CALCIUM 9.7 mg/dL (8.4-10.2); CARBON DIOXIDE 26 mmol/L (22-30); CHLORIDE 102 mmol/L (98-107); GLUCOSE 93 mg/dL (75-110); POTASSIUM 3.8 mmol/L (3.6-5.0); SODIUM 136.7 mmol/L (137-145); TOTAL PROTEIN 6.7 g/dL (6.3-8.2)
[2019-03-05] MEDS ORDERED: OXYCODONE-ACETAMINOPHEN 5-325 MG TABLET PO ONE (19:07)
--- NOTE | 2019-03-05 19:35 | RADIOLOGY REPORT (SQ) ---
EXAM DESCRIPTION: ACUTE ABDOMEN SERIES COMPLETED DATE/TIME: 03/05/2019 7:27 pm REASON FOR STUDY: abdominal pain COMPARISON: None. NUMBER OF VIEWS: Three views. TECHNIQUE: Frontal chest, supine abdomen and upright/decubitus abdomen radiographic images acquired. LIMITATIONS: None. FINDINGS: CHEST: Lungs clear of infiltrates. FREE AIR: None. No abnormal gas collections. BOWEL GAS PATTERN: Nonobstructive pattern. No dilated loops or air fluid levels. CONSTIPATION: mild. CALCIFICATIONS: No suspicious calcifications. HARDWARE: None in the abdomen. SOFT TISSUES: No gross mass or suggestion of organomegaly. BONES: No acute fracture. No worrisome bone lesions. OTHER: No other significant finding. IMPRESSION: NO RADIOGRAPHIC EVIDENCE FOR ACUTE ABDOMINAL DISEASE. CONSTIPATION. TECHNICAL DOCUMENTATION: JOB ID: [id number] [id number] 2010 [employer]- All Rights Reserved Reading location - IP/workstation name: [email or web address]
--- NOTE | 2019-03-05 19:49 | ER Document Report ---
ED GI/ - General Chief Complaint: Post Problem Stated Complaint: POST OP COMPLICATIONS Time Seen by Provider: 03/05/19 16:55 Primary Care Provider: [facility] [Provider Group] - Follow up as needed MICA WERNER NP [NO LOCAL MD] - Follow up as needed Mode of Arrival: Wheelchair Information source: Patient Notes: 28-year-old female presented to ED for complaint of abdominal pain for the last couple days. She states she had a on March 01 and was discharged on Wednesday and is been taking her Percocet and ibuprofen. She states she is been taking the medicines as prescribed but she cannot get comfortable. She states she is not breast-feeding at this time. She states the pain is very sharp and generalized. She states her vaginal bleeding is normal for a post as this is her . She denies any fevers nausea or vomiting. She states she did have a blood transfusion during her admission due to anemia. Her incisional site is clean no redness no drainage no discomfort at this site. TRAVEL OUTSIDE OF THE [place] IN LAST 30 DAYS: No - HPI Patient complains to provider of: Abdominal pain - Generalized on March 01 Onset: Yesterday Timing/Duration: Gradual, Worse Quality of pain: Sharp Severity at maximum: Severe Severity in ED: Severe Pain Level: 5 Vaginal bleeding (Compared to normal period): Similar - Post Associated symptoms: Other - Sharp abdominal pain starting yesterday March 01 Exacerbated by: Movement, Walking Relieved by: Denies Similar symptoms previously: No Recently seen / treated by doctor: Yes - Related Data Allergies/Adverse Reactions: No Known Allergies Allergy (Verified 11/19/18 21:42) Past Medical History - General Information source: Patient - Social History Smoking Status: Never Smoker Chew tobacco use (# tins/day): No Frequency of alcohol use: None Drug Abuse: None Lives with: Family Family History: DM, Hypertension, Malignancy Patient has suicidal ideation: No Patient has homicidal ideation: No - Past Medical History Cardiac Medical History: Reports: Hx Hypertension - gestational Pulmonary Medical History: Reports: None EENT Medical History: Reports: None Neurological Medical History: Reports: None Endocrine Medical History: Reports: None Renal/ Medical History: Reports: None Malignancy Medical History: Reports: None GI Medical History: Reports: None Musculoskeletal Medical History: Reports None Skin Medical History: Reports None Psychiatric Medical History: 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 Traumatic Medical History: Reports: None Infectious Medical History: Reports: None Past Surgical History: Reports: Hx Section - X2-second on March 01, 2019 - Immunizations Immunizations up to date: No Hx Diphtheria, Pertussis, Tetanus Vaccination: Yes - 2017 Review of Systems - Review of Systems Constitutional: No symptoms reported EENT: No symptoms reported Cardiovascular: No symptoms reported Respiratory: No symptoms reported Gastrointestinal: No symptoms reported Genitourinary: No symptoms reported Female Genitourinary: No symptoms reported Musculoskeletal: No symptoms reported Skin: No symptoms reported Hematologic/Lymphatic: No symptoms reported Neurological/Psychological: No symptoms reported Physical Exam - Vital signs Vitals: Temp Pulse Resp BP Pulse Ox 98.5 F 86 16 145/94 H 97 03/05/19 16:40 03/05/19 16:40 03/05/19 16:40 03/05/19 16:40 03/05/19 16:40 Interpretation: Normal - General General appearance: Appears well, Alert - HEENT Head: Normocephalic, Atraumatic Eyes: Normal Pupils: PERRL - Respiratory Respiratory status: No respiratory distress Chest status: Nontender Breath sounds: Normal Chest palpation: Normal - Cardiovascular Rhythm: Regular Heart sounds: Normal auscultation Murmur: No - Abdominal Inspection: Other - Surgical scar from March 01 healing appropriately no redness no drainage Distension: Distended - Recent Bowel sounds: Hyperactive Tenderness: Tender - Generalized tenderness Organomegaly: No organomegaly - Back Back: Normal, Nontender - Extremities General upper extremity: Normal inspection, Nontender, Normal color, Normal ROM, Normal temperature General lower extremity: Normal inspection, Nontender, Normal color, Normal ROM, Normal temperature, Normal weight bearing. No: Elizabeth's sign - Neurological Neuro grossly intact: Yes Cognition: Normal Orientation: AAOx4 Vicky Coma Scale Eye Opening: Spontaneous [place] Coma Scale Verbal: Oriented Vicky Coma Scale Motor: Obeys Commands [place] Coma Scale Total: 15 Speech: Normal Motor strength normal: LUE, RUE, LLE, RLE Sensory: Normal - Psychological Associated symptoms: Normal affect, Normal mood - Skin Skin Temperature: Warm Skin Moisture: Dry Skin Color: Normal Course - Re-evaluation Re-evalutation: 03/06/19 01:[address] Zhang before I discharge the patient to ensure that mag citrate was safe for constipation 4 days after . Patient was also instructed to increase activity decrease use of Percocet increase walking and fluids. Diet instructions given to increase fiber. Patient and verbalized understanding and agreement with treatment plan - Vital Signs Vital signs: Temp Pulse Resp BP Pulse Ox 98.5 F 86 16 144/88 H 97 03/05/19 16:40 03/05/19 16:40 03/05/19 16:40 03/05/19 20:07 03/05/19 16:40 - Laboratory Result Diagrams: 03/05/19 17:15 03/05/19 17:15 Laboratory results interpreted by me: 03/05/19 03/05/19 03/05/19 17:15 17:15 17:15 RBC 3.64 L Hgb 9.4 L Hct 28.6 L MCV 79 L MCH 25.9 L RDW 17.6 H Sodium 136.7 L Urine Blood LARGE H - Diagnostic Test Radiology reviewed: Image reviewed, Reports reviewed Discharge - Discharge Clinical Impression: Abdominal pain Qualifiers: Abdominal location: generalized Qualified Code(s): R10.84 - Generalized abdominal pain Condition: Stable Disposition: HOME, SELF-CARE Additional Instructions: ABDOMINAL PAIN: There are many causes of abdominal pain. Pain can mean a serious problem requiring surgery (such as appendicitis). It can also be an innocent problem that goes away on its own (such as a viral infection). Often, time must pass to determine the cause of pain. The physician does not feel that hospitalization is necessary, at present. Things may change within the next 24 hours. Call the doctor or come back for re- examination if any problems occur, such as: (1) Pain that becomes more severe, steady, or becomes concentrated in one specific area. Also, pain that is more severe with movement or coughing. (2) Vomiting that persists or becomes more frequent. (3) Blood in the vomitus, urine, or bowel movements. Blood in the stool may have a tarry or black appearance. (4) Shaking chills or fever greater than 100 degrees F. (5) The abdomen becomes more distended or swollen. (6) Bowel movements cease. (7) Failure to improve as expected. NORMAL EXAM AND WORKUP: At this time, your examination and workup show no significant abnormality. No significant abnormal physical findings are noted. All laboratory, EKG, and imaging (x-ray, CT scans, ultrasound) studies that were ordered show no significant abnormality. Although your examination and all studies that were ordered showed no significant abnormal finding, there are no examinations and no studies that are 100% accurate. There is always the possibility that some abnormality could exist and not be detected with physical examination or within the limits and capabilities of laboratory and other studies. You should return or follow up as you were instructed on your visit today for further evaluation if your symptoms do not resolve. CONSTIPATION: Constipation is a common problem. It is especially likely as you get older. Constipation is a common cause of abdominal pain, but sometimes causes no symptoms at all. Causes of constipation include certain medications, dehydration, diets, inactivity, and low-fiber intake. Rarely, it can be a symptom of underlying disease. The physician has evaluated you for this. Avoid constipation by eating a diet high in fiber, fruits, and vegetables. Drink plenty of liquids. Get regular exercise. If possible, avoid constipating medicines like narcotic pain medication. Some vitamin tablets can cause constipation. Stool softeners may be needed for difficult cases. An excellent stool softener is Konsyl which is available at [employer], and [employer]. Just add a teaspoon to a glass of pineapple or orange juice daily or twice a day if needed. Laxatives are useful for occasional constipation. You should use them only when necessary. Too-frequent use can make your bowels dependent on them. Some over the counter laxatives available without prescription are: Milk of Magnesia, 1-2 tablespoons twice a day Dulcolax, 5 mg pill or 10 mg suppository. Citrate of Magnesia, 4-5 ounces a day for a day or two For acute constipation, Fleet's Enemas and Dulcolax suppositories are helpful. Chronic, marine oil terminal superintendent use of laxatives or enemas is not a good idea. Your bowel may become dependant on them. You do not need to have a bowel movement every day. Many people do fine with a bowel movement every three or four days. You should call your doctor or return for re-evaluation if you pass blood in the stool, or if you develop fever or increasing abdominal pain. BULK LAXATIVES: Bulk laxatives make the stool softer and bulkier. They're useful for preventing constipation. You can choose between psyllium, methylcellulose, and polycarbophil. They are available without a prescription. Psyllium brand names include Konsyl, Metamucil, Perdiem, Effer-Syllium and Hydrocil. It's available as powder, flavored drink powder, or chewable. The usual dose of psyllium powder is one heaping teaspoon in water each morning, increasing to twice a day if needed. Barron juice can disguise the slightly grainy texture. Methylcellulose is marketed as Citrucel and other brands. The average dose is two grams in a cup of water one to three times a day. Polycarbophil is marketed as Fiber-Con. Take two tablets with a cup of water one to three times a day. LAXATIVE: A laxative agent has been prescribed for your condition. This should result in passage of stool within 12 hours. Some mild intestinal cramping is common as the hard stool begins to move. You may have loose or runny stools for a short time. Contact your doctor if there is severe cramping, vomiting, or passage of blood. Return for further care if this medicine fails to improve your condition. FOLLOW-UP CARE: If you have been referred to a physician for follow-up care, call the physicians office for an appointment as you were instructed or within the next two days. If you experience worsening or a significant change in your symptoms, notify the physician immediately or return to the Emergency Department at any ti me for re-evaluation. Forms: Elevated Blood Pressure Referrals: MICA WERNER NP [NO LOCAL MD] - Follow up as needed [facility] [Provider Group] - Follow up as needed
[2019-03-05] MEDS ORDERED: MAGNESIUM CITRATE 296 ML BOTTLE PO ONE (19:53)
[2019-03-05 20:08] VITALS: BP 144/88
== END 2019-03-05 20:42 | disposition home or self-care (01) ==
LOC: ER 16:32
DX: O90.89 Other complications of the puerperium, not elsewhere classified (principal); R10.84 Generalized abdominal pain; Z98.890 Other specified postprocedural states
CPT/HCPCS: 99283; 36415; 87086; 85025; 87088; 80053; 81001; 87186; 74022; J3490

== ENCOUNTER 2019-06-11 18:12 | Emergency (ER) | payer OTHER, MEDICAID ==
[2019-06-11] MEDS ORDERED: IBUPROFEN 800 MG TABLET PO ONE (18:54)
--- NOTE | 2019-06-11 18:56 | ER Document Report ---
ED Medical Screen (RME) - General Stated Complaint: COUGH,BODYACHES Time Seen by Provider: 06/11/19 18:51 Mode of Arrival: Ambulatory Information source: Patient Notes: This 28-year-old female presents emergency department with complaints of body aches and headache for about a week. Complains of sore throat reports her stepson had strep throat 2 weeks ago. Denies fever vomiting diarrhea. Reports she is voiding without problems and eating drinking bowel movement without problems.. Denies pain with void. Denies rash. Reports she took daytime flu medicine without relief of symptoms. Patient speaking in a clear voice good airway. I have greeted and performed a rapid initial assessment of this patient. A comprehensive ED assessment and evaluation of the patient, analysis of test results and completion of the medical decision making process will be conducted by additional ED providers. Dictation of this chart was performed using voice recognition software; therefore, there may be some unintended grammatical errors. TRAVEL OUTSIDE OF THE [place] 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
[2019-06-11 19:47] LABS: A TYPE INFLUENZA AG NEGATIVE (NEGATIVE); B INFLUENZA AG NEGATIVE (NEGATIVE)
[2019-06-11 20:32] VITALS: BP 152/102
--- NOTE | 2019-06-11 20:43 | ER Document Report ---
HPI - HPI Time Seen by Provider: 06/11/19 18:51 Pain Level: 5 Context: Patient is a 28-year-old female who presents the emergency department with a chief complaint of a headache and body aches for the past week. She also states that her stepson had strep 2 weeks ago. Patient has been a sore throat. Patient also states that she has hypertension, but had her medications changed recently and is going to pick up and delivery driver her blood pressure medication in the morning. She has not taken her blood pressure medicine in the past few days. Her blood pressure is elevated here in the emergency department. - CONSTITUTIONAL Constitutional: REPORTS: Chills. DENIES: Fever - EENT EENT: REPORTS: Sore Throat. DENIES: Ear Pain, Nasal Drainage-Clear, Nasal Drainage-Purulent, Congestion, Eye problems - NEURO Neurology: REPORTS: Headache - CARDIOVASCULAR Cardiovascular: DENIES: Chest pain - RESPIRATORY Respiratory: DENIES: Trouble Breathing, Coughing - GASTROINTESTINAL Gastrointestinal: DENIES: Abdominal Pain, Nausea, Patient vomiting - URINARY Urinary: DENIES: Dysuria - REPRODUCTIVE Reproductive: DENIES: : - MUSCULOSKELETAL Musculoskeletal: DENIES: Extremity pain - DERM Skin Color: Normal Skin Problems: None Past Medical History - General Information source: Patient - Social History Smoking Status: Never Smoker Chew tobacco use (# tins/day): No Frequency of alcohol use: None Drug Abuse: None Family History: DM, Hypertension, Malignancy Patient has suicidal ideation: No Patient has homicidal ideation: No - Past Medical History Cardiac Medical History: Reports: Hx Hypertension - gestational Denies: Hx Heart Attack Renal/ Medical History: Denies: Hx Kidney Stones, Hx Ovarian Cysts, Hx Peritoneal Dialysis, Hx Pelvic Inflammatory Disease Malignancy Medical History: Denies: Hx Breast Cancer, Hx Cervical Cancer, Hx Ovarian Cancer GI Medical History: Denies: Hx Gastroesophageal Reflux Disease, Hx Hiatal Hernia, Hx Ulcer Psychiatric Medical History: 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 IN LAST 30 DAYS: No - HEENT HEENT: Atraumatic, Normocephalic, PERRLA, Pharyngeal Exudate, Pharyngeal Tenderness, Pharyngeal Erythema. negative: Conjuctival Injection, Tympanic Membrane Red, Tympanic Membrane Bulging - NECK Neck: Normal Inspection, Supple, Lymphadenopathy-Left, Lymphadenopathy-Right - RESPIRATORY Respiratory: Breath Sounds Normal, No Respiratory Distress - CARDIOVASCULAR Cardiovascular: Regular Rate, Regular Rhythm Pulses: Normal: Radial - MUSCULOSKELETAL/EXTREMETIES Musculoskeletal/Extremeties: FROM - NEURO Level of Consciousness: Awake, Alert, Appropriate Motor/Sensory: No Motor Deficit, No Sensory Deficit - DERM Integumentary: Warm, Dry, No Rash Course - Re-evaluation Re-evalutation: 06/11/19 20:50 Patient's blood pressure is elevated, but she has been out of her high blood pressure medication. She is to pick it up in the morning. She will also be started on amoxicillin and prednisone to help with her exudative pharyngitis. Very low suspicion for a peritonsillar abscess. Patient is still able to eat and drink. She is inquiring about sleep medication and I advised that she take Benadryl, as well help her sleep. Follow-up precautions were given. Verbal discharge instructions were given to the patient. They verbalized understanding. They are stable for discharge. - Vital Signs Vital signs: Temp Pulse Resp BP Pulse Ox 98.6 F 85 16 152/102 H 97 06/11/19 20:30 06/11/19 20:30 06/11/19 20:30 06/11/19 20:30 06/11/19 20:30 Discharge - Discharge Clinical Impression: Sore throat, Exudative pharyngitis Condition: Stable Disposition: HOME, SELF-CARE Additional Instructions: You are seen today in the emergency department for sore throat. You are being sent home with antibiotics and steroids. Please finish all of your medication as prescribed. Please follow-up with your primary care in regards to this visit. You can take Tylenol 1000 mg and ibuprofen 600 mg every 6 hours for your pain. If you have worsening symptoms, please return to the emergency department. Prescriptions: Amoxicillin Trihydrate [Amoxil 875 mg Tablet] 1 tab PO BID #14 tablet Prednisone [Deltasone 20 mg Tablet] 3 tab PO DAILY 5 Days tablet
== END 2019-06-11 20:50 | disposition home or self-care (01) ==
LOC: ER 18:12
DX: J02.9 Acute pharyngitis, unspecified (principal); I10 Essential (primary) hypertension; R51 Headache; Z20.818 Contact with and (suspected) exposure to other bacterial communicable diseases
CPT/HCPCS: 87070; 87804; 87880; 99283

== ENCOUNTER 2019-06-26 15:03 | Emergency (ER) | payer OTHER, MEDICAID ==
[2019-06-26 15:12] VITALS: BP 136/90
== END 2019-06-26 15:42 | disposition left against medical advice (07) ==
LOC: ER 15:03
DX: Z53.21 Procedure and treatment not carried out due to patient leaving prior to being seen by health care provider (principal); M79.606 Pain in leg, unspecified

== ENCOUNTER 2019-11-07 16:08 | Emergency (ER) | payer MEDICAID, OTHER ==
--- NOTE | 2019-11-07 17:32 | ER Document Report ---
ED Medical Screen (RME) - General Chief Complaint: Abdominal Pain Stated Complaint: ABDOMINAL PAIN,LEG PAIN,BACK PAIN Time Seen by Provider: 11/07/19 17:23 TRAVEL OUTSIDE OF THE [place] IN LAST 30 DAYS: No - HPI Notes: 11/07/19 17:31 28 yr old female presents to the emergency room for complaints of lower pelvic abdominal pain that started back 2 weeks ago radiates to her thighs. Patient is on control does not know when her last menstrual period was. Patient states right greater than left with her pain. 6 para 2 patient does have a history of fibroids denies any fevers or chills states she did have some vaginal spotting 2 weeks ago. Denies any nausea vomiting or diarrhea, no chest pain or shortness of breath. I have greeted and performed a rapid initial assessment of this patient. A comprehensive ED assessment and evaluation of the patient, analysis of test results and completion of the medical decision making process will be conducted by additional ED providers. PHYSICAL EXAMINATION: GENERAL: Well-appearing, well-nourished and in no acute distress. CV: s1, s2 regular LUNGS: No respiratory distress Musculoskeletal: Normal range of motion NEUROLOGICAL: Normal speech, normal gait. SKIN: Warm, Dry, normal turgor, no rashes or lesions noted. - Related Data Allergies/Adverse Reactions: No Known Allergies Allergy (Verified 11/07/19 17:20) Home Medications: hctz, zoloft, bcp Past Medical History - Social History Chew tobacco use (# tins/day): No Frequency of alcohol use: None Drug Abuse: None - Past Medical History Cardiac Medical History: Reports: Hx Hypertension - gestational Denies: Hx Heart Attack Renal/ Medical History: Denies: Hx Kidney Stones, Hx Ovarian Cysts, Hx Peritoneal Dialysis, Hx Pelvic Inflammatory Disease Malignancy Medical History: Denies: Hx Breast Cancer, Hx Cervical Cancer, Hx Ovarian Cancer GI Medical History: Denies: Hx Gastroesophageal Reflux Disease, Hx Hiatal Hernia, Hx Ulcer Psychiatric Medical History: 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
[2019-11-07 17:58] LABS: APPEARANCE,URINE CLEAR; BILIRUBIN,URINE NEGATIVE (NEGATIVE); COLOR,URINE STRAW; GLUCOSE, URINE NEGATIVE (NEGATIVE); KETONES,URINE NEGATIVE (NEGATIVE); LEUKOCYTE ESTERASE,URINE NEGATIVE (NEGATIVE); NITRITE,URINE NEGATIVE (NEGATIVE); PROTEIN,URINE NEGATIVE (NEGATIVE); URINE SPECIFIC GRAVITY 1.019; UROBILINOGEN,URINE NEGATIVE mg/dL (<2.0)
[2019-11-07 18:20] LABS: ABSOLUTE BASOPHILS # (AUTO) 0.1 10^3/uL (0.0-0.2); ABSOLUTE EOSINOPHILS # (AUTO) 0.1 10^3/uL (0.0-0.6); ABSOLUTE LYMPHOCYTES (AUTO) 2.2 10^3/uL (0.5-4.7); ABSOLUTE MONOCYTES (AUTO) 0.6 10^3/uL (0.1-1.4); ABSOLUTE NEUT (AUTO) 9.4 10^3/uL (1.7-8.2); BASOPHILS % (AUTO) 0.4 % (0-2); EOSINOPHILS % (AUTO) 0.5 % (0-6); HEMATOCRIT 38.3 % (36.0-47.0); HEMOGLOBIN 12.7 g/dL (12.0-15.5); LYMPHOCYTES % (AUTO) 18.2 % (13-45); MEAN CORPUSCULAR HEMOGLOBIN 28.2 pg (27.0-33.4); MEAN CORPUSCULAR HGB CONC 33.3 g/dL (32.0-36.0); MEAN CORPUSCULAR VOLUME 85 fl (80-97); MONOCYTES % (AUTO) 4.8 % (3-13); PLATELET COUNT 259 10^3/uL (150-450); RED BLOOD COUNT 4.52 10^6/uL (3.72-5.28); RED CELL DISTRIBUTION WIDTH 14.8 % (11.5-14.0); SEGMENTED NEUTROPHILS % (AUTO) 76.1 % (42-78); TOTAL CELLS COUNTED % (AUTO) 100 %; WHITE BLOOD COUNT 12.4 10^3/uL (4.0-10.5)
[2019-11-07 18:39] LABS: ALBUMIN 4.5 g/dL (3.5-5.0); ALKALINE PHOSPHATASE 48 U/L (38-126); ANION GAP 13 (5-19); ASPARTATE AMINO TRANSFERASE 17 U/L (14-36); BILIRUBIN,DIRECT 0.2 mg/dL (0.0-0.4); BILIRUBIN,TOTAL 0.4 mg/dL (0.2-1.3); BLOOD UREA NITROGEN 17 mg/dL (7-20); CALCIUM 9.6 mg/dL (8.4-10.2); CARBON DIOXIDE 25 mmol/L (22-30); CHLORIDE 99 mmol/L (98-107); GLUCOSE 91 mg/dL (75-110); POTASSIUM 3.9 mmol/L (3.6-5.0); TOTAL PROTEIN 8.1 g/dL (6.3-8.2)
--- NOTE | 2019-11-07 18:46 | RADIOLOGY REPORT (SQ) ---
EXAM DESCRIPTION: U/S NON OB PEL TV W/DOPPLER COMPLETED DATE/TIME: 11/07/2019 6:04 pm REASON FOR STUDY: R>L pelvic pain, hx of fibroids COMPARISON: None. TECHNIQUE: Dynamic and static grayscale images acquired of the pelvis via transvaginal approach and recorded on PACS. Additional selected color Doppler and spectral images recorded. LIMITATIONS: None. FINDINGS: UTERUS: The uterus measures 7.9 x 9.7 x 7.9 cm. The echotexture of the myometrium is hete rogeneous and there are several uterine fibroids; the largest measures 6.3 x 5.3 x 5.8 cm. ENDOMETRIAL STRIPE: Evaluation of the endometrium is limited due to the architectural distortion that results from the aforementioned fibroids. There is a trace amount of free fluid within the endometr ial canal. The endometrium is normal in thickness. CERVIX: The cervix measures 2.8 cm in length. RIGHT OVARY AND DOPPLER: Unable to visualize the right ovary. There is no right adnexal mass. LEFT OVARY AND DOPPLER: The left ovary measures 2.3 x 3.6 x 1.9 cm and on Doppler there is intact art erial inflow and venous outflow within the ovarian stroma. There is no adnexal mass. FREE FLUID: Trace amount of free fluid. OTHER: No other finding. IMPRESSION: 1. Uterine leiomyomata. 2. Non visualization of the right ovary. There is no right adnexal mass. 3. Normal appearance of the left ovary. 4. Trace amount of free fluid in the pelvis. TECHNICAL DOCUMENTATION: JOB ID: [id number] 2010 [employer]- All Rights Reserved Rev-02/04 Reading location - IP/workstation name: [email or web address]
--- NOTE | 2019-11-07 20:29 | ER Document Report ---
Entered by NISHA TELLO SCRIBE 11/07/192008 Acting as scribe for:RADHA PIPER DO ED GI/ - General Chief Complaint: Abdominal Pain Stated Complaint: ABDOMINAL PAIN,LEG PAIN,BACK PAIN Time Seen by Provider: 11/07/19 17:23 Mode of Arrival: Ambulatory Information source: Patient Notes: This 28-year-old female patient presents to the emergency department today with complaints of lower abdominal pain. Patient has a history of uterine fibroids and she thinks that these could be causing her pain today. Patient states she does not remember when her last period was stating that her control makes her "menstrual cycle crazy". Patient is nauseated but denies any other symptoms. TRAVEL OUTSIDE OF THE [place] IN LAST 30 DAYS: No - Related Data Allergies/Adverse Reactions: No Known Allergies Allergy (Verified 11/07/19 17:20) Home Medications: hctz, zoloft, bcp Past Medical History - General Information source: Patient - Social History Smoking Status: Never Smoker Cigarette use (# per day): No Chew tobacco use (# tins/day): No Frequency of alcohol use: None Drug Abuse: None Lives with: Family Family History: DM, Hypertension, Malignancy Patient has suicidal ideation: No Patient has homicidal ideation: No - Past Medical History Cardiac Medical History: Reports: Hx Hypertension - gestational Renal/ Medical History: Reports: Other - Hx uterine fibroids Psychiatric Medical History: 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 Past Surgical History: Reports: Hx Section - X2-second on March 01, 2019 - Immunizations Immunizations up to date: No Hx Diphtheria, Pertussis, Tetanus Vaccination: Yes - 2016 Review of Systems - Review of Systems Constitutional: No symptoms reported EENT: No symptoms reported Cardiovascular: No symptoms reported Respiratory: No symptoms reported Gastrointestinal: See HPI, Abdominal pain Genitourinary: No symptoms reported Female Genitourinary: No symptoms reported Musculoskeletal: No symptoms reported Skin: No symptoms reported Hematologic/Lymphatic: No symptoms reported Neurological/Psychological: No symptoms reported -: Yes All other systems reviewed and negative Physical Exam - Vital signs Vitals: Temp Pulse Resp BP Pulse Ox 98.5 F 94 16 126/77 H 98 11/07/19 16:14 11/07/19 16:14 11/07/19 16:14 11/07/19 16:14 11/07/19 16:14 - Notes Notes: Physical Exam: General: Alert, appears well. HEENT: Normocephalic. Atraumatic. PERRL. Extraocular movements intact. Oropharynx clear. Neck: Supple. Non-tender. Respiratory: No respiratory distress. Clear and equal breath sounds bilaterally. Cardiovascular: Regular rate and rhythm. Abdominal: Lower abdominal tenderness palpation. No distension. Normal Bowel Sounds. Back: No gross abnormalities. Extremities: Moves all four extremities. Upper extremities: Normal inspection. Normal ROM. Lower extremities: Normal inspection. No edema. Normal ROM. Neurological: Normal cognition. AAOx4. Normal speech. Psychological: Normal affect. Normal Mood. Skin: Warm. Dry. Normal color. Course - Vital Signs Vital signs: Temp Pulse Resp BP Pulse Ox 98.5 F 94 16 126/77 H 98 11/07/19 16:14 11/07/19 16:14 11/07/19 16:14 11/07/19 16:14 11/07/19 16:14 - Laboratory Result Diagrams: 11/07/19 18:01 11/07/19 18:01 Laboratory results interpreted by me: 11/07/19 18:01 WBC 12.4 H RDW 14.8 H Absolute Neuts (auto) 9.4 H - Diagnostic Test Radiology reviewed: Reports reviewed Discharge - Discharge Clinical Impression: Abdominal pain Qualifiers: Abdominal location: generalized Qualified Code(s): R10.84 - Generalized abdominal pain Condition: Good Disposition: HOME, SELF-CARE Instructions: Abdominal Pain ([facility]) Additional Instructions: Rest, fluids, please return here for any problems or any concerns. See the coding clerk doctor you see in follow up. Prescriptions: Naproxen [Naprosyn] 500 mg PO BID #30 tablet I personally performed the services described in the documentation, reviewed and edited the documentation which was dictated to the scribe in my presence, and it accurately records my words and actions.
[2019-11-07 20:53] VITALS: BP 119/76
== END 2019-11-07 21:00 | disposition home or self-care (01) ==
LOC: ER 16:08
DX: R10.84 Generalized abdominal pain (principal)
CPT/HCPCS: 36415; 76830; 80053; 81001; 81025; 83690; 85025; 93976; 99284

== ENCOUNTER 2019-11-24 12:43 | Emergency (ER) | payer OTHER ==
[2019-11-24] MEDS ORDERED: ACETAMINOPHEN 325 MG TABLET PO ONE (13:28)
[2019-11-24] MEDS ORDERED: ONDANSETRON 4 MG TAB.RAPDIS PO ONE (13:28)
--- NOTE | 2019-11-24 13:30 | ER Document Report ---
ED Medical Screen (RME) - General Chief Complaint: Abdominal Pain Stated Complaint: LOWER ABDOMINAL PAIN Time Seen by Provider: 11/24/19 13:27 Mode of Arrival: Ambulatory Information source: Patient Notes: 28-year-old female presented to ED for complaint of right lower quadrant abdominal pelvic pain since this morning. She states she is also had some nausea but no vomiting. She states the pain is cramping 3 out of 5. She states last menstrual period was November 13. She is alert oriented respirations regular nonlabored speaking in full sentences. I have greeted and performed a rapid initial assessment of this patient. A comprehensive ED assessment and evaluation of the patient, analysis of test results and completion of medical decision making process will be conducted by an additional ED providers. TRAVEL OUTSIDE OF THE [place] 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 Infectious Medical History: Denies: Hx HIV Past Surgical History: Reports: Hx Section - X2-second on March 01, 2019 - Immunizations Immunizations up to date: No Hx Diphtheria, Pertussis, Tetanus Vaccination: Yes - 2016 Physical Exam - Vital signs Vitals: Temp Pulse Resp BP Pulse Ox 98.1 F 100 16 129/74 H 98 11/24/19 12:46 11/24/19 12:46 11/24/19 12:46 11/24/19 12:46 11/24/19 12:46 Course - Vital Signs Vital signs: Temp Pulse Resp BP Pulse Ox 98.1 F 100 16 129/74 H 98 11/24/19 12:46 11/24/19 12:46 11/24/19 12:46 11/24/19 12:46 11/24/19 12:46
[2019-11-24 13:55] LABS: ABSOLUTE BASOPHILS # (AUTO) 0.1 10^3/uL (0.0-0.2); ABSOLUTE EOSINOPHILS # (AUTO) 0.1 10^3/uL (0.0-0.6); ABSOLUTE MONOCYTES (AUTO) 0.6 10^3/uL (0.1-1.4); ABSOLUTE NEUT (AUTO) 6.3 10^3/uL (1.7-8.2); BASOPHILS % (AUTO) 0.6 % (0-2); EOSINOPHILS % (AUTO) 0.7 % (0-6); HEMATOCRIT 35.4 % (36.0-47.0); HEMOGLOBIN 12.1 g/dL (12.0-15.5); LYMPHOCYTES % (AUTO) 22.3 % (13-45); MEAN CORPUSCULAR HEMOGLOBIN 28.9 pg (27.0-33.4); MEAN CORPUSCULAR HGB CONC 34.1 g/dL (32.0-36.0); MEAN CORPUSCULAR VOLUME 85 fl (80-97); MONOCYTES % (AUTO) 6.8 % (3-13); PLATELET COUNT 266 10^3/uL (150-450); RED BLOOD COUNT 4.17 10^6/uL (3.72-5.28); SEGMENTED NEUTROPHILS % (AUTO) 69.6 % (42-78); TOTAL CELLS COUNTED % (AUTO) 100 %
[2019-11-24 13:57] LABS: APPEARANCE,URINE SLIGHTLY-CLOUDY; BILIRUBIN,URINE NEGATIVE (NEGATIVE); COLOR,URINE YELLOW; GLUCOSE, URINE NEGATIVE (NEGATIVE); KETONES,URINE NEGATIVE (NEGATIVE); PROTEIN,URINE NEGATIVE (NEGATIVE); URINE SPECIFIC GRAVITY 1.013; UROBILINOGEN,URINE NEGATIVE mg/dL (<2.0)
[2019-11-24 14:11] LABS: ALBUMIN 4.6 g/dL (3.5-5.0); ALKALINE PHOSPHATASE 51 U/L (38-126); ANION GAP 10 (5-19); ASPARTATE AMINO TRANSFERASE 18 U/L (14-36); BILIRUBIN,TOTAL 0.5 mg/dL (0.2-1.3); BLOOD UREA NITROGEN 12 mg/dL (7-20); CALCIUM 10.3 mg/dL (8.4-10.2); CARBON DIOXIDE 27 mmol/L (22-30); CHLORIDE 103 mmol/L (98-107); GLUCOSE 78 mg/dL (75-110); POTASSIUM 4.4 mmol/L (3.6-5.0); TOTAL PROTEIN 8.1 g/dL (6.3-8.2)
--- NOTE | 2019-11-24 14:29 | RADIOLOGY REPORT (SQ) ---
EXAM DESCRIPTION: U/S NON-OB PELVIS TV W/O DOP COMPLETED DATE/TIME: 11/24/2019 2:07 pm REASON FOR STUDY: Right lower quadrant abdominal/pelvic pain COMPARISON: 11/07/2019 TECHNIQUE: Dynamic and static grayscale images acquired of the pelvis via transvaginal approach and recorded on PACS. Additional selected color Doppler and spectral images recorded. LIMITATIONS: None. FINDINGS: UTERUS: Uterus measures 7.6 x 4.3 x 6.8 cm. There are multiple scattered intramural fibro ids, some of which demonstrate internal calcifications. Largest intramural fibroid measures 4.0 x 3. 6 x 3.5 cm ENDOMETRIAL STRIPE: Endometrial stripe is visualized measuring 2.5 mm. No focal thickening. CERVIX: No nabothian cysts. RIGHT OVARY AND DOPPLER: Right ovary measures 3.3 x 3.6 x 2.3 cm. There is a simple appearing anecho ic cyst measuring 2.5 cm maximally. No worrisome masses. Normal arterial vascular flow without evide nce for torsion. LEFT OVARY AND DOPPLER: Left ovary measures 2.8 x 2.2 x 2.4 cm. No worrisome masses. Normal arterial vascular flow without evidence for torsion. FREE FLUID: Trace pelvic fluid, likely physiologic. OTHER: No other significant finding. IMPRESSION: 1. Leiomyomatous uterus, similar to prior. Largest fibroid measures up to 4.0 cm. 2. Right ovarian simple appearing cyst measuring 2.5 cm. No follow-up required. 3. Otherwise, unremarkable pelvic ultrasound. TECHNICAL DOCUMENTATION: JOB ID: [id number] 2010 [employer]- All Rights Reserved Rev Reading location - IP/workstation name: [email or web address]
[2019-11-24 16:26] VITALS: BP 114/70
--- NOTE | 2019-11-24 16:44 | ER Document Report ---
HPI - HPI Time Seen by Provider: 11/24/19 13:27 Pain Level: Denies Notes: 28-year-old female presented to ED for complaint of right lower quadrant abdominal pelvic pain since this morning. She states she is also had some nausea but no vomiting. She states the pain is cramping 3 out of 5. She states last menstrual period was November 13. She is alert oriented respirations regular nonlabored speaking in full sentences. - CONSTITUTIONAL Constitutional: DENIES: Fever, Chills - REPRODUCTIVE LMP: 11/13/19 Reproductive: DENIES: : Past Medical History - General Information source: Patient - Social History Smoking Status: Never Smoker Family History: DM, Hypertension, Malignancy Patient has suicidal ideation: No Patient has homicidal ideation: No - Past Medical History Cardiac Medical History: Reports: Hx Hypertension - gestational Denies: Hx Heart Attack Renal/ Medical History: Denies: Hx Kidney Stones, Hx Ovarian Cysts, Hx Peritoneal Dialysis, Hx Pelvic Inflammatory Disease Malignancy Medical History: Denies: Hx Breast Cancer, Hx Cervical Cancer, Hx Ovarian Cancer GI Medical History: Denies: Hx Gastroesophageal Reflux Disease, Hx Hiatal Hernia, Hx Ulcer Psychiatric Medical History: 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 Infectious Medical History: Denies: Hx HIV Past Surgical History: Reports: Hx Section - X2-second on March 01, 2019 - Immunizations Immunizations up to date: No Hx Diphtheria, Pertussis, Tetanus Vaccination: Yes - 2017 [employer] Provider Document - CONSTITUTIONAL Notes: PHYSICAL EXAMINATION: GENERAL: Well-appearing, well-nourished and in no acute distress. HEAD: Atraumatic, normocephalic. EYES: Pupils equal round and reactive to light, extraocular movements intact, conjunctiva are normal. ENT: Nares patent, oropharynx clear without exudates. Moist mucous membranes. NECK: Normal range of motion, supple without lymphadenopathy LUNGS: Breath sounds clear to auscultation bilaterally and equal. No wheezes rales or rhonchi. HEART: Regular rate and rhythm without murmurs ABDOMEN: Soft, nontender, nondistended abdomen. No guarding, no rebound. No masses appreciated. Female : deferred Musculoskeletal: Normal range of motion, no pitting or edema. No cyanosis. NEUROLOGICAL: Cranial nerves grossly intact. Normal speech, normal gait. Normal sensory, motor exams PSYCH: Normal mood, normal affect. SKIN: Warm, Dry, normal turgor, no rashes or lesions noted. - INFECTION CONTROL TRAVEL OUTSIDE OF THE [place] IN LAST 30 DAYS: No Course - Re-evaluation Re-evalutation: Laboratory 11/24/19 11/24/19 11/24/19 13:35 13:35 13:35 WBC 9.0 RBC 4.17 Hgb 12.1 Hct 35.4 L MCV 85 MCH 28.9 MCHC 34.1 RDW 14.0 Plt Count 266 Lymph % (Auto) 22.3 Elliott % (Auto) 6.8 Eos % (Auto) 0.7 Baso % (Auto) 0.6 Absolute Neuts (auto) 6.3 Absolute Lymphs (auto) 2.0 Absolute Monos (auto) 0.6 Absolute Eos (auto) 0.1 Absolute Basos (auto) 0.1 Seg Neutrophils % 69.6 Sodium 139.6 Potassium 4.4 Chloride 103 Carbon Dioxide 27 Anion Gap 10 BUN 12 Creatinine 0.88 Est GFR ( Amer) > 60 Est GFR (MDRD) Non-Af > 60 Glucose 78 Calcium 10.3 H Total Bilirubin 0.5 Direct Bilirubin 0.0 Neonat Total Bilirubin Not Reportable Neonat Direct Bilirubin Not Reportable Neonat Indirect Bili Not Reportable AST 18 ALT 9 Alkaline Phosphatase 51 Total Protein 8.1 Albumin 4.6 Beta HCG, Quant < 2.39 Total Beta HCG NEGATIVE Urine Color YELLOW Urine Appearance SLIGHTLY-CLOUDY Urine pH 8.0 Ur Specific [place] 1.013 Urine Protein NEGATIVE Urine Glucose (UA) NEGATIVE Urine Ketones NEGATIVE Urine Blood LARGE H Urine Nitrite (Reflex) NEGATIVE Urine Bilirubin NEGATIVE Urine Urobilinogen NEGATIVE Leukocyte Esterase Rfl NEGATIVE Urine RBC (Auto) 1 Urine WBC (Reflex) 2 Squamous Epi Cells Auto 21 Urine Mucus (Auto) RARE Urine Ascorbic Acid 20 H Transvaginal US 11/24/19 13:28 IMPRESSION: 1. Leiomyomatous uterus, similar to prior. Largest fibroid measures up to 4.0 cm. 2. Right ovarian simple appearing cyst measuring 2.5 cm. No follow-up required. 3. Otherwise, unremarkable pelvic ultrasound. Patient appears well, nontoxic, abdomen soft, nontender. Patient does have a 2.5 cm ovarian cyst on the right side which would be a good explanation for her pain. She has been afebrile. Her pain has been intermittent over the last 2 we eks so I feel it is unlikely that she is appendicitis. This was discussed with the patient. Patient will be discharged home with short course of antiemetics and analgesics. ED return precautions discussed, patient will follow-up with [facility]. - Vital Signs Vital signs: Temp Pulse Resp BP Pulse Ox 97.8 F 70 18 114/70 99 11/24/19 16:25 11/24/19 16:25 11/24/19 16:25 11/24/19 16:25 11/24/19 16:25 - Laboratory Result Diagrams: 11/24/19 13:35 11/24/19 13:35 Laboratory results interpreted by me: 11/24/19 11/24/19 11/24/19 13:35 13:35 13:35 Hct 35.4 L Calcium 10.3 H Urine Blood LARGE H Urine Ascorbic Acid 20 H Discharge - Discharge Clinical Impression: Nausea Ovarian cyst Qualifiers: Laterality: right Qualified Code(s): N83.201 - Unspecified ovarian cyst, right side Condition: Stable Disposition: HOME, SELF-CARE Additional Instructions: Today been diagnosed with an ovarian cyst. These typically occur in the middle of your typical menstrual cycle. The pain should last for no more than 3-4 days. For your pain: Take ibuprofen 600 mg and acetaminophen 500 mg every 6 hours together as needed for pain. If this does not control your pain you may take norco every 4 hours as needed for severe pain only. Please be very careful about using the norco and only use this for severe pain. Please follow-up with your [facility] regarding today's visit. If you have multiple recurrent cyst that continue to cause you pain like this, you may require hormone therapy such as oral control pills to prevent recurrence of the same. Return if you develop fever, nausea, vomiting, worsening abdominal pain, pass out, or have any other symptoms that are worrisome to you. Prescriptions: Hydrocodone/Acetaminophen [[place] 5-325 mg Tablet] 1 tab PO Q4H PRN 2 Days #8 tablet PRN Reason: For Pain Ondansetron [Zofran Odt 4 mg Tablet] 1 - 2 tab PO Q4H PRN #15 tab.rapdis PRN Reason: For Nausea/Vomiting Forms: Return to Work Referrals: CLARK LEÓN MD [ACTIVE STAFF] - Follow up as needed
== END 2019-11-24 17:10 | disposition home or self-care (01) ==
LOC: ER 12:43
DX: N83.201 Unspecified ovarian cyst, right side (principal); R11.0 Nausea; R10.31 Right lower quadrant pain; R10.2 Pelvic and perineal pain; I10 Essential (primary) hypertension
CPT/HCPCS: 99284; 36415; 84702; 85025; 80053; 81001; 76830; S0119

== ENCOUNTER 2019-12-28 17:44 | Emergency (ER) | payer OTHER, MEDICAID ==
[2019-12-28] MEDS ORDERED: OXYCODONE-ACETAMINOPHEN 5-325 MG TABLET PO ONE (17:57)
--- NOTE | 2019-12-28 18:37 | RADIOLOGY REPORT (SQ) ---
EXAM DESCRIPTION: WRIST RIGHT 3 VIEWS IMAGES COMPLETED DATE/TIME: 12/28/2019 6:18 pm REASON FOR STUDY: punched wall COMPARISON: None. NUMBER OF VIEWS: Three views. TECHNIQUE: AP, lateral, and oblique radiographic images acquired of the right wrist. LIMITATIONS: None. FINDINGS: MINERALIZATION: Normal. BONES: No acute fracture or dislocation. No worrisome bone lesions. Normal alignment. SOFT TISSUES: No soft tissue swelling. No foreign body. OTHER: No other significant finding. IMPRESSION: NEGATIVE STUDY OF THE RIGHT WRIST. NO RADIOGRAPHIC EVIDENCE OF ACUTE INJURY. TECHNICAL DOCUMENTATION: JOB ID: [id number] 2010 [employer]- All Rights Reserved Reading location - IP/workstation name: [email or web address]
--- NOTE | 2019-12-28 19:15 | ER Document Report ---
HPI - HPI Time Seen by Provider: 12/28/19 17:55 Pain Level: 4 Notes: Otherwise healthy 29-year-old female presenting to the emergency department chief complaint of right hand pain. Patient reports she punched a wall during an argument with her mother. She states this occurred just a few hours prior to arrival. She has not taken any medication or applied any ice to the area. She denies any history of fractures to this area. - CONSTITUTIONAL Constitutional: DENIES: Fever, Chills - REPRODUCTIVE Reproductive: DENIES: : Past Medical History - General Information source: Patient - Social History Smoking Status: Never Smoker Family History: DM, Hypertension, Malignancy Patient has suicidal ideation: No Patient has homicidal ideation: No - Past Medical History Cardiac Medical History: Reports: Hx Hypertension - gestational Denies: Hx Heart Attack Renal/ Medical History: Denies: Hx Kidney Stones, Hx Ovarian Cysts, Hx Peritoneal Dialysis, Hx Pelvic Inflammatory Disease Malignancy Medical History: Denies: Hx Breast Cancer, Hx Cervical Cancer, Hx Ovarian Cancer GI Medical History: Denies: Hx Gastroesophageal Reflux Disease, Hx Hiatal Hernia, Hx Ulcer Psychiatric Medical History: 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 Infectious Medical History: Denies: Hx HIV Past Surgical History: Reports: Hx Section - X2-second on March 01, 2019 - Immunizations Immunizations up to date: No Hx Diphtheria, Pertussis, Tetanus Vaccination: Yes - 2017 [facility] Provider Document - CONSTITUTIONAL Notes: PHYSICAL EXAMINATION: GENERAL: Well-appearing, well-nourished and in no acute distress. HEAD: Atraumatic, normocephalic. EYES: Pupils equal round extraocular movements intact, conjunctiva are normal. ENT: Nares patent NECK: Normal range of motion LUNGS: No respiratory distress Musculoskeletal: Normal range of motion, swelling noted to lateral right wrist, cap refill less than 3 seconds, strong radial pulse. No break in the skin. NEUROLOGICAL: Normal speech, normal gait. PSYCH: Normal mood, normal affect. SKIN: Warm, Dry, normal turgor, no rashes or lesions noted. - INFECTION CONTROL TRAVEL OUTSIDE OF THE [place] IN LAST 30 DAYS: No Course - Re-evaluation Re-evalutation: X-ray negative for any acute fracture. Patient will be placed in a cock-up splint for comfort. Discussed home management. Patient verbalized understanding and agreement with plan. - Vital Signs Vital signs: Temp Pulse Resp BP Pulse Ox 98.7 F 89 16 143/101 H 100 12/28/19 17:54 12/28/19 17:54 12/28/19 17:54 12/28/19 17:54 12/28/19 17:54 Procedures - Immobilization Right wrist Pre-Proc Neuro Vasc Exam: Normal Immobilizer type: Cock-up Performed by: PCT Post-Proc Neuro Vasc Exam: Normal Discharge - Discharge Clinical Impression: Contusion of right hand Qualifiers: Encounter type: initial encounter Qualified Code(s): S60.221A - Contusion of right hand, initial encounter Condition: Stable Disposition: HOME, SELF-CARE Additional Instructions: Contusion Your injury has resulted in a contusion -- a crushing of the deep tissues. No injury to important structures was detected during the physician's exam. Contusions vary in the amount of pain they cause, and in the length of time required for healing. Typically, the area will become bruised, and will remain painful to touch for two or three weeks. However, most patients are back to working and playing within a few days. After the initial period of rest and cold-packs, your symptoms (together with the doctor's recommendations) will determine how rapidly you can get back to full activity. Usually this means "do what feels okay, but don't do things that hurt." If re-examination was recommended, it's important to follow up as instructed. Call the doctor or return any time if pain increases, if swelling becomes severe, if you develop numbness or weakness in an injured extremity, or if any other alarming symptoms occur. Ice & Elevation Apply ice packs frequently against the painful area. Many different schedules are recommended, such as "20 minutes on, 20 minutes off" or "one hour ice, two hours rest." If you need to work, you may need to go longer between ice treatments. You should plan to have the area ice packed AT LEAST one-fourth of the time. The ice should be applied over the wrap, tape, or splint, or over a layer of cloth -- not directly against the skin. Some ice bags have a built-in cloth and can be put directly on the skin. Your injured part should be elevated as much as possible over the next 48 hours. Try to keep the injury above the level of the heart. Avoid use of the injured area. Elevation and rest will decrease the swelling. Ibuprofen Ibuprofen is an excellent, safe drug for pain control. In addition, it has potent antiinflammatory effects which are beneficial, especially in the treatment of injuries, arthritis, or tendonitis. It's best to take ibuprofen with food. Persons with ulcer disease or allergy to aspirin should notify their physician of this before taking ibuprofen. Take the medication exactly as prescribed. Don't take additional doses unless instructed to do so by your doctor. If you develop wheezing, shortness of breath, hives, faintness, stomach pain, vomiting, or dark black stools, return for re-evaluation at once. The x-rays were negative for any fracture or dislocation. Please take ibuprofen [id number] as directed to help with pain and inflammation. Referrals: CA BEDOYA MD [Primary Care Provider] - Follow up as needed
[2019-12-28 19:27] VITALS: BP 146/102
== END 2019-12-28 19:19 | disposition home or self-care (01) ==
LOC: ER 17:44
DX: S60.221A Contusion of right hand, initial encounter (principal); M79.641 Pain in right hand; W22.01XA Walked into wall, initial encounter
CPT/HCPCS: 99283

== ENCOUNTER 2020-02-16 18:31 | Emergency (ER) | payer MEDICAID, OTHER ==
[2020-02-16] MEDS ORDERED: METOCLOPRAMIDE HCL ORAL SOLN 10 MG/10 ML UDCUP PO ONE (18:51)
[2020-02-16] MEDS ORDERED: LIDOCAINE 2% VISCOUS SOLN 15 ML UDCUP PO ONE (18:51)
[2020-02-16] MEDS ORDERED: MAG HYDROX/AL HYDROX/SIMETH SUSP 30 ML UDCUP PO ONE (18:51)
--- NOTE | 2020-02-16 18:51 | ER Document Report ---
ED GI/ - General Chief Complaint: Abdominal Pain Stated Complaint: ABDOMINAL PAIN/DIARRHEA/VAGINAL DISCHARGE Time Seen by Provider: 02/16/20 18:42 Primary Care Provider: CA BEDOYA MD [ACTIVE STAFF] - Follow up as needed Notes: HPI: Patient is a 29-year-old female that states the onset yesterday of some epigastric discomfort that she describes as "sharp". No other aggravating relieving factors. No radiation to the back. No nausea or vomiting. She did have one episode of nonbloody diarrhea. She states she has had some pinkish vaginal discharge but denies any missed menstrual periods, with a last menstrual period ending a week ago. She denies any pelvic cramping or lower abdominal pain. ROS: See HPI All other review of systems reviewed and otherwise negative Reviewed vital signs and nursing note as charted by RN. PHYSICAL EXAM: CONSTITUTIONAL: Alert and oriented and responds appropriately to questions. Well-appearing; well-nourished HEAD: Normocephalic; atraumatic EYES: Sclerae non-icteric ENT: Normal nose; no rhinorrhea; moist mucous membranes; pharynx without lesions noted NECK: Supple without meningismus; non-tender; no cervical lymphadenopathy, no masses CARD: Regular rate and rhythm; no murmurs; symmetric distal pulses RESP: Normal chest excursion without splinting or tachypnea; breath sounds clear and equal bilaterally ABD/GI: Normal bowel sounds; non-distended; soft, minimally tender to the epigastric region without rebound or guarding. No right upper quadrant te nderness with negative Sims sign. No lower abdominal tenderness present BACK: The back appears normal and is non-tender to palpation EXT: Normal ROM in all joints; non-tender to palpation; no edema SKIN: No acute lesions noted NEURO: CN 2-12 intact; 5/5 bilateral upper and lower extremity strength with sensation intact to light touch PSYCH: The patient's mood and manner are appropriate. Grooming and personal hygiene are appropriate. TRAVEL OUTSIDE OF THE [place] IN LAST 30 DAYS: No - Related Data Allergies/Adverse Reactions: No Known Allergies Allergy (Verified 11/07/19 17:20) Past Medical History - Social History Smoking Status: Unknown if Ever Smoked Family History: DM, Hypertension, Malignancy - Past Medical History Cardiac Medical History: Reports: Hx Hypertension - gestational Denies: Hx Heart Attack Renal/ Medical History: Denies: Hx Kidney Stones, Hx Ovarian Cysts, Hx Peritoneal Dialysis, Hx Pelvic Inflammatory Disease Malignancy Medical History: Denies: Hx Breast Cancer, Hx Cervical Cancer, Hx Ovarian Cancer GI Medical History: Denies: Hx Gastroesophageal Reflux Disease, Hx Hiatal Hernia, Hx Ulcer Psychiatric Medical History: 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 Patient looks extremely well in no acute distress with stable vital signs. 02/16/20 20:14 On pelvic examination though no obvious external or internal lesions. Minimal whitish discharge in the vaginal vault. No cervical motion tenderness or adnexal masses or tenderness. 02/16/20 22:06 Labs as recorded. No vomiting or diarrhea here. Patient is currently pain- free. Secondary to the quarantine the patient states she has been drinking more alcohol than normal. Patient has no right upper quadrant tenderness with no increased pain with eating. I have explained to the patient the importance of decreasing or stopping alcohol intake and reassessment by the primary doctor. Patient understands this information but strict return precautions explained. - Vital Signs Vital signs: Temp Pulse Resp BP Pulse Ox 98.2 F 86 15 142/88 H 98 02/16/20 20:05 02/16/20 20:05 02/16/20 20:05 02/16/20 20:05 02/16/20 20:05 - Laboratory Result Diagrams: 02/16/20 19:55 02/16/20 19:55 Laboratory results interpreted by me: 02/16/20 19:55 Total Protein 8.4 H Lipase 335.7 H Discharge - Discharge Clinical Impression: Epigastric abdominal pain, Elevated lipase Condition: Good Disposition: HOME, SELF-CARE Additional Instructions: Come back immediately for any increased pain, change in location or quality of pain, fevers or vomiting, worsening diarrhea, or any other acute problems. Please refrain from drinking alcohol as discussed please follow-up with the primary care physician. Referrals: CA BEDOYA MD [ACTIVE STAFF] - Follow up as needed
[2020-02-16 20:13] LABS: ABSOLUTE BASOPHILS # (AUTO) 0.1 10^3/uL (0.0-0.2); ABSOLUTE EOSINOPHILS # (AUTO) 0.1 10^3/uL (0.0-0.6); ABSOLUTE LYMPHOCYTES (AUTO) 2.2 10^3/uL (0.5-4.7); ABSOLUTE MONOCYTES (AUTO) 0.6 10^3/uL (0.1-1.4); ABSOLUTE NEUT (AUTO) 7.4 10^3/uL (1.7-8.2); BASOPHILS % (AUTO) 0.9 % (0-2); EOSINOPHILS % (AUTO) 0.8 % (0-6); HEMATOCRIT 37.1 % (36.0-47.0); HEMOGLOBIN 12.2 g/dL (12.0-15.5); LYMPHOCYTES % (AUTO) 21.4 % (13-45); MEAN CORPUSCULAR HGB CONC 32.9 g/dL (32.0-36.0); MEAN CORPUSCULAR VOLUME 82 fl (80-97); MONOCYTES % (AUTO) 5.4 % (3-13); PLATELET COUNT 300 10^3/uL (150-450); RED BLOOD COUNT 4.51 10^6/uL (3.72-5.28); RED CELL DISTRIBUTION WIDTH 13.2 % (11.5-14.0); SEGMENTED NEUTROPHILS % (AUTO) 71.5 % (42-78); TOTAL CELLS COUNTED % (AUTO) 100 %; WHITE BLOOD COUNT 10.3 10^3/uL (4.0-10.5)
[2020-02-16 20:26] LABS: BACTERIA (WET MOUNT) 3+ BACTERIA SEEN; T.VAGINALIS (WET MOUNT) NO TRICHOMONAS SEEN; WBCS (WET MOUNT) RARE WBCS SEEN; YEAST (WET MOUNT) NO YEAST SEEN
[2020-02-16 20:57] LABS: APPEARANCE,URINE CLEAR; BILIRUBIN,URINE NEGATIVE (NEGATIVE); COLOR,URINE YELLOW; GLUCOSE, URINE NEGATIVE (NEGATIVE); KETONES,URINE NEGATIVE (NEGATIVE); LEUKOCYTE ESTERASE,URINE NEGATIVE (NEGATIVE); NITRITE,URINE NEGATIVE (NEGATIVE); PROTEIN,URINE NEGATIVE (NEGATIVE); URINE SPECIFIC GRAVITY 1.018; UROBILINOGEN,URINE NEGATIVE mg/dL (<2.0)
[2020-02-16 21:46] LABS: ALBUMIN 4.8 g/dL (3.5-5.0); ALKALINE PHOSPHATASE 50 U/L (38-126); ANION GAP 12 (5-19); ASPARTATE AMINO TRANSFERASE 19 U/L (14-36); BILIRUBIN,TOTAL 0.3 mg/dL (0.2-1.3); BLOOD UREA NITROGEN 12 mg/dL (7-20); CARBON DIOXIDE 24 mmol/L (22-30); CHLORIDE 102 mmol/L (98-107); GLUCOSE 94 mg/dL (75-110); TOTAL PROTEIN 8.4 g/dL (6.3-8.2)
[2020-02-16 21:59] LABS: CHLAM PCR NOT DETECTED (NOT DETECT)
[2020-02-16 22:22] VITALS: BP 148/87
== END 2020-02-16 22:23 | disposition home or self-care (01) ==
LOC: ER 18:31
DX: R10.13 Epigastric pain (principal); R79.89 Other specified abnormal findings of blood chemistry; R19.7 Diarrhea, unspecified; N89.8 Other specified noninflammatory disorders of vagina; R10.816 Epigastric abdominal tenderness
CPT/HCPCS: 99284; 36415; 87210; 83690; 85025; 81025; 80053; 81001; 87491; 87591; J3490

== ENCOUNTER 2020-06-19 20:11 | Emergency (ER) | payer OTHER, MEDICAID ==
--- NOTE | 2020-06-19 21:40 | ER Document Report ---
ED Medical Screen (RME) - General Chief Complaint: Pelvic Pain Stated Complaint: POSS FIBROIDS Time Seen by Provider: 06/19/20 21:33 Primary Care Provider: STEPHAN MCKEON MD [Primary Care Provider] - Follow up as needed Mode of Arrival: Ambulatory Information source: Patient Notes: HPI; 29-year-old female 9 para 2 presents to the emergency room complaining of vaginal bleeding and pelvic pain. Patient states she has a history of fibroids and the pain started 3 days ago. States she has been taking ibuprofen with some relief. States she did a home test today that was positive states she also started bleeding today. Describes the bleeding as similar to a normal menstrual cycle. Currently not being followed by OB for her fibroids PE: Alert and oriented x3. Lungs: Clear to auscultation without rales, rhonchi, wheezes. Heart: Regular rate rhythm without murmurs, rubs, gallops. I have greeted and performed a rapid initial assessment of this patient. A comprehensive ED assessment and evaluation of the patient, analysis of test results and completion of the medical decision making process will be conducted by additional ED providers. I have specifically instructed the patient or family members with the patient to immediately return to any nursing staff should anything change in the patient's condition or with their chief complaint. TRAVEL OUTSIDE OF THE [place] 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 Infectious Medical History: Denies: Hx HIV Past Surgical History: Reports: Hx Section - X2-second on March 01, 2019 - Immunizations Immunizations up to date: No Hx Diphtheria, Pertussis, Tetanus Vaccination: Yes - 2016 Physical Exam - Vital signs Vitals: Temp Pulse Resp BP Pulse Ox 98.5 F 77 20 133/85 H 100 06/19/20 20:27 06/19/20 20:27 06/19/20 20:27 06/19/20 20:27 06/19/20 20:27 Course - Vital Signs Vital signs: Temp Pulse Resp BP Pulse Ox 98.5 F 77 20 133/85 H 100 06/19/20 20:27 06/19/20 20:27 06/19/20 20:27 06/19/20 20:27 06/19/20 20:27 Doctor's Discharge - Discharge Referrals: STEPHAN MCKEON MD [Primary Care Provider] - Follow up as needed
[2020-06-19 23:08] LABS: ABSOLUTE BASOPHILS # (AUTO) 0.1 10^3/uL (0.0-0.2); ABSOLUTE EOSINOPHILS # (AUTO) 0.1 10^3/uL (0.0-0.6); ABSOLUTE MONOCYTES (AUTO) 0.4 10^3/uL (0.1-1.4); ABSOLUTE NEUT (AUTO) 5.5 10^3/uL (1.7-8.2); BASOPHILS % (AUTO) 0.8 % (0-2); HEMATOCRIT 31.2 % (36.0-47.0); HEMOGLOBIN 10.1 g/dL (12.0-15.5); LYMPHOCYTES % (AUTO) 25.1 % (13-45); MEAN CORPUSCULAR HEMOGLOBIN 24.7 pg (27.0-33.4); MEAN CORPUSCULAR HGB CONC 32.5 g/dL (32.0-36.0); MEAN CORPUSCULAR VOLUME 76 fl (80-97); MONOCYTES % (AUTO) 4.8 % (3-13); PLATELET COUNT 209 10^3/uL (150-450); SEGMENTED NEUTROPHILS % (AUTO) 68.3 % (42-78); TOTAL CELLS COUNTED % (AUTO) 100 %; WHITE BLOOD COUNT 8.1 10^3/uL (4.0-10.5)
[2020-06-19 23:27] LABS: ALBUMIN 4.6 g/dL (3.5-5.0); ALKALINE PHOSPHATASE 47 U/L (38-126); ANION GAP 10 (5-19); ASPARTATE AMINO TRANSFERASE 20 U/L (14-36); BILIRUBIN,DIRECT 0.3 mg/dL (0.0-0.4); BILIRUBIN,TOTAL 0.4 mg/dL (0.2-1.3); BLOOD UREA NITROGEN 13 mg/dL (7-20); CALCIUM 9.6 mg/dL (8.4-10.2); CARBON DIOXIDE 26 mmol/L (22-30); CHLORIDE 105 mmol/L (98-107); GLUCOSE 96 mg/dL (75-110); POTASSIUM 3.8 mmol/L (3.6-5.0); TOTAL PROTEIN 7.8 g/dL (6.3-8.2)
--- NOTE | 2020-06-20 00:48 | ER Document Report ---
ED General - General Chief Complaint: Pelvic Pain Stated Complaint: POSS FIBROIDS Time Seen by Provider: 06/19/20 21:33 Primary Care Provider: STEPHAN MCKEON MD [ACTIVE STAFF] - Follow up as needed Mode of Arrival: Ambulatory TRAVEL OUTSIDE OF THE [place] IN LAST 30 DAYS: No - HPI Notes: 29-year-old female presents with vaginal bleeding. Patient states she is on her normal menstrual cycle, has been on it for about 3 days. She reports she has a history of fibroids and tends to have heavy bleeding. She has had some lower pelvic cramping as well. Patient states that she took a test at home today and she is concerned it was positive, she states that she saw to blue lines, however her states that he only saw 1 line. Patient states these are her normal menstrual symptoms otherwise. She states she only takes ibuprofen about once a day, which does help with her symptoms. She also applies heat packs. She denies abnormal vaginal discharge. - Related Data Allergies/Adverse Reactions: No Known Allergies Allergy (Verified 11/07/19 17:20) Past Medical History - General Information source: Patient - Social History Smoking Status: Never Smoker Family History: DM, Hypertension, Malignancy - Past Medical History Cardiac Medical History: Reports: Hx Hypertension - gestational Denies: Hx Heart Attack Renal/ Medical History: Denies: Hx Kidney Stones, Hx Ovarian Cysts, Hx Peritoneal Dialysis, Hx Pelvic Inflammatory Disease Malignancy Medical History: Denies: Hx Breast Cancer, Hx Cervical Cancer, Hx Ovarian Cancer GI Medical History: Denies: Hx Gastroesophageal Reflux Disease, Hx Hiatal Hernia, Hx Ulcer Psychiatric Medical History: 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 denies: Vaginal discharge Musculoskeletal: No symptoms reported Skin: No symptoms reported Neurological/Psychological: No symptoms reported Physical Exam - Vital signs Vitals: Temp Pulse Resp BP Pulse Ox 98.5 F 77 20 133/85 H 100 06/19/20 20:27 06/19/20 20:27 06/19/20 20:27 06/19/20 20:27 06/19/20 20:27 - General General appearance: Appears well, Alert In distress: None - HEENT Head: Normocephalic, Atraumatic Extraocular movements intact: Yes Pupils: PERRL - Respiratory Breath sounds: Normal - Cardiovascular Rhythm: Regular Heart sounds: Normal auscultation - Abdominal Tenderness: Nontender - Extremities General upper extremity: Normal ROM General lower extremity: Normal ROM - Neurological Neuro grossly intact: Yes Orientation: AAOx4 - Psychological Associated symptoms: Normal affect - Skin Skin Temperature: Warm Course - Re-evaluation Re-evalutation: 29-year-old female here with main concern of positive home test. Patient has a history of fibroid uterus, she typically does have heavy periods, she states she is on her normal menstrual period, ongoing for the past 3 days, Motrin helps her symptoms. On exam she is well-appearing, vital signs are stable, she has no abdominal or lower pelvic tender numbness. Labs are done through the triage process along with an ultrasound. I have reviewed the ultrasound, appears to be many fibroids, pending final read. Patient was updated that bHCG via blood was negative. 800 mg ibuprofen ordered for further symptomatic control. 06/20/20 01:04 No leukocytosis. Chronic anemia. Electrolytes within normal limits. 06/20/20 01:27 Pelvic ultrasound redemonstrating fibroids, no ovarian issues per radiology 06/20/20 01:31 Patient updated on results. Advised ROASTERMAN follow-up. Rx ibuprofen. Return precautions given, stable at time of discharge. - Vital Signs Vital signs: Temp Pulse Resp BP Pulse Ox 98.5 F 77 20 133/85 H 100 06/19/20 20:27 06/19/20 20:27 06/19/20 20:27 06/19/20 20:27 06/19/20 20:27 - Laboratory Result Diagrams: 06/19/20 22:56 06/19/20 22:56 Laboratory results interpreted by me: 06/19/20 22:56 Hgb 10.1 L Hct 31.2 L MCV 76 L MCH 24.7 L RDW 15.0 H - Diagnostic Test Radiology reviewed: Image reviewed, Reports reviewed Discharge - Discharge Clinical Impression: Fibroid uterus Qualifiers: Uterine leiomyoma location: unspecified location Qualified Code(s): D25.9 - Leiomyoma of uterus, unspecified Disposition: HOME, SELF-CARE Additional Instructions: Please follow-up with RO[facility] in regards to the fibroids. You may continue to use ibuprofen, I prescribed 800 mg which you can take up to 3 times per day. Please return to the emergency department for any concerning worsening symptoms. Prescriptions: Ibuprofen [Ibu] 800 mg PO Q8H PRN #60 tablet PRN Reason: For Pain Referrals: STEPHAN MCKEON MD [ACTIVE STAFF] - Follow up as needed
[2020-06-20] MEDS ORDERED: ACETAMINOPHEN 325 MG TABLET PO ONE (00:50)
[2020-06-20] MEDS ORDERED: IBUPROFEN 800 MG TABLET PO ONE (00:56)
--- NOTE | 2020-06-20 01:12 | RADIOLOGY REPORT (SQ) ---
US PELVIS TRANSVAGINAL HISTORY: 29 years Female right-sided pelvic pain. History of fibroids. COMPARISON: Pelvic ultrasound 11/24/2019 Technique: Endovaginal Imaging of the pelvis was performed. Color and spectral imaging was performed. Uterus: The uterus is retroverted and measures 8.4 x 6.3 x 6.2 cm. The endometrium is normal and measures 5.2 mm. The cervix is closed and measures 2.7 cm in length. Multiple masses are seen in the uterus. In the right side of the uterus in a subserosal location is a 2.9 x 1.9 x 2.1 cm hyperechoic nodule. The largest mass is in the anterior aspect and measures 4.2 x 3.2 x 4.3 cm. A third is on the left side of the uterus within the myometrium and measures 1.5 x 1.8 x 2.2 cm. Overall these masses do not appear to be significantly changed when compared to the previous exam. Right Ovary: The ovary measures 4.5 x 2.2 x 1.9 cm and has normal follicles.. Normal color and spectral doppler waveforms Left Ovary: Measures 4.9 x 2.8 x 2.5 cm and has multiple follicles.. Normal color and spectral doppler waveforms Other: No adnexal mass. Small amount of free fluid is seen. IMPRESSION: 1. Multiple masses in the uterus consistent with fibroids. These do not appear to be significantly changed. 2. Normal-appearing ovaries.
[2020-06-20 01:27] LABS: APPEARANCE,URINE TURBID; BILIRUBIN,URINE NEGATIVE (NEGATIVE); COLOR,URINE YELLOW; GLUCOSE, URINE NEGATIVE (NEGATIVE); KETONES,URINE NEGATIVE (NEGATIVE); LEUKOCYTE ESTERASE,URINE TRACE (NEGATIVE); NITRITE,URINE NEGATIVE (NEGATIVE); PROTEIN,URINE 100 mg/dL (NEGATIVE); UROBILINOGEN,URINE NEGATIVE mg/dL (<2.0)
[2020-06-20 01:38] VITALS: BP 128/94
== END 2020-06-20 01:38 | disposition home or self-care (01) ==
LOC: ER 20:11
DX: D25.9 Leiomyoma of uterus, unspecified (principal); R10.2 Pelvic and perineal pain; N93.9 Abnormal uterine and vaginal bleeding, unspecified; R10.30 Lower abdominal pain, unspecified
CPT/HCPCS: 36415; 76830; 80053; 81001; 84702; 85025; 93976; 99285